=== PATIENT | female | born 1975 | race Caucasian/White ===

== ENCOUNTER 2020-05-07 12:43 | Emergency (ER) | payer SELFPAY ==
[2020-05-07] MEDS ORDERED: PROMETHAZINE INJ 25 MG/ML AMP ONE (14:37)
[2020-05-07] MEDS ORDERED: NA CHLORIDE 0.9% 100 ML IV ONE (14:38)
[2020-05-07] MEDS ORDERED: NA CHLORIDE 0.9% 1,000 ML ONE ×2 (14:38→17:22)
[2020-05-07] MEDS ORDERED: MORPHINE 4 MG/ML SYR ONE ×2 (14:41→17:17)
[2020-05-07 15:32] LABS: Absolute Lymphocytes (CBC) 0.6 K/uL (0.7-4.9); Basophils % 0.7 % (0-1.3); Hematocrit 44.7 % (36.0-45.0); Lymphocytes % 12.1 % (15.3-44.8); MPV 9.6 fL (7.6-11.3); RBC Red Blood Cell Count 4.63 M/uL (3.86-4.86)
[2020-05-07 16:00] LABS: Urine Amorphous Sediment 3+ /HPF (NONE SEEN); Urine Bacteria 20-50 /HPF (<20); Urine Culture Reflex Order REFLEXED; Urine Mucus 4+ /HPF (NONE SEEN)
[2020-05-07 16:00] LABS: Urine Blood TRACE (NEG); Urine Glucose NEGATIVE (NEG); Urine Protein 1+ (NEG)
[2020-05-07 16:04] LABS: Albumin 4.2 g/dL (3.4-5.0); Bilirubin Direct 0.5 mg/dL (0-0.2); Bilirubin Total 1.7 mg/dL (0.2-1.0); Protein, Total 8.1 g/dL (6.4-8.2); Troponin (Emerg Dept Use Only) 0.02 ng/mL (0.0-0.045)
--- NOTE | 2020-05-07 17:01 | RAD REPORT ---
EXAM DESCRIPTION: CTAbdomen Pelvis W Contrast - 05/07/2020 4:48 pm CLINICAL HISTORY: Abdominal pain. ABD PAIN COMPARISON: No comparisons TECHNIQUE: Biphasic CT imaging of the abdomen and pelvis was performed with 100 ml non-ionic IV cont rast. All CT scans are performed using dose optimization technique as appropriate and may include automated exposure control or mA/KV adjustment according to patient size. FINDINGS: The lung bases are clear. The liver demonstrates diffuse fatty infiltration. The spleen, pancreas, adrenal glands and kidneys a re within normal limits. No bowel obstruction, free air, free fluid or abscess. Appendectomy. No evidence of significant lym phadenopathy. No suspicious bony findings. IMPRESSION: No acute intra-abdominal or pelvic finding. Advanced fatty liver.
[2020-05-07] MEDS ORDERED: ONDANSETRON 4 MG/2 ML VIAL ONE (17:22)
--- NOTE | 2020-05-07 17:53 | ER ---
Nurse's Notes [facility] Name: Suzette Bush Age: 44 yrs Sex: Female : 1975 Arrival Date: 05/07/2020 Time: 12:44 Bed 15 Private MD: Diagnosis: Gastritis, unspecified;Vomiting, unspecified Presentation: 05/07 13:13 Chief complaint: Patient states: Severe chest pain since last night, has gotten worse ca1 today. Vomiting x 3 days. A little bit of diarrhea for the past couple of days. Coronavirus screen: Proceed with normal triage. Patient denies a cough. Patient denies shortness of breath or difficulty breathing. Patient denies measured and/or subjective temperature greater than 100.4F prior to today's visit. Patient denies travel on a cruise ship or to a country the [facility] currently lists as an affected area. Patient denies contact with known and/or suspected case of COVID-19. Ebola Screen: Patient negative for fever greater than or equal to 101.5 degrees Fahrenheit, and additional compatible Ebola Virus Disease symptoms Patient denies exposure to infectious person. Patient denies travel to an Ebola-affected area in the 21 days before illness onset. No symptoms or risks identified at this time. Initial Sepsis Screen: Does the patient have a suspected source of infection? No. Patient's initial sepsis screen is negative. Initial Sepsis Screen: Does the patient meet any 2 criteria? No. Patient's initial sepsis screen is negative. Risk Assessment: Do you want to hurt yourself or someone else? Patient reports no desire to harm self or others. Onset of symptoms was May 07, 2020. 13:13 Method Of Arrival: EMS: [facility] ca1 13:13 Acuity: MARIA ELENA 3 ca1 Triage Assessment: 17:41 General: Appears in no apparent distress. comfortable, Behavior is calm, cooperative. ls4 Pain: Denies pain. GI: Reports upper abdominal pain. 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 - Social history:: Smoking status: Patient reports the use of cigarette tobacco products, denies chronic smoking, but will smoke occasionally. - Family history:: not pertinent. - Hospitalizations: : No recent hospitalization is reported. Screenin:10 Abuse screen: Denies threats or abuse. Denies injuries from another. ls4 14:10 Tuberculosis screening: No symptoms or risk factors identified. Fall Risk None ls4 identified. 17:42 Nutritional screening: No deficits noted. ls4 Assessment: 14:15 GI: Abdomen is flat, non-distended, Bowel sounds present X 4 quads. Abd is soft X 4 ls4 quads Abdomen is tender to palpation in epigastric area, right upper quadrant and left upper quadrant Reports upper abdominal pain, cramping, intolerance of fluids, intolerance of food. 14:15 General: Appears uncomfortable, Behavior is anxious. Pain: Complains of pain in right ls4 upper quadrant and left upper quadrant Pain currently is 10 out of 10 on a pain scale. Neuro: No deficits noted. Cardiovascular: No deficits noted. Respiratory: Airway is patent Respiratory effort is even, unlabored, Respiratory pattern is regular, Breath sounds are clear bilaterally. : No deficits noted. No signs and/or symptoms were reported regarding the genitourinary system. Derm: No deficits noted. No signs and/or symptoms reported regarding the dermatologic system. Musculoskeletal: No deficits noted. No signs and/or symptoms reported regarding the musculoskeletal system. 16:00 Reassessment: Patient appears in no apparent distress at this time. Patient and/or ls4 family updated on plan of care and expected duration. Pain level reassessed. Patient is alert, oriented x 3, equal unlabored respirations, skin warm/dry/pink. Patient states symptoms have improved. 17:39 Reassessment: Patient appears in no apparent distress at this time. Patient and/or ls4 family updated on plan of care and expected duration. Pain level reassessed. Patient is alert, oriented x 3, equal unlabored respirations, skin warm/dry/pink. Vital Signs: 13:17 BP 157 / 91; Pulse 86; Resp 15 S; Temp 97.9(O); Pulse Ox 100% on R/A; Weight 49.9 kg ca1 (R); Height 5 ft. 3 in. (160.02 cm) (R); 16:00 BP 148 / 88; Pulse 84; Resp 16; Pulse Ox 99% on R/A; Pain 8/10; ls4 17:40 BP 138 / 79; Pulse 78; Resp 16; Pulse Ox 99% on R/A; Pain 6/10; ls4 13:17 Body Mass Index 19.49 (49.90 kg, 160.02 cm) ca1 ED Course: 12:44 Patient arrived in ED. ag5 13:15 Triage completed. ca1 13:16 Arm band placed on right wrist. ca1 14:09 Rosaline Benoit, MATA is Primary Nurse. ls4 14:10 Cesar Rosenthal MD is Attending Physician. rn 14:10 Patient has correct armband on for positive identification. Bed in low position. Call ls4 light in reach. Side rails up X 1. Pulse ox on. NIBP on. Warm blanket given. Pillow given. Verbal reassurance given. 14:10 No provider procedures requiring assistance completed. ls4 16:47 CT Abd/Pelvis - IV Contrast Only In Process Unspecified. EDMS 17:38 Urine Culture Sent. ls4 17:51 Endy Lott MD is Referral Physician. rn 18:15 Diet: Patient given ice chips. Patient given water. Tolerated well. ls4 05/08 16:20 No apparent distress. ls4 16:20 Initial lab(s) drawn, by me, sent to lab. Inserted saline lock: 22 gauge in left ls4 antecubital area, using aseptic technique. Blood collected. Patient maintains SpO2 saturation greater than 95% on room air. Administered Medications: 05/07 14:59 Drug: morphine 4 mg Route: IVP; Site: left forearm; ls4 15:21 Follow up: Response: No adverse reaction; Marked relief of symptoms; Pain is decreased ls4 14:59 Drug: Phenergan 12.5 mg Route: IVP; Site: left forearm; ls4 15:21 Follow up: Response: No adverse reaction; Marked relief of symptoms ls4 15:21 Drug: NS 0.9% 1000 ml Route: IV; Rate: 1000 ml; Site: left forearm; ls4 17:04 Drug: morphine 4 mg Route: IVP; Site: left forearm; ls4 17:37 Drug: NS 0.9% 1000 ml Route: IV; Rate: 1000 ml; Site: left forearm; ls4 17:37 Drug: Zofran (Ondansetron) 4 mg Route: IVP; Site: left forearm; ls4 18:14 Drug: GI Cocktail without - (Maalox Suspension 30 ml, Lidocaine Liquid 2 % 15 ls4 ml) Route: PO; Outcome: 17:53 Discharge ordered by . rn 18:28 Patient left the ED. ls4 18:28 Discharged to home ambulatory. ls4 18:28 Condition: good 18:28 Discharge instructions given to patient, Instructed on discharge instructions, follow up and referral plans. medication usage, Demonstrated understanding of instructions, follow-up care, wound care, Prescriptions given X 2. Addendum: 05/09/2020 00:36 Addendum: Other VERBAL ORDERS FROM DR ROSENTHAL 05/08/2020 NS 1000 ML BOLUS IV ADMINISTERED l s4 AT 1725, MORPHINE 4 MG IV NOW ADMINISTERED 1726 ZOFRAN 4 MG IV NOW ADMINISTERED 1728, REPEATED BACK TO DR ROSENTHAL AND CONFIRMED BOLUS COMPLETE AT 1819. times charted originally were in error. Signatures: Dispatcher [employer] EDMS Cesar Rosenthal MD MD rn Stewart, Lisa, RN RN ls4 Tequila Sevilla RN RN ca1 Jeffrey Fairchild ag5 Corrections: (The following items were deleted from the chart) 05/08 16:20 05/07 18:46 Patient left the ED. 4 [facility] 05/08 16:21 05/07 14:10 Patient did not have IV access during this emergency room visit. ls4 [facility] 05/08 16:22 05/07 17:42 GI: Abdomen is 4 [facility] 05/09 00:45 00:36 Addendum: Other VERBAL ORDERS FROM DR ROSENTHAL 05/08/2020 NS 1000 ML BOLUS IV ls4 ADMINISTERED AT 1725, MORPHINE 4 MG IV NOW ADMINISTERED 1726 ZOFRAN 4 MG IV NOW ADMINISTERED 1728, REPEATED BACK TO DR ROSENTHAL AND CONFIRMED BOLUS COMPLETE AT 1819. ls4
--- NOTE | 2020-05-07 17:53 | EDPHYS ---
Physician Documentation [facility] Name: Suzette Bush Age: 44 yrs Sex: Female : 1975 Arrival Date: 05/07/2020 Time: 12:44 Bed 15 Private MD: ED Physician Cesar Rosenthal HPI: 05/07 14:20 This 44 yrs old Female presents to ER via EMS with complaints of rn Nausea/Vomiting, Chest Pain. 14:20 The patient presents to the emergency department with nausea, vomiting, abdominal pain. rn 14:20 Onset: The symptoms/episode began/occurred 3 day(s) ago. Possible causes: pancreatitis, rn ETOH. The symptoms are aggravated by pressure. Severity of symptoms: At their worst the symptoms were moderate in the emergency department the symptoms are unchanged. The patient has experienced similar episodes in the past. Reports can't tell if chest pain or abd pain, feels similar to when had pancreatitis in past, no fever/cough/sob. + nausea/vomiting and feels dehydrated.. 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 - Social history:: Smoking status: Patient reports the use of cigarette tobacco products, denies chronic smoking, but will smoke occasionally. - Family history:: not pertinent. - Hospitalizations: : No recent hospitalization is reported. ROS: 14:20 Constitutional: Negative for fever, chills, and weight loss, Eyes: Negative for injury, rn pain, redness, and discharge, Neck: Negative for injury, pain, and swelling, Cardiovascular: Negative for palpitations, and edema, Respiratory: Negative for shortness of breath, cough, wheezing, and pleuritic chest pain, Abdomen/GI: Negative for diarrhea, and constipation, Back: Negative for injury and pain, : Negative for injury, bleeding, discharge, and swelling, MS/Extremity: Negative for injury and deformity, Skin: Negative for injury, rash, and discoloration, Neuro: Negative for headache, weakness, numbness, tingling, and seizure. Exam: 14:20 Constitutional: Thin female, appears uncomfortable Head/Face: Normocephalic, rn atraumatic. ENT: dry MM Cardiovascular: Regular rate and rhythm. No pulse deficits. Respiratory: No increased work of breathing, no retractions or nasal flaring. Abdomen/GI: soft, + epigastric tenderness, no rebound Skin: Warm, dry MS/ Extremity: Pulses equal, no cyanosis. Neurovascular intact. Full, normal range of motion. Equal circumference. Neuro: Awake and alert, GCS 15 Vital Signs: 13:17 BP 157 / 91; Pulse 86; Resp 15 S; Temp 97.9(O); Pulse Ox 100% on R/A; Weight 49.9 kg ca1 (R); Height 5 ft. 3 in. (160.02 cm) (R); 16:00 BP 148 / 88; Pulse 84; Resp 16; Pulse Ox 99% on R/A; Pain 8/10; ls4 17:40 BP 138 / 79; Pulse 78; Resp 16; Pulse Ox 99% on R/A; Pain 6/10; ls4 13:17 Body Mass Index 19.49 (49.90 kg, 160.02 cm) ca1 MDM: 14:10 Patient medically screened. rn 17:50 Differential diagnosis: Nonspecific abd pain, gastritis, pancreatitis, viral rn gastroenteritis, gastroenteritis. Data reviewed: vital signs, nurses notes, lab test result(s), radiologic studies, CT scan, and as a result, I will discharge patient. Counseling: I had a detailed discussion with the patient and/or guardian regarding: the historical points, exam findings, and any diagnostic results supporting the discharge/admit diagnosis, lab results, radiology results, the need for outpatient follow up, to return to the emergency department if symptoms worsen or persist or if there are any questions or concerns that arise at home. Response to treatment: the patient's symptoms have markedly improved after treatment, and as a result, I will discharge patient. Special discussion: Based on the patient's Hx, exam, and Dx evaluation, there is no indication for emergent surgery or inpatient Tx. It is understood by the patient/guardian that if the Sx's persist or worsen they need to return immediately for re-evaluation. I discussed with the patient/guardian in detail that at this point there is no indication for admission to the hospital. It is understood, however, that if the symptoms persist or worsen the patient needs to return immediately for re-evaluation. ED course: Pt improved, CT without acute findings, clinically could be enteritis vs pancreatitis vs gastritis, will dc home with pain meds/prn nausea meds, and return precautions. Advised to stop drinking, as likely what triggered this event. . 05/07 14:19 Order name: Basic Metabolic Panel; Complete Time: 16:31 05/07 14:19 Order name: CBC with Diff; Complete Time: 16: 05/07 14:19 Order name: Hepatic Function; Complete Time: 16: 05/07 14:19 Order name: Lipase; Complete Time: 16: 05/07 14:19 Order name: Troponin (emerg Dept Use Only); Complete Time: 16: 05/07 14:19 Order name: ETOH Level; Complete Time: 16: 05/07 14:19 Order name: Urine Microscopic Only; Complete Time: 16: 05/07 15:09 Order name: Urine Dipstick--Ancillary (enter results); Complete Time: 16: 05/07 15:09 Order name: Urine --Ancillary (enter results); Complete Time: 16: 05/07 16:01 Order name: Urine Culture [facility] 05/07 16:31 Order name: CT Abd/Pelvis - IV Contrast Only; Complete Time: 17:02 05/07 13:17 Order name: EKG; Complete Time: 13:18 [facility] 05/07 13:17 Order name: EKG - Nurse/Tech; Complete Time: 13:24 [facility] 05/07 14:19 Order name: IV Saline Lock; Complete Time: 14:59 05/07 14:19 Order name: Labs collected and sent; Complete Time: 14:59 05/07 14:19 Order name: Urine Test (obtain specimen); Complete Time: 14:59 05/07 14:19 Order name: Urine Dipstick-Ancillary (obtain specimen); Complete Time: 14:59 05/07 17:10 Order name: PO challenge; Complete Time: 17:37 rn Administered Medications: 14:59 Drug: morphine 4 mg Route: IVP; Site: left forearm; ls4 15:21 Follow up: Response: No adverse reaction; Marked relief of symptoms; Pain is decreased ls4 14:59 Drug: Phenergan 12.5 mg Route: IVP; Site: left forearm; ls4 15:21 Follow up: Response: No adverse reaction; Marked relief of symptoms ls4 15:21 Drug: NS 0.9% 1000 ml Route: IV; Rate: 1000 ml; Site: left forearm; ls4 17:04 Drug: morphine 4 mg Route: IVP; Site: left forearm; ls4 17:37 Drug: NS 0.9% 1000 ml Route: IV; Rate: 1000 ml; Site: left forearm; ls4 17:37 Drug: Zofran (Ondansetron) 4 mg Route: IVP; Site: left forearm; ls4 18:14 Drug: GI Cocktail without - (Maalox Suspension 30 ml, Lidocaine Liquid 2 % 15 ls4 ml) Route: PO; Disposition: 05/07/20 17:53 Discharged to Home. Impression: Gastritis, unspecified, Vomiting, unspecified. - Condition is Stable. - Discharge Instructions: Gastritis, Adult, Nausea and Vomiting, Adult. - Prescriptions for Zofran ODT 4 mg Oral tablet,disintegrating - place 1 tablet by TRANSLINGUAL route every 8 hours As needed; 20 tablet. Protonix 40 mg Oral Tablet - take 1 tablet by ORAL route once daily; 30 tablet. Tramadol 50 mg Oral Tablet - take 1 tablet by ORAL route every 8 hours as needed; 15 tablet. - Medication Reconciliation Form, Thank You Letter, Antibiotic Education, Prescription Opioid Use form. - Follow up: Endy Lott MD; When: As needed; Reason: Recheck today's complaints, Re-evaluation by your physician. - Problem is new. - Symptoms have improved. Signatures: Dispatcher [employer] EDVA Cesar Rosenthal MD MD rn Stewart, Lisa, RN RN ls4 Tequila Sevilla RN RN ca1 Corrections: (The following items were deleted from the chart) 18:46 17:53 05/07/2020 17:53 Discharged to Home. Impression: Gastritis, unspecified; ls4 Vomiting, unspecified. Condition is Stable. Forms are Medication Reconciliation Form, Thank You Letter, Antibiotic Education, Prescription Opioid Use. Follow up: Endy Lott; When: As needed; Reason: Recheck today's complaints, Re-evaluation by your physician. Problem is new. Symptoms have improved. rn
[2020-05-07] MEDS ORDERED: MAGNE/ALUM HYDROXD 30 ML UCUP ONE (18:25)
[2020-05-07] MEDS ORDERED: LIDOCAINE VISCOUS 2% SOLN 15 ML UDC ONE (18:25)
[2020-05-07 18:56] VITALS: TEMP 97.9
[2020-05-07 18:57] VITALS: O2SAT 99
[2020-05-07 18:58] VITALS: BP 138/79
--- NOTE | 2020-05-08 10:20 | EKG ---
Test Date: 2020-05-07 Test Time: 13:24:13 Bridge Rigger: GERARD MEASUREMENT RESULTS: Intervals: Rate: 73 CO: 108 QRSD: 58 QT: 382 QTc: 420 [place]: P: 72 CO: 108 QRS: 69 T: 76 INTERPRETIVE STATEMENTS: Sinus rhythm with short CO Otherwise normal ECG No previous ECG available for comparison Electronically Signed On 05-08-20 10:18:55 CDT by Feng Beach
== END 2020-05-07 18:46 | disposition home or self-care (01) ==
LOC: ER 12:43
DX: K29.70 Gastritis, unspecified, without bleeding (principal); F41.9 Anxiety disorder, unspecified; Z72.0 Tobacco use
CPT/HCPCS: 36415; 74177; 80048; 80076; 80320; 81003; 81015; 81025; 83690; 84484; 85025; 87086; 87088; 93005; 96374; 96375; 99284; J2405; J2550; J7030; Q9967

== ENCOUNTER 2020-05-24 05:21 | Inpatient (IN) | payer SELFPAY ==
--- OUTSIDE RECORDS SUMMARY | 2020-05-24 05:25 | XMS REPORT | Clinical Summary ---
:1975 Author Organization [facility] Address [address] [place] [address] Care Team Providers Name Role Phone Asked, No Pcp Primary Care Provider Unavailable Allergies No Known Allergies Medications Medication Sig Dispensed Refills Start Date End Date Status ALPRAZolam (XANAX) Take 0.5 mg by 0 Active 0.5 MG tablet mouth nightly as needed for anxiety. diazePAM (VALIUM) 5 Take 5 mg by 0 Active MG tablet mouth every 6 (six) hours as needed for anxiety. traMADoL (ULTRAM) 50 Take 50 mg by 0 Active mg tabletIndications: mouth every 6 acute pain (six) hours as needed for moderate pain .acute pain. HYDROcodone-acetamino Take 1 tablet by 0 Active phen (NORCO) 7.5-325 mouth every 6 mg per (six) hours as tabletIndications: needed for acute pain moderate pain .acute pain. hydrOXYzine (ATARAX) Take 1 tablet 30 tablet 0 01/31/2020 Active 25 MG tablet (25 mg total) by mouth every 6 (six) hours as needed for anxiety. ibuprofen (ADVIL) 600 Take 1 tablet 20 tablet 0 12/24/2019 MG tablet (600 mg total) by mouth every 6 (six) hours as needed for moderate pain for up to 5 days. Take with food acetaminophen-codeine Take 1 tablet by 20 tablet 0 12/24/2019 12/29/2019 (TYLENOL WITH CODEINE mouth every 6 #3) 300-30 mg per (six) hours as tabletIndications: needed for acute pain severe pain for up to 5 days .acute pain. Do not drive dicyclomine (BENTYL) Take 1 tablet 20 tablet 0 01/09/2020 03 20 mg tablet (20 mg total) by mouth 2 (two) times a day as needed (abdominal cramping) for up to 30 days. promethazine Take 1 tablet 15 tablet 0 01/09/2020 02/08/2020 E xpired (PHENERGAN) 25 MG (25 mg total) by tablet mouth every 6 (six) hours as needed for nausea or vomiting for up to 30 days. Active Problems Not on file Encounters Date Type Specialty Care Team Description 01/31/2020 Emergency Emergency Medicine Gregory Bryan ety reaction (Primary Dx); DO Isaac Epigastric pain 01/09/2020 Emergency Emergency Medicine Krishan Fernandez MD Nausea vomiting and diarrhea (Primary Dx); Volume depletio n 12/24/2019 Emergency Emergency Medicine Isaac Mario MD R ight foot pain (Primary Dx); Contusion of ri ght foot, initial encounter; Fall on stairs, initial encounter after 05/24/2019 Social History Tobacco Use Types Packs/Day Years Used Date Current Some Day Smoker Cigarettes Smokeless Tobacco: Never Used Alcohol Use Drinks/Week oz/Week Comments Yes social Sex Assigned at Date Recorded Not on file Job Start Date Occupation Industry Not on file Not on file Not on file Travel History Travel Start Travel End No recent travel history available. Last Filed Vital Signs Vital Sign Reading Time Taken Comments Blood Pressure 145/90 01/31/2020 3:22 AM CDT Pulse 77 01/31/2020 3:22 AM CDT Temperature 37 C (98.6 F) 01/31/2020 12:29 AM CDT Respiratory Rate 20 01/31/2020 3:22 AM CDT Oxygen Saturation 98% 01/31/2020 3:22 AM CDT Inhaled Oxygen Concentration - - Weight 40.8 kg (90 lb) 01/31/2020 12:27 AM CDT Height 157.5 cm (5' 2") 01/31/2020 12:27 AM CDT Body Mass Index 16.46 01/31/2020 12:27 AM CDT Plan of Treatment Health Maintenance Due Date Last Done Comments CERVICAL CANCER SCREENING 1998 INFLUENZA VACCINE 06/11/2020 Procedures Procedure Name Priority Date/Time Associated Comments Diagnosis ED REFERRAL TO [facility] Routine 01/31/2020 3:03 EPISCOPAL PHYSICIAN AM CDT ORGANIZATION CT ABDOMEN PELVIS W STAT 01/31/2020 2:37 Resu lts for this CONTRAST AM CDT procedure are i n the results section. CT ANGIOGRAM PE CHEST STAT 01/31/2020 2:36 Re sults for this AM CDT procedure are i n the results section. HCG QUALITATIVE, URINE STAT 01/31/2020 12:35 R esults for this SCREEN AM CDT procedure are i n the results section. URINALYSIS STAT 01/31/2020 12:35 Results for this AM CDT procedure are i n the results section. ESTIMATED GFR STAT 01/31/2020 12:30 Results fo r this AM CDT procedure are i n the results section. LIPASE LEVEL STAT 01/31/2020 12:30 Results for this AM CDT procedure are i n the results section. AMYLASE LEVEL STAT 01/31/2020 12:30 Results fo r this AM CDT procedure are i n the results section. HC COMPLETE BLD COUNT STAT 01/31/2020 12:30 Re sults for this W/AUTO DIFF AM CDT procedure are i n the results section. TROPONIN, I-STAT STAT 01/31/2020 12:30 Results for this AM CDT procedure are i n the results section. CREATINE KINASE, TOTAL STAT 01/31/2020 12:30 R esults for this (CPK) AM CDT procedure are i n the results section. LACTIC ACID, I-STAT STAT 01/31/2020 12:30 Resu lts for this AM CDT procedure are i n the results section. COMPREHENSIVE METABOLIC STAT 01/31/2020 12:30 Results for this PANEL AM CDT procedure are i n the results section. ECG ED PRELIMINARY Routine 01/31/2020 12:28 Resul ts for this INTERPRETATION AM CDT procedure are in the results section. ECG 12-LEAD STAT 01/31/2020 12:21 Results for this AM CDT procedure are i n the results section. HCG QUALITATIVE, URINE STAT 01/09/2020 4:59 R esults for this SCREEN PM [employer] procedure are i n the results section. URINALYSIS STAT 01/09/2020 4:59 Results for this PM [employer] procedure are i n the results section. STREP SCREEN CULTURE Routine 01/09/2020 3:59 Res ults for this PM [employer] procedure are i n the results section. GROUP A STREP, RAPID Routine 01/09/2020 3:49 Res ults for this ANTIGEN PM [employer] procedure are i n the results section. INFLUENZA ANTIGEN Routine 01/09/2020 3:49 Result s for this PM [employer] procedure are i n the results section. ESTIMATED GFR STAT 01/09/2020 3:47 Results fo r this PM [employer] procedure are i n the results section. AMYLASE LEVEL STAT 01/09/2020 3:47 Results fo r this PM [employer] procedure are i n the results section. COMPREHENSIVE METABOLIC STAT 01/09/2020 3:47 Results for this PANEL PM [employer] procedure are i n the results section. HC COMPLETE BLD COUNT STAT 01/09/2020 3:47 Re sults for this W/AUTO DIFF PM [employer] procedure are i n the results section. XR FOOT 3+ VW RIGHT STAT 12/24/2019 9:48 Resu lts for this PM [employer] procedure are i n the results section. after 05/24/[address] Abdomen Pelvis W Contrast (01/31/2020 2:37 AM CDT) Specimen Narrative Performed At EXAM: CT ABDOMEN PELVIS W CONTRAST [facility] CLINICAL HISTORY: epigastric and lower chest pain possible pancreatitis TECHNIQUE: Multidetector CT of the abdomen and pelvis was performed following intravenous administration of iodinated cont rast with multiplanar reformats. CT scans are performed using radiation dose reduction techniques (iterative reconstruction and/or automated exposure co ntrol). Technical factors are evaluated and adjusted to ensure appropria te moderation of exposure. Automated dose solid waste management engineer nology is applied to adjust radiation exposure while achievi ng a diagnostic quality image. COMPARISON: None FINDINGS: Lung bases: Unremarkable. Liver: Hepatomegaly and moderate hepatic steatosis. No evidence for suspicious focal hepatic lesion. Gallbladder and biliary: The gallbladder is absent. Clips within the gallbladder fossa. Dilatation of the common duct witho ut an obstructing choledocholithiasis is most consistent w ith a reservoir effect. Pancreas: No focal pancreatic lesion identified. No pancreatic duct dilatation. Spleen: Unremarkable. Gastrointestinal: Stomach is unremarkable in appeara nce. Large and small bowel are normal in caliber. Patie nt is status post appendectomy. Peritoneum: No ascites or free air. Adrenals: Unremarkable. Kidneys and ureters: There is no evidence for large irregular renal mass, obstructing calculi, hydronephrosi s, or hydroureter. Urinary bladder: Incompletely distended bladder with m ild mural thickening; correlate findings with urinalysis to excl ude concurrent cystitis. Reproductive organs: Uterus is unremar kable in appearance per CT. Lymph nodes: No enlarged lymph nodes i n the abdomen or pelvis. Vascular: Unremarkable. Abdominal wall: Unremarkable. Bones: Couple remote, healed right lateral rib fract ures noted. No acute osseous abnormality identified. IMPRESSION: 1.Incompletely distended bladder with mild mural thick ening; correlate findings with urinalysis to exclude concurrent cystiti s. Otherwise no CT evidence for acute abdominopelvic proces s. 2.Hepatomegaly and moderate hepatic stea tosis. 3.Status post cholecystectomy. Dilatation of the commo n duct without an obstructing choledocholithiasis is most consistent wit h a reservoir effect. 4.Additional chronic findings as detaile d above. [id number] Procedure Note Interface, Radiology Results Incoming - 01/31/2020 2:46 AM CDT EXAM: CT ABDOMEN PELVIS W CONTRAST CLINICAL HISTORY: epigastric and lower chest pain possible pancreatitis TECHNIQUE: Multidetector CT of the abdom en and pelvis was performed following intravenous administration of iodinated contrast with multiplanar reformats. CT scans are performed using radiation d ose reduction techniques (iterative reconstruction and/or automated exposure control). Technical factors are evaluated and adjusted to ensure appropriate moderation of exposure. Automated dose solid waste management engineer nology is applied to adjust radiation exposure while achieving a diagnostic quality image. COMPARISON: None FINDINGS: Lung bases: Unremarkable. Liver: Hepatomegaly and moderate hepatic steatosis. No evidence for suspicious focal hepatic lesion. Gallbladder and biliary: The gallbladde r is absent. Clips within the gallbladder fossa. Dilatation of the common duct without an obstructing choledocholithiasis is most consistent with a reservoir effect. Pancreas: No focal pancreatic lesion id entified. No pancreatic duct dilatation. Spleen: Unremarkable. Gastrointestinal: Stomach is unremarkab le in appearance. Large and small bowel are normal in caliber. Patient is status post appendectomy. Peritoneum: No ascites or free air. Adrenals: Unremarkable. Kidneys and ureters: There is no eviden ce for large irregular renal mass, obstructing calculi, hydronephrosis, or hydroureter. Urinary bladder: Incompletely distended bladder with mild mural thickening; correlate findings with urinalysis to exclude concurrent cystitis. Reproductive organs: Uterus is unremark able in appearance per CT. Lymph nodes: No enlarged lymph nodes in the abdomen or pelvis. Vascular: Unremarkable. Abdominal wall: Unremarkable. Bones: Couple remote, healed right late ral rib fractures noted. No acute osseous abnormality identified. IMPRESSION: 1.Incompletely distended bladder with mi ld mural thickening; correlate findings with urinalysis to exclude concurrent cystitis. Otherwise no CT evidence for acute abdominopelvic process. 2.Hepatomegaly and moderate hepatic stea tosis. 3.Status post cholecystectomy. Dilatatio n of the common duct without an obstructing choledocholithiasis is most consistent with a reservoir effect. 4.Additional chronic findings as detaile d above. [id number] Performing Organization Address City/State/Zipcode Phone Number [facility] [address] [place] [address] CT Angiogram Pe Chest (01/31/2020 2:36 AM CDT) Specimen Narrative Performed At [facility]: PE suspected high pretest prob COMPARISON: None. TECHNIQUE: CT angiographic images of the chest were obtained during intravenous administration of iodinated contrast. Co mputerized, reformatted images and 3-D MIP images were obtained an d archived (per CT pulmonary embolism protocol). CT scans are performed using radiation dose reduction techniques (iterative reconstruction and/or automated exposure co ntrol). Technical factors are evaluated and adjusted to ensure appropria te moderation of exposure. Automated dose solid waste management engineer nology is applied to adjust radiation exposure while achievi ng a diagnostic quality image. IMPRESSION: Lungs and large airways: No consolidations, effusion s, or pneumothorax. Trachea and mainstem bronc hi are patent. Heart and pericardium: Heart size is normal. Trace p ericardial effusion. Mediastinum and roxann: Minimal residual thymic tissue is seen of the anterior mediastinum. Lymph nodes: No pathological adenopathy in the roxann, axilla or mediastinum. Pulmonary arteries: No main branch, saddle region, or segmental pulmonary embolus is seen. Vasculature: No aortic aneurysm, disse ction, or pseudoaneurysm. Upper abdomen: No focal abnormality de tected with limited evaluation. Bones: Old right-sided rib fractures. No acute osseous abnormalities. Soft tissues: Unremarkable. Summary: 1. Negative CTA examination for pulmonar y embolism. 2. Lungs without acute airspace disease. [id number] Procedure Note Interface, Radiology Results Incoming - 01/31/2020 2:[address] ANGIOGRAM PE CHEST CLINICAL INDICATION: PE suspected high pretest prob COMPARISON: None. TECHNIQUE: CT angiographic images of th e chest were obtained during intravenous administration of iodinated contrast. Computerized, reformatted images and 3-D MIP images were obtained and archived (per CT pulmonary embolism protocol). CT scans are performed using radiation d ose reduction techniques (iterative reconstruction and/or automated exposure control). Technical factors are evaluated and adjusted to ensure appropriate moderation of exposure. Automated dose solid waste management engineer nology is applied to adjust radiation exposure while achieving a diagnostic quality image. IMPRESSION: Lungs and large airways: No consolidati ons, effusions, or pneumothorax. Trachea and mainstem bronchi are patent. Heart and pericardium: Heart size is no rmal. Trace pericardial effusion. Mediastinum and roxann: Minimal residual thymic tissue is seen of the anterior mediastinum. Lymph nodes: No pathological adenopathy in the roxann, axilla or mediastinum. Pulmonary arteries: No main branch, sadd le region, or segmental pulmonary embolus is seen. Vasculature: No aortic aneurysm, dissec tion, or pseudoaneurysm. Upper abdomen: No focal abnormality det ected with limited evaluation. Bones: Old right-sided rib fractures. N o acute osseous abnormalities. Soft tissues: Unremarkable. Summary: 1. Negative CTA examination for pulmonar y embolism. 2. Lungs without acute airspace disease. [id number] Performing Organization Address City/State/Zipcode Phone Number [facility] [address] [place] [address] Urinalysis (01/31/2020 12:35 AM CDT)Only the most recent of2 resultswithin the time period is included. Glucose, UA Negative Negative [facility] Bilirubin, UA Positive@UBIL (A) Negative [facility] Ketones, UA 2+ (A) Negative [facility] Specific gravity, 1.020 1.001 - 1.035 [facility] Blood, UA Negative Negative [facility] pH, UA 6.5 5.0 - 8.5 [facility] Protein, UA Trace (A) Negative [facility] Urobilinogen, UA <2.0 <2.0 [facility] Nitrite, UA Negative Negative [facility] Leukocyte Small (A) Negative [facility] esterase, UA [facility] Color, UA Dark Yellow [facility] Appearance, UA Cloudy [facility] Specimen Urine Performing Organization Address City/State/Zipcode Phone Number DEPARTMENT OF PATHOLOGY AND [address] [place] [address]. [place], [place] [phone] [facility] hCG qualitative, urine screen (01/31/2020 12:35 AM CDT)Only the most recent of2 resultswithin the time period is included. Pathologist [facility] hCG qualitative, Negative [facility] urine Comment: [facility] Sensitivity of HCG test: 25 mIU/mL [facility] Negative test results in patients suspected to be should be retested with a sample obtained 48-72 hours later, or by performing a quantitative assay. Specimen Urine Performing Organization Address City/[facility] Phone Number DEPARTMENT OF PATHOLOGY AND [address] [place] [phone] Estimated GFR (01/31/2020 12:30 AM CDT)Only the most recent of2 resultswithin the time period is included. Pathologist [facility] Estimated GFR 79 mL/min/1.73 [facility] Comment: [address] EMERGENCY Catergory Units Interpretation [facility] G1 >=90 Normal or high G2 60-89 Mildly decreased G3a 45-59 Mildly to moderately decreas ed G3b 30-44 Moderately to severely decre ased G4 15-29 Severely decreased G5 <15 Kidney failure The eGFR was calculated using the Chronic Kidney Disea se Epidemiology Collaboration (CKD-EPI) equation. Interpretation is based on recommendations of the National Kidney Foundation-Kidney Disease Outcomes Charles lity Initiative (NKF-KDOQI) published in 2014. Specimen Performing Organization Address City/State/Zipcode Phone Number DEPARTMENT OF PATHOLOGY AND [address] [place] [address]. [place], [place] [phone] [facility] [address] [place] [address] Troponin, I-Stat (01/31/2020 12:30 AM CDT) Pathologist [facility] Troponin, I-Stat 0.00 0.00 - 0.08 [facility] Comment: ng/mL [facility] 0.09 - 1.49 ng/ml May indicate increa sed risk of acute [facility] coronary syndrome. >=1.5 ng/ml Consistent with acute myocardial infarction. The diagnostic value of a single normal or non-diagnos tic result is questionable. Serial samples at 2-6 hour i ntervals are required to rule out acute myocardial injury. Specimen Blood Performing Organization Address City/[facility] Phone Number DEPARTMENT OF PATHOLOGY AND [address] [place] [phone] [facility] [address] [place] [address] Lactic acid, I-Stat (01/31/2020 12:30 AM CDT) Pathologist [facility] Lactic acid, I-Stat 1.7 0.5 - 2.2 mmol/L [facility] Specimen Blood Performing Organization Address City/[facility] Phone Number DEPARTMENT OF PATHOLOGY AND [address] [place] [phone] [facility] [address] CBC with platelet and differential (01/31/2020 12:30 AM CDT)Only the most recent of2 resultswithin the time period is included. [facility] WBC 6.35 4.50 - 11.00 k/uL [facility] RBC 4.45 4.20 - 5.50 m/uL [facility] HGB 14.0 12.0 - 16.0 g/dL [facility] HCT 42.4 37.0 - 47.0 % [facility] MCV 95.3 82.0 - 100.0 fL [facility] MCH 31.5 27.0 - 34.0 pg [facility] MCHC 33.0 31.0 - 37.0 g/dL [facility] RDW - SD 43.4 37.0 - 55.0 fL [facility] MPV 10.1 8.8 - 13.2 fL [facility] Platelet count 252 150 - 400 k/uL [facility] Neutrophils 79.1 (H) 39.0 - 69.0 % [facility] Lymphocytes 13.2 (L) 25.0 - 45.0 % [facility] Monocytes 6.3 0.0 - 10.0 % [facility] Eosinophils 0.8 0.0 - 5.0 % [facility] Basophils 0.6 0.0 - 1.0 % [facility] Specimen Blood Performing Organization Address City/State/[facility] Phone Number DEPARTMENT OF PATHOLOGY AND [address] [place] [phone] Lipase level (01/31/2020 12:30 AM CDT) Pathologist Sig nature Lipase 25 13 - 60 U/L [facility] Specimen Serum Performing Organization Address City/[facility] Phone Number [facility] DEPARTMENT OF PATHOLOGY AND [address] [place] [address] [phone] [address] Creatine kinase, total (CPK) (01/31/2020 12:30 AM CDT) Pathologist Sig nature Creatine kinase 36 30 - 190 U/L [facility] Specimen Blood Performing Organization Address City/[facility] Phone Number DEPARTMENT OF PATHOLOGY AND [address] [place] [phone] Amylase level (01/31/2020 12:30 AM CDT)Only the most recent of2 resultswithin the time period is included. Pathologist Sig nature Amylase 31 14 - 97 U/L [facility] Specimen Serum Performing Organization Address City/[facility]/Zipcode Phone Number DEPARTMENT OF PATHOLOGY AND [address] [place] [phone] [facility] [address] [place] [address] Comprehensive metabolic panel (01/31/2020 12:30 AM CDT)Only the most recent of2 resultswithin the time period is included. Sodium 135 128 - 145 [facility] mEq/L [facility] Potassium 5.1 3.6 - 5.1 [facility] mEq/L [facility] CO2 32 18 - 33 mEq/L [facility] Chloride 105 98 - 108 mEq/L [facility] Glucose 136 (H) 73 - 118 mg/dL [facility] Calcium 10.1 8.0 - 10.3 [facility] mg/dL [facility] BUN 11 7 - 22 mg/dL [facility] Creatinine 0.9 0.5 - 0.9 [facility] mg/dL [facility] Alkaline phosphatase 228 (H) 42 - 141 U/L [facility] ALT 60 (H) 10 - 47 U/L [facility] AST 134 (H) 11 - 38 U/L [facility] Total bilirubin 1.2 0.2 - 1.6 [facility] mg/dL [facility] Albumin 4.0 3.3 - 5.5 g/dL [facility] Protein 8.3 (H) 6.4 - 8.1 g/dL [facility] Anion gap -2@ANIO (L) 7 - 15 mEq/L [facility] A/G ratio 0.9 0.7 - 3.8 [facility] Specimen Blood Performing Organization Address City/State/Zipcode Phone Number DEPARTMENT OF PATHOLOGY AND [address] [place] [phone] [facility]IC[facility], [facility] [address] [place] [address] [facility] ECG ED Preliminary Interpretation - Not an Order (01/31/2020 12:28 AM CDT) Narrative Performed At Gregory Bryan DO 2019 3:05 AM ECG ED Preliminary Interpretation - Not an Order Performed by: Gregory Bryan DO Authorized by: Gregory Bryan DO ECG reviewed by ED Physician in the abse nce of a cannery tender engineer: yes Interpretation: Interpretation: abnormal Rate: ECG rate: 91 ECG rate assessment: normal Rhythm: Rhythm: sinus rhythm Ectopy: Ectopy: none QRS: QRS axis: Normal QRS intervals: Normal Conduction: Conduction: normal ST segments: ST segments: Normal T waves: T waves: normal Other findings: Other findings: COLTEN ECG 12 lead (01/31/2020 12:21 AM CDT) Pathologist Sig nature Ventricular rate 91 [facility] Atrial rate 91 [facility] AK interval 118 [facility] QRSD interval 50 [facility] QT interval 348 [facility] QTC interval 428 [facility] P axis 1 84 [facility] QRS axis 1 59 [facility] T wave axis 55 [facility] EKG impression Normal sinus rhythm [facility] MUSE with sinus arrhythmia-Right atrial enlargement-Septal infarct , age undetermined-Abnormal ECG-No previous ECGs available-Electronicall y Signed By Jeanine Condon MD ([id number]) on 02/01/2020 8:23:35 AM Specimen Narrative Performed At This result has an attachment that is no t available. Performing Organization Address City/State/Zipcode Phone Number [facility] MUSE [address] [place] [address] Strep screen culture (01/09/2020 3:59 PM [employer]) Strep screen No beta hemolytic Streptococci isolated [facility] culture isolate Comment: HOSPITAL Specimen Information Specimen Source: Throat Specimen Site: Not otherwise specified Specimen Throat - Not otherwise specified Performing Organization Address City/State/Zipcode Phone Number [facility] DEPARTMENT OF PATHOLOGY AND [address] [place] [phone] [facility] [address] [address] Group A strep, rapid antigen (01/09/2020 3:49 PM LINING CLEANER) Group A strep, Negative for Group A Streptococcus antigen. [facility] rapid antigen Comment: [facility] result Specimen Information [facility]ARE [facility]ENTER Specimen Source: Throat Specimen Site: Not otherwise specified Specimen Throat - Not otherwise specified Performing Organization Address City/State/Zipcode Phone Number DEPARTMENT OF PATHOLOGY AND [address] [place], [place] [address] [facility], [facility] [address] [facility], [place] [address] CARE CENTER Influenza antigen (01/09/2020 3:49 PM LINING CLEANER) Influenza antigen Negative for Influenza A/B antigen. [facility] Comment: [facility] Specimen [facility] Specimen Source: Nar Specimen Site: Other- Detailed Description Required Specimen [facility] - Other- Detailed Description Requ ired Performing Organization Address City/State/Zipcode Phone Number DEPARTMENT OF PATHOLOGY AND [address] [facility]. [place], [place] [address] [facility], [facility] EPISCOPAL [facility] [address] [place] [address] [facility] XR Foot 3+ Vw Right (12/24/2019 9:48 PM LINING CLEANER) Specimen Narrative Performed At EXAMINATION: XR FOOT 3 VW RIGHT [facility] CLINICAL HISTORY: fall COMPARISON: None. IMPRESSION: No acute osseous abnormality or malalign ment is noted. [id number] Procedure Note Interface, Radiology Results Incoming - 12/24/2019 9:53 PM LINING CLEANER EXAMINATION: XR FOOT 3 VW RIGHT CLINICAL HISTORY: fall COMPARISON: None. IMPRESSION: No acute osseous abnormality or malalign ment is noted. [id number] Performing Organization Address City/State/Zipcode Phone Number [facility] [address] [place] [address] after 05/24/2019 Advance Directives For more information, please contact: [phone] Type Date Recorded Patient Sales And Marketing Assistant Explanati on Advance Directives, Living Will and Medical Power of Machine Stapler
--- OUTSIDE RECORDS SUMMARY | 2020-05-24 05:26 | XMS REPORT | Continuity of Care Document ---
:1975 Author Organization [facility] t Address [facility] [place] [address] Care Team Providers Name Role Phone Asked, No Pcp Primary Care Physician Unavailable Jaqueline Bryan DO Attending Clinician Shad Fernandez MD Attending Clinician Stanton Mario MD Attending Clinician Problems This patient has no known problems. Allergies, Adverse Reactions, Alerts This patient has no known allergies or adverse reactions. Social History Social Habit Start Date Stop Date Quantity Comments Source History of Cigarette Smoker [facility] tobacco use Sex Assigned At [facility] ethodi Alcohol intake 2020-01-31 2020-01-31 Current drinker [place] [facility] 00:00:00 00:00:00 of alcohol (finding) Alcohol Comment 2019-12-24 2019-12-24 social [facility] ethodist 00:00:00 00:00:00 Smoking Status Start Date Stop Date Source Current some day smoker 2020-01-31 00:00:00 Hous [facility] Medications Ordered Filled Start Stop Current Ordering Indication Dosage Frequency Signature Comments Components Source Medication Medication Date Date Medication? Clinician (SIG) Name Name traMADoL 2020-0 Yes acute pain 50mg Q6H Take 50 mg [place] (ULTRAM) 50 3-22 by mouth Meth [place] mg tablet 00:45: every 6 st 37 (six) hours as needed for moderate pain .acute pain. HYDROcodone 2019-0 Yes acute pain 1{tbl} Q6H Take 1 [place] -acetaminop 3-22 tablet by Met douglas muller (NORCO) 00:45: mouth st 7.5-325 mg 37 every 6 per tablet (six) hours as needed for moderate pain .acute pain. ALPRAZolam 2020-0 Yes .5mg QD Take 0.5 Chiki ston (XANAX) 0.5 3-22 mg by Methodi MG tablet 00:31: mouth st 08 nightly as needed for anxiety. diazePAM 2020-0 Yes 5mg Q6H Take 5 mg [place] (VALIUM) 5 3-22 by mouth Metho di MG tablet 00:31: every 6 st 08 (six) hours as needed for anxiety. hydrOXYzine 2020-0 Yes 25mg Q6H Take 1 [place] (ATARAX) 25 3-22 tablet (25 Me thodi MG tablet 00:00: mg total) st 00 by mouth every 6 (six) hours as needed for anxiety. dicyclomine 2019-0 2020- No 20mg Q.5D Take 1 [place] ston (BENTYL) 20 -30 tablet (20 M ethodi mg tablet 00:00: 23:59 mg total) st 00 :00 by mouth 2 (two) times a day as needed (abdominal cramping) for up to 30 days. promethazin 2020-0 2020- No 25mg Q6H Take 1 Chiki ston e -30 tablet (25 Methodi (PHENERGAN) 00:00: 23:59 mg total) st 25 MG 00 :00 by mouth tablet every 6 (six) hours as needed for nausea or vomiting for up to 30 days. ibuprofen 2019-0 2020- No 600mg Q6H Take 1 [place] (ADVIL) 600 12-24-18 tablet Metho di MG tablet 00:00: 23:59 ([address] 00 :00 total) by mouth every 6 (six) hours as needed for moderate pain for up to 5 days. Take with food acetaminoph 2020-0 2020- No acute pain 1{tbl} Q6H Take 1 [place] en-codeine 12-24-18 tablet by Met douglas (TYLENOL 00:00: 23:[address] WITH 00 :00 every 6 CODEINE #3) (six) 300-30 mg hours as per tablet needed for severe pain for up to 5 days .acute pain. Do not drive Vital Signs Vital Name Observation Time Observation Value Comments Source Systolic blood 2020-01-31 03:22:00 145 mm[Hg] Farhad Albertist pressure Diastolic blood 2020-01-31 03:22:00 90 mm[Hg] Eddie on Religious pressure Heart rate 2020-01-31 03:22:00 77 /min [place] Religious Respiratory rate 2020-01-31 03:22:00 20 /min Shelby gerson Religious Oxygen saturation in 2020-01-31 03:22:00 98 /min [place] Religious Arterial blood by Pulse oximetry Body temperature 2020-01-31 00:29:46 37 Cammy [place] Religious Body height 2020-01-31 00:27:00 157.5 cm [place] Religious Body weight 2020-01-31 00:27:00 40.824 kg Ceasar Albrecht BMI 2020-01-31 00:27:00 16.46 kg/m2 Ceasar Albrecht Procedures Procedure Date / Time Performing Clinician Source Performed ED REFERRAL TO FENTRESS 2020-01-31 03:03:29 Gregory Bryan WORSHIP PHYSICIAN Jaqueline LANIER CT ABDOMEN PELVIS W 2020-01-31 02:37:07 Gregory Bryan CONTRAST Jaqueline CT ANGIOGRAM PE CHEST 2020-01-31 02:36:42 Gregory Bryan URINALYSIS 2020-01-31 00:35:00 Gregory Bryan Nv stefan Gray HCG QUALITATIVE, URINE 2020-01-31 00:35:00 Gregory Bryan SCREEN Jaqueline COMPREHENSIVE METABOLIC 2020-01-31 00:30:00 Gregory Bryan PANEL Jaqueline LACTIC ACID, I-STAT 2020-01-31 00:30:00 Gregory Bryan CREATINE KINASE, TOTAL 2020-01-31 00:30:00 Gregory Bryan (CPK) Jaqueline TROPONIN, I-STAT 2020-01-31 00:30:00 Gregory Bryan M ethodist Jaqueline HC COMPLETE BLD COUNT 2020-01-31 00:30:00 Gregory Bryan W/AUTO DIFF Jaqueline AMYLASE LEVEL 2020-01-31 00:30:00 Gregory Bryan Nv thodist Jaqueline LIPASE LEVEL 2020-01-31 00:30:00 Gregory Bryan Nv thodist Jaqueline ESTIMATED GFR 2020-01-31 00:30:00 Gregory Bryan Me thodist Jaqueline ECG ED PRELIMINARY 2020-01-31 00:28:05 TessGregory Ceasar Albrecht INTERPRETATION Jaqueline ECG 12-LEAD 2020-01-31 00:21:47 BryanGregory perez Me thodist Jaqueline URINALYSIS 2020-01-09 16:59:00 Omar Fernandezael Shad [place] Me thodist HCG QUALITATIVE, URINE 2020-01-09 16:59:00 Krishan Fernandez ston Religious SCREEN STREP SCREEN CULTURE 2020-01-09 15:59:00 Krishan Fernandez on Religious INFLUENZA ANTIGEN 2020-01-09 15:49:00 Krishan Fernandez GROUP A STREP, RAPID 2020-01-09 15:49:00 Krishan Fernandez on Religious ANTIGEN HC COMPLETE BLD COUNT 2020-01-09 15:47:00 Krishan Fernandez Religious W/AUTO DIFF COMPREHENSIVE METABOLIC 2020-01-09 15:47:00 Krishan Fernandez [place] Religious PANEL AMYLASE LEVEL 2020-01-09 15:47:00 Krishan Fernandez Me thodist ESTIMATED GFR 2020-01-09 15:47:00 Krishan Fernandez Me thodist XR FOOT 3+ VW RIGHT 2019-12-24 21:48:51 Jaqueline Mario Plan of Care Planned Activity Planned Date Details Comments Source Future Scheduled 2020-06-11 INFLUENZA VACCINE [place] [facility] Test 00:00:00 [code = INFLUENZA VACCINE] Future Scheduled 1998 Screening for [place] Me thodist Test 00:00:00 malignant neoplasm of cervix (procedure) [code = 428685222] Encounters Start End Encounter Admission Attending Care Care Encounter Source Date/Time Date/Time Type Type Clinicians Facility Department ID 2020-01-31 2020-01-31 Emergency TESS [facility] [id number] [place] 00:00:00 00:00:[address] 2020-01-09 2020-01-09 Emergency [facility] [id number] [place] 00:00:00 00:00:00 KRISHAN Rios [facility] 2019-12-24 2019-12-24 Emergency [place] [id number] [place] 00:00:00 00:00:00 JAQUELINE Lara [facility] 2019-11-09 2019-11-09 Emergency E [facility] [address] [facility] 20:17:00 20:17:00 melanie Riddle [facility] l [facility] Results Test Description Test Time Test Comments Results Result Comments Source ECG 12 lead 2020-02-01 08:23:38 Test Item Value Reference Range Interpretation Comme nts Ventricular rate (test code = 253) 91 Atrial rate (test code = 255) 91 WA interval (test code = 266) 118 QRSD interval (test code = 260) 50 QT interval (test code = 264) 348 QTC interval (test code = 265) 428 P axis 1 (test code = 267) 84 QRS axis 1 (test code = 268) 59 T wave axis (test code = 270) 55 EKG impression (test code = 273) Normal sinus rhythm with sinus arrhythmia-Right atrial enlargement-Septal infarct , age undetermined-Abnormal ECG-No previous ECGs available- [facility] MethodistLipase [id number] 03:31:28 Test Item Value Reference Range Interpretation Comments Lipase (test code = 3040-3) 25 U/L 13-60 [facility] MethodistCT Abdomen Pelvis W [id number] 02:42:54Hm Interface, Radiology Results - 01/31/2020 2:46 AM CDTEXAM: CT ABDOMEN PELVIS W CONTRASTCLINICAL HISTORY: epigastric and lower chest pain possible pancreatitisTECHNIQUE: Multidetector CT of the abdomen and pelvis was performed following intravenous administration of iodinated contrast with multiplanar reformats.CT scans are performed using radiation dose reduction techniques (iterative reconstruction and/or automated exposure control). Technical factors are evaluated and adjusted to ensure appropriate moderation of exposure. Automated dose management technology is applied to adjust radiation exposure while achieving a diagnostic quality image.COMPARISON: None FINDINGS:Lung bases: Unremarkable.Liver: Hepatomegaly and moderate hepatic steatosis. No evidence for suspicious focal hepatic lesion.Gallbladder and biliary: The gallbladder is absent. Clips within the gallbladder fossa. Dilatation of the common duct without an obstructing choledocholithiasis is most consistent with a reservoir effect. Pancreas: No focal pancreatic lesion identified. No pancreatic duct dilatation.Spleen: Unremarkable.Gastrointestinal: Stomach is unremarkable in appearance. Large and small bowel are normal in caliber. Patient is status post appendectomy.Peritoneum: No ascites or free air.Adrenals: Unr emarkable. Kidneys and ureters: There is no evidence for large irregular renal mass, obstructing calculi, hydronephrosis, or hydroureter.Urinary bladder: Incompletely distended bladder with mild muralthickening; correlate findings with urinalysis to exclude concurrent cystitis. Reproductive organs:Uterus is unremarkable in appearance per CT.Lymph nodes: No enlarged lymph nodes in the abdomen or pelvis.Vascular: Unremarkable.Abdominal wall: Unremarkable.Bones: Couple remote, healed right lateral rib fractures noted. No acute osseous abnormality identified.IMPRESSION:1.Incompletely distended bladder with mild mural thickening; correlate findings with urinalysis to exclude concurrent cystitis. Otherwise no CT evidence for acute abdominopelvic process.2.Hepatomegaly and moderate hepatic steatosis.3.Status post cholecystectomy. Dilatation of the common duct without an obstructing choledocholithiasis is most consistent with a reservoir effect.4.Additional chronic findings as detailed above.[facility]-[id number] [facility]CT Angiogram Pe [id number] 02:42:10Hm Interface, Radiology Results 01/31/2020 2:45 AM CDTCT ANGIOGRAM PE CHESTCLINICAL INDICATION: PE suspected high pretest probCOMPARISON: None.TECHNIQUE: CT angiographic images of the chest were obtained during intravenous administration of iodinated contrast. Computerized, reformattedimages and 3-D MIP images were obtained and archived (per CT pulmonary embolism protocol).CT scans are performed using radiation dose reduction techniques (iterative reconstruction and/or automated exposure control). Technical factors are evaluated and adjusted to ensure appropriate moderation of exposure. Automated dose management technology is applied to adjust radiation exposure while achieving a diagnostic quality image. IMPRESSION:Lungs and large airways: No consolidations, effusions, or pneumo thorax. Trachea and mainstem bronchi are patent.Heart and pericardium: Heart size is normal. Trace pericardial effusion. Mediastinum and roxann: Minimal residual thymic tissue is seen of the anterior mediastinum.Lymph nodes: No pathological adenopathy in the roxann, axilla or mediastinum.Pulmonary arteries: No main branch, saddle region, or segmental pulmonary embolus is seen. Vasculature: No aortic aneurysm, dissection, or pseudoaneurysm.Upper abdomen: No focal abnormality detected with limited evaluation. Bones: Old right-sided rib fractures. No acute osseous abnormalities.Soft tissues: Unremar kable.Summary:1. Negative CTA examination for pulmonary embolism.2. Lungs without acute airspace disease. [facility]-[id number] MethodistCreatine kinase, total (CPK)2020-01-31 01:10:25 Test Item Value Reference Range Interpretation Comments Creatine kinase (test code = 2157-6) 36 U/L 30-190 [place] MethodisthCG qualitative, urine [id number] 01:09:54 Test Item Value Reference Range Interpretation Comments hCG qualitative, Negative Sensitivity of HCG test: urine (test code = 25 mIU/mL Negative test 6-3) results in gary ents suspected to be should be retes mariela with a sample obtained 48-72 hours later, or by performing a qu antitative assay. [place] [id number] 01:09:54 Test Item Value Reference Range Interpretation Comments Glucose, UA (test code = Negative Negative 60518-9) Bilirubin, UA (test code = Positive@UBIL Negative A 5770-3) Ketones, UA (test code = 2+ Negative A 2514-8) Specific gravity, UA (test code 1.020 1.001-1.035 = 5811-5) Blood, UA (test code = 5794-3) Negative Negative pH, UA (test code = 5803-2) 6.5 5.0-8.5 Protein, UA (test code = Trace Negative A 39905-4) Urobilinogen, UA (test code = <2.0 <2.0 76979-7) Nitrite, UA (test code = Negative Negative 5802-4) Leukocyte esterase, UA (test Small Negative A code = 5799-2) Color, UA (test code = 5778-6) Dark Yellow Appearance, UA (test code = Cloudy 5767-9) Lab Interpretation (test code = Abnormal 94378-5) [facility] MethodistComprehensive metabolic [id number] 01:00:14 Test Item Value Reference Range Interpretation Comments Sodium (test code = 2951-2) 135 128- 145 mEq/L Potassium (test code = 2823-3) 5.1 3.6- 5.1 mEq/L CO2 (test code = 2027-9) 32 18- 33 mEq/L Chloride (test code = 2075-0) 105 98- 108 mEq/L Glucose (test code = 2345-7) 136 mg/dL 73-118 H Calcium (test code = 78546-0) 10.1 mg/dL 8-10.3 BUN (test code = 3094-0) 11 mg/dL 7-22 Creatinine (test code = 2160-0) 0.9 mg/dL 0.5-0.9 Alkaline phosphatase (test code = 228 U/L 42-141 H 6768-6) ALT (test code = 1742-6) 60 U/L 10-47 H AST (test code = 1920-8) 134 U/L 11-38 H Total bilirubin (test code = 1.2 mg/dL 0.2-1.6 1974-2) Albumin (test code = 1751-7) 4.0 g/dL 3.3-5.5 Protein (test code = 2885-2) 8.3 g/dL 6.4-8.1 H Anion gap (test code = 32249-7) -2@ANIO 7- 15 mEq/L L A/G ratio (test code = 1759-0) 0.9 0.7-3.8 Lab Interpretation (test code = Abnormal 43263-4) [facility] with platelet and [id number] 01:00:14 Test Item Value Reference Range Interpretation Comments WBC (test code = 15906-3) 6.35 4.50- 11.00 k/uL RBC (test code = 88191-6) 4.45 m/uL 4.2-5.5 HGB (test code = 718-7) 14.0 g/dL 12-16 HCT (test code = 4544-3) 42.4 % 37-47 MCV (test code = 787-2) 95.3 fL 82-100 MCH (test code = 785-6) 31.5 pg 27-34 MCHC (test code = 786-4) 33.0 g/dL 31-37 RDW - SD (test code = 94959-8) 43.4 fL 37-55 MPV (test code = 83694-7) 10.1 fL 8.8-13.2 Platelet count (test code = 252 150- 400 k/uL 36478-5) Neutrophils (test code = 32996-4) 79.1 % 39-69 H Lymphocytes (test code = 36568-4) 13.2 % 25-45 L Monocytes (test code = 97060-8) 6.3 % 0-10 Eosinophils (test code = 05688-4) 0.8 % 0-5 Basophils (test code = 45308-2) 0.6 % 0-1 Lab Interpretation (test code = Abnormal 25943-4) [place] MethodistLactic acid, [id number] 01:00:14 Test Item Value Reference Range Interpretation Comments Lactic acid, I-Stat (test code = 1.7 mmol/L 0.5-2.2 44510-4) [place] MethodistTroponin, [id number] 01:00:14 Test Item Value Reference Range Interpretation Comments Troponin, I-Stat 0.00 ng/mL 0-0.08 0.09 - 1.49 ng/ml (test code = 2359) May indic ate increased risk of acute coronary syndro me. >=1.5 ng/ml Consistent with acute myocardial infar ction. The diagnostic valu e of a single normal o r non-diagnostic result is questionable. Serial samples at 2-6 hour intervalsare re quired to rule out acute myocardial injury. [place] MethodistEstimated [id number] 01:00:14 Test Item Value Reference Range Interpretation Comments Estimated GFR (test 79 mL/min/1.73 m2 Caterg ory Units code = 5488) InterpretationG 1 >=90 Normal or highG2 60-89 Mildly dcvavpilyE4n 45-59 Mildly to mode rately pxdwirlxuM9u 30-44 Moderately to severely decreasedG4 15-29 Severely decre asedG5 <15 Kidn ey failureThe eGFR was calculated chago g the Chronic Kidney Disease Epidemiology Co llaboration (CKD-EPI) equat ion. Interpretation is based on recommendations of the National Kidney Foundation-Kidn ey Disease Outcomes Qualit y Initiative (NKF-KDOQI) pub lished in 2014. [place] MethodistAmylase [id number] 00:58:16 Test Item Value Reference Range Interpretation Comments Amylase (test code = 1798-8) 31 U/L 14-97 [place] MethodistECG ED Preliminary Interpretation - Not an [id number] 00:28:05 Test Item Value Reference Range Interpretation Comments CHECO (test code = CHECO) Gregory Bryan DO 01/31/2020 3:05 [facility] ED Preliminary Interpretation - Not an OrderPerformed by: Gregory Bryan DOAuthorized by: Gregory Bryan DO ECG reviewed by ED Physician in the absence of a knife sharpener: yes Interpretation: Interpretation: abnormal Rate: ECG rate: 91 ECG rate assessment: normal Rhythm: Rhythm: sinus rhythm Ectopy: Ectopy: none QRS: QRS axis: Normal QRS intervals: NormalConduction: Conduction: normal ST segments: ST segments: NormalT waves: T waves: normal Other findings: Other findings: COLTEN Lab Interpretation Abnormal (test code = 41277-1) Ceasar Peñatre screen [id number] 08:01:34 Test Item Value Reference Range Interpretation Comments Strep screen No beta hemolytic Specimen culture Streptococci InformationSpec imen isolate (test isolated Source: Throat Specimen code = 2246) Site: Not other giraldo specified [facility] MethodistGroup A strep, rapid [id number] 03:09:39 Test Item Value Reference Interpretation Comments Range Group A Negative for Group Specimen strep, rapid A Streptococcus InformationS pecimen antigen antigen. Source: ThroatS pecimen result (test Site: Not other giraldo code = specified 1262462) [place] MethodistInfluenza [id number] 16:15:02 Test Item Value Reference Range Interpretation Comments Influenza Negative for Specimen antigen (test Influenza A/B InformationSp ecimen code = 1604) antigen. Source: NaresSp ecimen Site: Other- De tailed Description Req uired Ceasar MethodistXR Foot 3+ Vw [id number] 21:50:16Hm Interface, Radiology Results Incoming - 12/24/2019 9:53 PM CSTEXAMINATION: XR FOOT 3 VW RIGHTCL INICAL HISTORY: fallCOMPARISON: None.IMPRESSION:No acute osseous abnormality or malalignment is noted.[id number] Albrecht
[2020-05-24] MEDS ORDERED: ONDANSETRON 4 MG/2 ML VIAL ONE (05:43)
[2020-05-24] MEDS ORDERED: MORPHINE 4 MG/ML SYR ONE ×4 (05:43→17:06)
[2020-05-24 05:58] LABS: Absolute Lymphocytes (CBC) 0.3 K/uL (0.7-4.9); Basophils % 0.3 % (0-1.3); Lymphocytes % 9.1 % (15.3-44.8); RBC Red Blood Cell Count 4.19 M/uL (3.86-4.86)
[2020-05-24 06:10] LABS: Albumin 4.1 g/dL (3.4-5.0); Bilirubin Direct 0.9 mg/dL (0-0.2); Bilirubin Total 1.8 mg/dL (0.2-1.0); Magnesium 1.9 mg/dL (1.8-2.4); Potassium 4.5 mmol/L (3.5-5.1); Protein, Total 8.4 g/dL (6.4-8.2); Troponin (Emerg Dept Use Only) 0.07 ng/mL (0.0-0.045)
[2020-05-24] MEDS ORDERED: LORazepam 2 MG/ML VIAL ONE (06:32)
[2020-05-24] MEDS ORDERED: NA CHLORIDE 0.9% 1,000 ML ONE ×3 (06:32→14:00)
[2020-05-24] MEDS ORDERED: PROMETHAZINE INJ 25 MG/ML AMP ONE ×3 (06:32→17:06)
--- NOTE | 2020-05-24 06:49 | ER ---
Nurse's Notes [facility] Name: Suzette Bush Age: 44 yrs Sex: Female : 1975 Arrival Date: 05/24/2020 Time: 05:22 Bed 2 Private MD: Diagnosis: Chest pain, unspecified-elevated troponin;Acute pancreatitis;Abnormal results of liver function studies;Dehydration Presentation: 05/24 05:20 Chief complaint: EMS states: "the pt is reporting chest pain that started yesterday and jd3 has gotten worse. the is now reporting nausea and vomiting along with the chest pain.". Coronavirus screen: Proceed with normal triage. Ebola Screen: Patient negative for fever greater than or equal to 101.5 degrees Fahrenheit, and additional compatible Ebola Virus Disease symptoms. Initial Sepsis Screen: Does the patient meet any 2 criteria? No. Patient's initial sepsis screen is negative. Does the patient have a suspected source of infection? No. Patient's initial sepsis screen is negative. Risk Assessment: Do you want to hurt yourself or someone else? Patient reports no desire to harm self or others. Onset of symptoms was May 23, 2020. 05:20 Method Of Arrival: EMS: [facility] jd3 05:20 Acuity: MARIA ELENA 3 jd3 Historical: - Allergies: 05:43 No Known Allergies; jd3 - Home Meds: 05:43 None [Active]; jd3 - PMHx: 05:43 Anxiety; Pancreatitis; jd3 - PSHx: 05:43 Cholecystectomy; jd3 - Immunization history:: Adult Immunizations up to date. - Social history:: Smoking status: Patient reports the use of cigarette tobacco products, denies chronic smoking, but will smoke occasionally. Screenin:45 Abuse screen: Denies threats or abuse. Nutritional screening: No deficits noted. jd3 Tuberculosis screening: No symptoms or risk factors identified. Fall Risk Ambulatory Aid- None/Bed Rest/Nurse Assist (0 pts). Gait- Normal/Bed Rest/Wheelchair (0 pts) Mental Status- Oriented to own ability (0 pts). Total Henao Fall Scale indicates No Risk (0-24 pts). Assessment: 05:44 General: Appears uncomfortable, Behavior is cooperative, appropriate for age, anxious, jd3 restless. Pain: Complains of pain in chest Pain does not radiate. Quality of pain is described as sharp, stabbing, Pain began 1 day ago. Neuro: Level of Consciousness is awake, alert, obeys commands, Oriented to person, place, time, situation. Cardiovascular: Reports chest pain, Capillary refill < 3 seconds Patient's skin is warm and dry. Rhythm is sinus tachycardia. Respiratory: Airway is patent Respiratory effort is even, unlabored, Respiratory pattern is regular, symmetrical, Denies cough, shortness of breath. GI: Abdomen is flat, non-distended, Abd is soft X 4 quads Abdomen is tender to palpation X 4 quads. Reports nausea, vomiting. : No signs and/or symptoms were reported regarding the genitourinary system. EENT: No signs and/or symptoms were reported regarding the EENT system. Derm: Skin is intact, Skin is dry, Skin is normal, Skin temperature is warm. Musculoskeletal: Circulation, motion, and sensation intact. Range of motion: intact in all extremities. 06:40 Reassessment: No changes from previously documented assessment. Patient and/or family jd3 updated on plan of care and expected duration. Pain level reassessed. Patient is alert, oriented x 3, equal unlabored respirations, skin warm/dry/pink. 08:00 Reassessment: Asked Toshia HEIN what the POC is for the pt. Stated that the pt would be sv an admission. Waiting on admission orders. 11:18 Reassessment: [facility] texted Dr Domingo to see if he was taking over care for the sv pt. He stated he was. I informed him that we need admission orders for the pt. Informed him that pt is requesting pain meds. He stated he would send down Mohan AMADOR to assess the pt. 11:38 Reassessment: Patient appears in no apparent distress at this time. No changes from sv previously documented assessment. Patient and/or family updated on plan of care and expected duration. Pain level reassessed. Patient is alert, oriented x 3, equal unlabored respirations, skin warm/dry/pink. 13:00 Reassessment: Patient appears in no apparent distress at this time. Patient and/or sv family updated on plan of care and expected duration. Pain level reassessed. Patient is alert, oriented x 3, equal unlabored respirations, skin warm/dry/pink. 14:20 Reassessment: Patient appears in no apparent distress at this time. No changes from sv previously documented assessment. Patient and/or family updated on plan of care and expected duration. Pain level reassessed. Patient is alert, oriented x 3, equal unlabored respirations, skin warm/dry/pink. Vital Signs: 05:43 BP 158 / 111; Pulse 107; Resp 19 S; Temp 96.7(A); Pulse Ox 99% on R/A; Weight 43.09 kg jd3 (R); Height 5 ft. 3 in. (160.02 cm) (R); Pain 10/10; 07:00 BP 151 / 105; Pulse 96; Resp 23; Pulse Ox 100% on R/A; sv 08:00 BP 163 / 100; Pulse 85; Resp 20; Pulse Ox 100% on R/A; sv 09:00 BP 168 / 104; Pulse 82; Resp 28; Pulse Ox 100% on R/A; sv 10:00 BP 148 / 116; Pulse 111; Resp 18; Pulse Ox 100% on R/A; sv 11:00 BP 158 / 105; Pulse 83; Resp 18; Pulse Ox 100% on R/A; sv 12:16 BP 152 / 104; Pulse 89; Resp 21; Pulse Ox 99% on R/A; sv 14:00 BP 152 / 104; Pulse 83; Resp 17; Pulse Ox 100% on R/A; sv 15:00 BP 154 / 96; Pulse 81; Resp 21; Pulse Ox 99% ; sv 05:43 Body Mass Index 16.83 (43.09 kg, 160.02 cm) jd3 ED Course: 05:22 Patient arrived in ED. cl3 05:30 Inserted saline lock: 20 gauge in right antecubital area, using aseptic technique. jd3 Blood collected. 05:31 Arturo Diez, RN is Primary Nurse. jd3 05:42 Triage completed. jd3 05:44 Arm band placed on. jd3 05:45 Patient has correct armband on for positive identification. Bed in low position. Call jd3 light in reach. Side rails up X 1. manager monitoring on. Pulse ox on. NIBP on. 05:46 Patient maintains SpO2 saturation greater than 95% on room air. jd3 05:58 XRAY Chest (1 view) In Process Unspecified. EDMS 05:59 Toshia Garcia FNP-C is PHCP. kb 05:59 Francis Crum MD is Attending Physician. kb 06:48 Declan Johnson MD is Hospitalizing Provider. kb 07:[address] via stretcher. sv 07:30 CT Abd/Pelvis - IV Contrast Only In Process Unspecified. EDMS 07:35 Suzette Wheat, RN is Primary Nurse. sv 14:20 No provider procedures requiring assistance completed. Patient admitted, IV remains in sv place. intact. Administered Medications: 05:39 Drug: morphine 4 mg Route: IVP; Site: right antecubital; jd3 06:30 Follow up: Response: No adverse reaction; RASS: Restless (+1) jd3 05:39 Drug: Zofran (Ondansetron) 4 mg Route: IVP; Site: right antecubital; jd3 06:30 Follow up: Response: No adverse reaction jd3 06:28 Drug: Ativan 0.5 mg Route: IVP; Site: right antecubital; rr5 07:00 Follow up: Response: No adverse reaction jd3 06:31 Drug: Phenergan 12.5 mg Route: IVP; Site: right antecubital; rr5 07:00 Follow up: Response: No adverse reaction jd3 06:32 Drug: NS 0.9% 1000 ml Route: IV; Rate: 1000 ml; Site: right antecubital; rr5 09:00 Follow up: Response: No adverse reaction; IV Status: Completed infusion; IV Intake: sv 1000ml 07:58 Drug: NS 0.9% 1000 ml Route: IV; Rate: 1000 ml; Site: right antecubital; sv 09:00 Follow up: Response: No adverse reaction; IV Status: Completed infusion; IV Intake: sv 1000ml 07:58 Drug: morphine 4 mg Route: IVP; Site: right antecubital; sv 08:30 Follow up: Response: No adverse reaction; RASS: Light sedation (-2) sv 11:38 Drug: Phenergan 12.5 mg Route: IVP; Site: right antecubital; sv 12:00 Follow up: Response: No adverse reaction; Marked relief of symptoms sv 11:40 Drug: morphine 4 mg {Note: rass0.} Route: IVP; Site: right antecubital; sv 12:00 Follow up: Response: No adverse reaction; Pain is decreased; RASS: Light sedation (-2) sv Intake: 09:00 IV: 1000ml; Total: 1000ml. sv 09:00 IV: 1000ml; Total: 2000ml. sv Outcome: 06:48 Decision to Hospitalize by Provider. kb 14:20 Admitted to ER Hold. [facility]. sv 14:20 Condition: stable 14:20 Instructed on the need for admit. 21:04 Patient left the ED. mg2 Signatures: Dispatcher [employer] EDMS Toshia Garcia, VICTORIA-C [employer] CONSULTANT-Suzette Arreguin, RN RN sv Arturo Diez RN RN jd3 Danilo Robles RN RN mg2 Rashel Adams RN RN rr5 Kayla Abarca cl3 Corrections: (The following items were deleted from the chart) 05:44 05:43 BP 158 / 11; Pulse 107bpm; Resp 19bpm; Spontaneous; Pulse Ox 99% RA; Temp 96.7F jd3 Axillary; 43.09 kg Reported; Height 5 ft. 3 in. Reported; BMI: 16.8; Pain 10/10; jd3
--- NOTE | 2020-05-24 06:49 | EDPHYS ---
Physician Documentation [facility] Name: Suzette Bush Age: 44 yrs Sex: Female : 1975 Arrival Date: 05/24/2020 Time: 05:22 Bed 2 Private MD: ED Physician Francis Crum HPI: 05/24 06:06 This 44 yrs old Female presents to ER via EMS with complaints of Chest Pain, kb Cough. 06:06 The patient or guardian reports chest pain that is located primarily in the epigastric kb area. Onset: 2 day(s) ago. The pain does not radiate. Associated signs and symptoms: Pertinent positives: abdominal pain, nausea, vomiting, Pertinent negatives: cough, diaphoresis, dizziness, headache, lower extremity pain, lower extremity swelling, lightheadedness, near syncope, palpitations, recent travel, shortness of breath, syncope. The chest pain is described as aching. Duration: The patient or guardian reports a single episode, that is still ongoing, and unchanged. Modifying factors: The symptoms are alleviated by nothing. the symptoms are aggravated by nothing. Severity of pain: At its worst the pain was mild moderate in the emergency department the pain is unchanged. The patient has experienced a previous episode. The patient has not recently seen a physician. Pt reports chest pain (epigastic area) that started 2 or 3 days ago. States vomiting started last night and she hasn't been able to tolerate anything since then. Reports similar symptoms in the past and was diagnosed with gastritis at the time. Historical: - Allergies: 05:43 No Known Allergies; jd3 - Home Meds: 05:43 None [Active]; jd3 - PMHx: 05:43 Anxiety; Pancreatitis; jd3 - PSHx: 05:43 Cholecystectomy; jd3 - Immunization history:: Adult Immunizations up to date. - Social history:: Smoking status: Patient reports the use of cigarette tobacco products, denies chronic smoking, but will smoke occasionally. ROS: 06:05 Constitutional: Negative for fever, chills, and weight loss, Respiratory: Negative for kb shortness of breath, cough, wheezing, and pleuritic chest pain, Back: Negative for injury and pain, MS/Extremity: Negative for injury and deformity, Skin: Negative for injury, rash, and discoloration, Neuro: Negative for headache, weakness, numbness, tingling, and seizure. 06:05 Cardiovascular: Positive for chest pain, Negative for edema, orthopnea, palpitations, paroxysmal nocturnal dyspnea. 06:05 Abdomen/GI: Positive for abdominal pain, nausea and vomiting, Negative for diarrhea, constipation. Exam: 06:05 Constitutional: This is a well developed, well nourished patient who is awake, alert, kb and in no acute distress. Head/Face: Normocephalic, atraumatic. Chest/axilla: Normal chest wall appearance and motion. Nontender with no deformity. No lesions are appreciated. Cardiovascular: Regular rate and rhythm with a normal S1 and S2. No gallops, murmurs, or rubs. Normal PMI, no JVD. No pulse deficits. Respiratory: Lungs have equal breath sounds bilaterally, clear to auscultation and percussion. No rales, rhonchi or wheezes noted. No increased work of breathing, no retractions or nasal flaring. Back: No spinal tenderness. No costovertebral tenderness. Full range of motion. Skin: Warm, dry with normal turgor. Normal color with no rashes, no lesions, and no evidence of cellulitis. MS/ Extremity: Pulses equal, no cyanosis. Neurovascular intact. Full, normal range of motion. Neuro: Awake and alert, GCS 15, oriented to person, place, time, and situation. Cranial nerves II-XII grossly intact. Motor strength 5/5 in all extremities. Sensory grossly intact. Cerebellar exam normal. Normal gait. 06:05 Abdomen/GI: Inspection: abdomen appears normal, Bowel sounds: normal, in all quadrants, Palpation: soft, in all quadrants, mild abdominal tenderness, in all quadrants. 06:08 ECG was reviewed by the Attending Physician. Vital Signs: 05:43 BP 158 / 111; Pulse 107; Resp 19 S; Temp 96.7(A); Pulse Ox 99% on R/A; Weight 43.09 kg jd3 (R); Height 5 ft. 3 in. (160.02 cm) (R); Pain 10/10; 07:00 BP 151 / 105; Pulse 96; Resp 23; Pulse Ox 100% on R/A; sv 08:00 BP 163 / 100; Pulse 85; Resp 20; Pulse Ox 100% on R/A; sv 09:00 BP 168 / 104; Pulse 82; Resp 28; Pulse Ox 100% on R/A; sv 10:00 BP 148 / 116; Pulse 111; Resp 18; Pulse Ox 100% on R/A; sv 11:00 BP 158 / 105; Pulse 83; Resp 18; Pulse Ox 100% on R/A; sv 12:16 BP 152 / 104; Pulse 89; Resp 21; Pulse Ox 99% on R/A; sv 14:00 BP 152 / 104; Pulse 83; Resp 17; Pulse Ox 100% on R/A; sv 15:00 BP 154 / 96; Pulse 81; Resp 21; Pulse Ox 99% ; sv 05:43 Body Mass Index 16.83 (43.09 kg, 160.02 cm) jd3 MDM: 05:59 Patient medically screened. kb 06:05 Data reviewed: vital signs, nurses notes. Data interpreted: Pulse oximetry: on room air kb is 99 %. Interpretation: normal. 06:47 Counseling: I had a detailed discussion with the patient and/or guardian regarding: the kb historical points, exam findings, and any diagnostic results supporting the discharge/admit diagnosis, lab results, radiology results, the need for further work-up and treatment in the hospital. Physician consultation: Declan Johnson MD was contacted at 06:47, regarding admission, to the telemetry unit. patient's condition, and will see patient in ED. 06:55 ED course: Pt reports she developed pancreatitis after cholecystectomy. States it hurts kb at times when she eats bad, but this time was worse than others. States she ate bad last week. . 05/24 05:32 Order name: Basic Metabolic Panel; Complete Time: 06:17 [facility] 05/24 05:32 Order name: CBC with Diff; Complete Time: 07:09 d3 05/24 05:32 Order name: LFT's; Complete Time: 06:17 jd3 05/24 05:32 Order name: Magnesium; Complete Time: 06:17 jd3 05/24 05:32 Order name: NT PRO-BNP; Complete Time: 06:17 jd3 05/24 05:32 Order name: PT-INR; Complete Time: 06:08 jd3 05/24 05:32 Order name: Troponin (emerg Dept Use Only); Complete Time: 06:17 jd3 05/24 05:32 Order name: XRAY Chest (1 view); Complete Time: 08:33 jd3 05/24 06:04 Order name: Lipase; Complete Time: 06:22 kb 05/24 06:42 Order name: CT Abd/Pelvis - IV Contrast Only; Complete Time: 08:30 kb 05/24 06:42 Order name: Lipid Profile; Complete Time: 07:32 kb 05/24 07:08 Order name: Manual Differential; Complete Time: 07:09 EDMS 05/24 12:40 Order name: COVID-19 kb 05/24 14:30 Order name: Lipase; Complete Time: 14:32 EDMS 05/24 05:32 Order name: EKG; Complete Time: 05:33 jd3 05/24 05:32 Order name: Cardiac monitoring; Complete Time: 05:33 jd3 05/24 05:32 Order name: EKG - Nurse/Tech; Complete Time: 05:39 jd3 05/24 05:32 Order name: IV Saline Lock; Complete Time: 05:33 jd3 05/24 05:32 Order name: Labs collected and sent; Complete Time: 05:33 jd3 05/24 05:32 Order name: O2 Per Protocol; Complete Time: 05:33 jd3 05/24 13:15 Order name: NPO; Complete Time: 15:23 EDMS 05/24 05:32 Order name: O2 Sat Monitoring; Complete Time: 05:33 jd3 EC:08 Rate is 104 beats/min. Rhythm is regular. QRS [place] is Normal. SD interval is normal at kb 126 msec. QRS interval is normal at 66 msec. QT interval is normal at 320 msec. Administered Medications: 05:39 Drug: morphine 4 mg Route: IVP; Site: right antecubital; jd3 06:30 Follow up: Response: No adverse reaction; RASS: Restless (+1) jd3 05:39 Drug: Zofran (Ondansetron) 4 mg Route: IVP; Site: right antecubital; jd3 06:30 Follow up: Response: No adverse reaction jd3 06:28 Drug: Ativan 0.5 mg Route: IVP; Site: right antecubital; rr5 07:00 Follow up: Response: No adverse reaction jd3 06:31 Drug: Phenergan 12.5 mg Route: IVP; Site: right antecubital; rr5 07:00 Follow up: Response: No adverse reaction jd3 06:32 Drug: NS 0.9% 1000 ml Route: IV; Rate: 1000 ml; Site: right antecubital; rr5 09:00 Follow up: Response: No adverse reaction; IV Status: Completed infusion; IV Intake: sv 1000ml 07:58 Drug: NS 0.9% 1000 ml Route: IV; Rate: 1000 ml; Site: right antecubital; sv 09:00 Follow up: Response: No adverse reaction; IV Status: Completed infusion; IV Intake: sv 1000ml 07:58 Drug: morphine 4 mg Route: IVP; Site: right antecubital; sv 08:30 Follow up: Response: No adverse reaction; RASS: Light sedation (-2) sv 11:38 Drug: Phenergan 12.5 mg Route: IVP; Site: right antecubital; sv 12:00 Follow up: Response: No adverse reaction; Marked relief of symptoms sv 11:40 Drug: morphine 4 mg {Note: rass0.} Route: IVP; Site: right antecubital; sv 12:00 Follow up: Response: No adverse reaction; Pain is decreased; RASS: Light sedation (-2) sv Disposition: 05/25 02:46 Co-signature as Attending Physician, Francis Crum MD. [facility] Disposition: 05/24/20 06:48 Hospitalization ordered by Declan Johnson for Inpatient Admission. Preliminary diagnosis are Chest pain, unspecified - elevated troponin, Acute pancreatitis, Abnormal results of liver function studies, Dehydration. - Bed requested for Telemetry/MedSurg (Inpatient). - Status is Inpatient Admission. mg2 - Condition is Stable. - Problem is new. - Symptoms are unchanged. Signatures: Dispatcher [employer] [facility] Toshia Gracia, VICTORIA-Willow KESSLER-Suzette Arreguin RN RN sv Garcia, Cindy, RN RN cg Arturo Diez RN RN jDanilo Land RN RN mg2 Rashel Adams RN RN rr5 Francis Crum MD MD 7 Corrections: (The following items were deleted from the chart) 05/24 14:20 06:48 Hospitalization Ordered by Declan Johnson MD for Inpatient Admission. Preliminary sv diagnosis is Chest pain, unspecified - elevated troponin; Acute pancreatitis; Abnormal results of liver function studies; Dehydration. Bed requested for Telemetry/MedSurg (Inpatient). Status is Inpatient Admission. Condition is Stable. Problem is new. Symptoms are unchanged. kb 20:41 14:20 05/24/2020 06:48 Hospitalization Ordered by Declan Johnson MD for Inpatient cg Admission. Preliminary diagnosis is Chest pain, unspecified - elevated troponin; Acute pancreatitis; Abnormal results of liver function studies; Dehydration. Bed requested for [facility] ER HOLD. Status is Inpatient Admission. Condition is Stable. Problem is new. Symptoms are unchanged. sv 21:04 20:41 05/24/2020 06:48 Hospitalization Ordered by Declan Johnson MD for Inpatient mg2 Admission. Preliminary diagnosis is Chest pain, unspecified - elevated troponin; Acute pancreatitis; Abnormal results of liver function studies; Dehydration. Bed requested for Telemetry/MedSurg (Inpatient). Status is Inpatient Admission. Condition is Stable. Problem is new. Symptoms are unchanged. cg
[2020-05-24 07:07] LABS: Blood Morphology Comment NOT SEEN (NOT SEEN); Platelet Estimate ADEQ
--- NOTE | 2020-05-24 08:25 | RAD REPORT ---
EXAM DESCRIPTION: CTAbdomen Pelvis W Contrast - 05/24/2020 7:29 am CLINICAL HISTORY: Abdominal pain. ABD PAIN COMPARISON: Abdomen Pelvis W Contrast dated 05/07/2020 TECHNIQUE: Biphasic CT imaging of the abdomen and pelvis was performed with 100 ml non-ionic IV cont rast. All CT scans are performed using dose optimization technique as appropriate and may include automated exposure control or mA/KV adjustment according to patient size. FINDINGS: The lung bases are clear. The liver demonstrates advanced fatty infiltration. Cholecystectomy. Spleen, pancreas, adrenal glands and kidneys are within normal limits. No bowel obstruction, free air, free fluid or abscess. The appendix is normal. No evidence of signi ficant lymphadenopathy. No suspicious bony findings. IMPRESSION: No acute intra-abdominal or pelvic finding. Advanced fatty liver.
--- NOTE | 2020-05-24 08:32 | RAD REPORT ---
EXAM DESCRIPTION: RAD - Chest Single View - 05/24/2020 5:59 am CLINICAL HISTORY: CHEST PAIN Chest pain. COMPARISON: No comparisons FINDINGS: Portable technique limits examination quality. The lungs are grossly clear. The heart is normal in size. No displaced fractures. IMPRESSION: No acute intrathoracic process suspected.
[2020-05-24] MEDS: NA CHLORIDE 0.9% 1,000 ML IV SCH ×2 (13:00→22:02)
[2020-05-24] MEDS ORDERED: ACETAMINOPHEN 500 MG TAB PO PRN (13:07)
--- NOTE | 2020-05-24 13:23 | P.HP ---
Certification for Inpatient With expected LOS: >2 Midnights Patient will require the following post-hospital care: None Practitioner: I am a practitioner with admitting privileges, knowledge of patient current condition, hospital course, and medical plan of care. Services: Services provided to patient in accordance with Admission requirements found in Title 42 Section 412.3 of the Code of Federal Regulations <Liam Wiley - Last Filed: 05/24/20 13:28> Patient History Date of Service: 05/24/20 Primary Care Provider: [facility] Reason for admission: Acute Pancreatitis/Chest pain History of Present Illness: 44-year-old female with past medical history of alcohol abuse and pancreatitis presents to the emergency room complaining of chest pain and cough. Patient states that she did drink alcohol for the past 2 days. Woke up around 11:00 p.m. last night with nausea and has been vomiting since arrival to the ED. Patient states she has vomited probably 20 times. States that the chest pain she feels is epigastric centered mostly in the epigastric region and some in the mid chest. Denies radiation, shortness of breath, dyspnea on exertion. States that she has been coughing due to the nausea and vomiting. States that she has had pancreatitis in the past. In the emergency room patient's lab work show elevated liver enzymes with a total bili of 1.8, AST of 276, ALT of 148, alk-phos 317, Troponin slightly elevated at 0.7. CT of the abdomen pelvis shows prior cholecystectomy and a fatty liver. EKG unremarkable. On examination patient is calm. She is alert oriented x3. She is in no distress. She is complaining of feeling nauseous and wanting to vomit again. States that she needs better pain control and is asking for more Ativan and more morphine specifically. Patient admits to drinking alcohol over the weekend. Patient will be placed as an inpatient on further evaluated. Home medications list reviewed: Yes (none) - Past Medical/Surgical History Diabetic: No -: Pancreatitis Past Surgical History: Reviewed- Non-Contributory -: Cholecystectomy Psychosocial/ Personal History: Lives at home - Family History Family History: Reviewed- Non-Contributory - Social History Smoking Status: Current some day smoker Counseled patient to stop smoking for: more than 10 minutes Smoking therapy provided: No (Refused) Patient receptive to therapy: No Alcohol use: Yes CD- Drugs: No Caffeine use: Yes Place of Residence: Home <Liam Wiley - Last Filed: 05/24/20 13:28> Date of Service: 05/24/20 <Henrique Domingo - Last Filed: 05/24/20 19:05> Allergies No Known Allergies Allergy (Verified 05/24/20 07:35) Review of Systems General: Malaise, As per HPI Eyes: Unremarkable ENT: Unremarkable Respiratory: Cough Cardiovascular: Chest Pain (Epigastric) Gastrointestinal: Nausea, Vomiting Genitourinary: Unremarkable Musculoskeletal: Unremarkable Integumentary: Unremarkable Neurological: Unremarkable <Liam Wiley - Last Filed: 05/24/20 13:28> Physical Examination - Vital Signs Temperature: 96.7 F Blood Pressure: 152/104 Pulse: 89 Respirations: 21 Pulse Ox (%): 99 (RA) - Physical Exam General: Alert, In no apparent distress, Oriented x3 HEENT: Atraumatic, Normocephalic, PERRLA Neck: Supple, Other (Trachea midline) Respiratory: Clear to auscultation bilaterally, Normal air movement Cardiovascular: No edema, Normal pulses, Regular rate/rhythm, Normal S1 S2 Capillary refill: <2 Seconds Gastrointestinal: Normal bowel sounds, Soft and benign, Non-distended Musculoskeletal: No clubbing, No swelling, No contractures, No erythema Integumentary: No rashes, No breakdown, No significant lesion, No tenderness/swelling Neurological: Normal gait, Normal speech, Normal strength at 5/5 x4 extr, Normal tone - Studies Laboratory Data (last 24 hrs) 05/24/20 05:32: Triglycerides 106, Cholesterol 228 H, HDL Cholesterol 131 H, Cholesterol/HDL Ratio 1.74 05/24/20 05:32: Lipase 941 H 05/24/20 05:32: PT 11.8, INR 1.00 05/24/20 05:32: WBC 3.5 L, Hgb 13.6, Hct 41.0, Plt Count 169 05/24/20 05:32: Sodium 133 L, Potassium 4.5, BUN 8, Creatinine 0.88, Glucose 193 H, Magnesium 1.9, Total Bilirubin 1.8 H, AST 276 H, ALT 148 H, Alkaline Phosphatase 317 H <Dylan Wileyel - Last Filed: 05/24/20 13:28> - Studies Laboratory Data (last 24 hrs) 05/24/20 05:32: Triglycerides 106, Cholesterol 228 H, HDL Cholesterol 131 H, Cholesterol/HDL Ratio 1.74 05/24/20 05:32: Lipase 941 H 05/24/20 05:32: PT 11.8, INR 1.00 05/24/20 05:32: WBC 3.5 L, Hgb 13.6, Hct 41.0, Plt Count 169 05/24/20 05:32: Sodium 133 L, Potassium 4.5, BUN 8, Creatinine 0.88, Glucose 193 H, Magnesium 1.9, Total Bilirubin 1.8 H, AST 276 H, ALT 148 H, Alkaline Phosphatase 317 H <Henrique Domingo - Last Filed: 05/24/20 19:05> Assessment and Plan - Plan Impression: Acute pancreatitis with history of fatty liver and alcohol abuse: Abnormal cardiac enzymes: Alcohol abuse: Nicotine abuse without withdrawal: Plan: Acute pancreatitis with history of fatty liver and alcohol abuse: Patient has a history of fatty liver and continues consuming alcohol. ED lab showed elevated liver enzymes with a total bili of 1.8. Will keep patient NPO except for ice chips for now. Continue gentle IV hydration and pain control. Abnormal cardiac enzymes: Etiology unclear. Patient was complaining of chest pain on admission but states it is likely from a with 20 times she has vomited since last night. Describes a pain as a dull ache in the epigastric area. In the ED patient states she does not have this pain anymore once her vomiting was controlled. EKG was unremarkable. Will place on continuous telemetry. Will continue trending troponins. Will consider cardiology consult. Alcohol abuse: Despite known history of fatty liver patient continues drinking. States she drank over the weekend. Was counseled greater than 20 min. Nicotine abuse without withdrawal: Smokes approximately a quarter pack of cigarettes per day average. Refuses nicotine patch. Counseled greater than 20 min. Discharge Plan: Home Plan to discharge in: Greater than 2 days - Advance Directives Does patient have a Living Will: No Does patient have a Durable POA for Healthcare: No - Code Status/Comfort Care Code Status Assessed: Yes Time Spent Managing Pts Care (In Minutes): 55 <Liam Wiley - Last Filed: 05/24/20 13:28> - Plan Case discussed at length with physician music library assistant. Agree with evaluation, assessment and plan of care. Continue NPO. Continue aggressive IV fluids. Will monitor closely. <Henrique Domingo - Last Filed: 05/24/20 19:05>
[2020-05-24 16:43] VITALS: BMI 16.8
[2020-05-24] MEDS: PROMETHAZINE INJ 25 MG/ML AMP IV PRN ×2 (17:03→22:16)
[2020-05-24] MEDS: MORPHINE 4 MG/ML SYR IV PRN ×2 (17:03→23:42)
[2020-05-24] MEDS: ALPRAZOLAM 0.5 MG TABLET PO PRN (22:15)
[2020-05-25] MEDS: MORPHINE 4 MG/ML SYR IV PRN ×4 (05:41→20:36)
[2020-05-25] MEDS: NA CHLORIDE 0.9% 1,000 ML IV SCH ×3 (05:42→22:13)
[2020-05-25 05:51] LABS: Absolute Lymphocytes (CBC) 0.7 K/uL (0.7-4.9); Basophils % 0.6 % (0-1.3); Lymphocytes % 20.8 % (15.3-44.8); MPV 9.6 fL (7.6-11.3); RBC Red Blood Cell Count 3.58 M/uL (3.86-4.86)
[2020-05-25 06:01] LABS: ALT/SGPT 101 U/L (12-78); AST/SGOT 149 U/L (15-37); Albumin 3.1 g/dL (3.4-5.0); Alkaline Phosphatase 232 U/L (45-117); BUN Blood Urea Nitrogen 2 mg/dL (7-18); Bicarbonate 24 mmol/L (21-32); Glucose Level 95 mg/dL (74-106); Lipase 232 U/L (73-393); Magnesium 1.6 mg/dL (1.8-2.4); Phosphorus 1.1 mg/dL (2.5-4.9); Potassium 3.4 mmol/L (3.5-5.1); Protein, Total 6.3 g/dL (6.4-8.2); Sodium Level 137 mmol/L (136-145); Troponin I 0.09 ng/mL (0.0-0.045)
[2020-05-25] MEDS ORDERED: MAGNESIUM SULFATE 1 gm IVPB 1 GM/100 ML BAG IV ONE (06:11)
[2020-05-25] MEDS ORDERED: TRAMADOL HCL 50 MG TAB PO PRN (07:30)
--- NOTE | 2020-05-25 07:48 | EKG ---
Test Date: 2020-05-24 Test Time: 05:37:09 Cloth Feeder: RR MEASUREMENT RESULTS: Intervals: Rate: 104 MS: 126 QRSD: 66 QT: 320 QTc: 420 [place]: P: 85 MS: 126 QRS: 51 T: 67 INTERPRETIVE STATEMENTS: Sinus tachycardia Right atrial enlargement Borderline ECG Compared to ECG 05/07/2020 13:24:13 Atrial abnormality now present Sinus rhythm no longer present Short MS interval no longer present Electronically Signed On 05-25-20 07:44:53 CDT by Feng Beach
[2020-05-25] MEDS: ENOXAPARIN 40 MG/0.4 ML SQ SCH ×2 (09:00→09:33)
--- NOTE | 2020-05-25 09:22 | P.PN ---
Subjective Date of Service: 05/25/20 Primary Care Provider: [facility] Chief Complaint: Acute Pancreatitis/Chest pain Subjective: Improving (Still complaining of left upper quadrant pain) <Liam Wiley - Last Filed: 05/25/20 09:22> Date of Service: 05/25/20 <Henrique Domingo - Last Filed: 05/25/20 14:53> Review of Systems General: As per HPI Eyes: Unremarkable ENT: Unremarkable Respiratory: Unremarkable Cardiovascular: Unremarkable Gastrointestinal: Unremarkable Musculoskeletal: Unremarkable Integumentary: As per HPI Neurological: Unremarkable <Liam Wiley - Last Filed: 05/25/20 09:22> Physical Examination - Vital Signs Temperature: 97.4 F Blood Pressure: 143/94 Pulse: 81 Respirations: 18 Pulse Ox (%): 99 - Physical Exam General: Alert, In no apparent distress, Oriented x3 HEENT: Atraumatic, Normocephalic, PERRLA Neck: Supple, Other (With trachea midline) Respiratory: Clear to auscultation bilaterally, Normal air movement, Diminished Cardiovascular: No edema, Normal pulses, Regular rate/rhythm, Normal S1 S2 Capillary refill: <2 Seconds Gastrointestinal: Normal bowel sounds, Soft and benign, Non-distended Musculoskeletal: No clubbing, No swelling, No contractures Integumentary: No rashes, No breakdown, No significant lesion Neurological: Normal gait, Normal speech, Normal strength at 5/5 x4 extr, Normal tone <Liam Wiley - Last Filed: 05/25/20 09:22> Assessment And Plan - Plan Impression: Acute pancreatitis with history of fatty liver and alcohol abuse: Abnormal cardiac enzymes: Alcohol abuse: Nicotine abuse without withdrawal: Plan: Acute pancreatitis with history of fatty liver and alcohol abuse: Patient has a history of fatty liver and continues consuming alcohol. Patient was counseled. Liver enzymes improving. Total bili down from 1.8 to 1.0. Other liver enzymes improving. CT of the abdomen pelvis shows fatty liver. Will order a liver ultrasound. Patient states she had a hepatic and HIV workup done outpatient. Will try to get results and review data. Will start patient on clear liquids and advanced diet as tolerated. Continue gentle IV hydration and pain control. Patient still continues with left upper quadrant pain despite improving labs. Likely discharge in the next 24-48 hr. Abnormal cardiac enzymes: Etiology unclear. Patient was complaining of chest pain on admission but states it is likely from a with 20 times she has vomited since last night. Patient's nausea vomiting have resolved. Today patient is not complaining of chest pain. Her cardiac enzymes were still slightly elevated at 0.07 yesterday to 0.09 today. Continue on continuous telemetry. Continue trending troponins. Echocardiogram ordered with results pending. Alcohol abuse: Despite known history of fatty liver patient continues drinking. States she drank over the weekend. Was counseled greater than 20 min. Nicotine abuse without withdrawal: Smokes approximately a quarter pack of cigarettes per day average. Refuses nicotine patch. Counseled greater than 20 min. Discharge Plan: Home Plan to discharge in: 48 Hours - Code Status/Comfort Care Code Status Assessed: Yes <Liam Wiley - Last Filed: 05/25/20 09:22> - Plan Case discussed at length with PA. Agree with evaluation, assessment and plan of care. Also examined patient. Will advance diet. Start with clear liquids. Anticipate improvement over the next 24 hr. Likely discharge tomorrow. Will check liver ultrasound, hepatitis panel and HIV panel due to elevated liver func tion. Suspect related to fatty liver. Echocardiogram unremarkable as reported by Cardiology. Time Spent Managing PTS Care (In Minutes): 55 <Henrique Domingo - Last Filed: 05/25/20 14:53>
[2020-05-25] MEDS: PROMETHAZINE INJ 25 MG/ML AMP IV PRN ×3 (09:34→20:37)
[2020-05-25] MEDS: LORazepam 2 MG/ML VIAL IV PRN ×2 (09:34→17:27)
[2020-05-25] MEDS: KCL 20 MEQ/100 mL IVPB 20 MEQ/100 ML BAG IV SCH (09:34)
--- NOTE | 2020-05-25 09:53 | RAD REPORT ---
EXAM DESCRIPTION: US - Liver Only - 05/25/2020 9:43 am CLINICAL HISTORY: Abdominal pain FINDINGS: The liver is enlarged. The liver has an increased echotexture. Hepatopetal flow. A lesion is not visualized. The spleen measures 9 centimeters. IMPRESSION: Increased hepatic echotexture consistent with fatty infiltration. Hepatomegaly Unremarkable ultrasound spleen
--- NOTE | 2020-05-25 12:39 | ECHO ---
HEIGHT: 5 ft 3 in WEIGHT: 94 lb 15.955 oz DATE OF STUDY: 05/25/[address]: Henrique Domingo DO 2-DIMENSIONAL: YES M.MODE: YES DOPPLER: YES COLOR FLOW: YES TDS: NO PORTABLE: NO DEFINITY: NO BUBBLE STUDY: NO DIAGNOSIS: ELEVATED TROPONIN/ ALCOHOL ABUSE CARDIAC HISTORY: CATHERIZATION: NO SURGERY: NO PROSTHETIC VALVE: NO PACEMAKER: NO MEASUREMENTS (cm) DIASTOLIC (NORMALS) SYSTOLIC (NORMALS) IVSd 0.8 (0.6-1.2) LA Diam 2.4 (1.9-4.0) LVEF 64% LVIDd 3.7 (3.5-5.7) LVIDs 2.5 (2.0-3.5) %FS 34% LVPWd 0.8 (0.6-1.2) Ao Diam 2.8 (2.0-3.7) 2 DIMENSIONAL ASSESSMENT: RIGHT ATRIUM: NORMAL LEFT ATRIUM: NORMAL RIGHT VENTRICLE: NORMAL LEFT VENTRICLE: NORMAL TRICUSPID VALVE: NORMAL MITRAL VALVE: NORMAL PULMONIC VALVE: NORMAL AORTIC VALVE: NORMAL PERICARDIAL EFFUSION: NONE AORTIC ROOT: NORMAL LEFT VENTRICULAR WALL MOTION: NORMAL. DOPPLER/COLOR FLOW: NORMAL. COMMENTS: NOMRAL 2D ECHO WITH DOPPLER. NO WALL MOTION ABNORMALITY. NO EFFUSION. TECHNOLOGIST: CHAPO CALLOWAY
[2020-05-25] MEDS: carvediloL 3.125 MG TAB PO SCH (17:28)
[2020-05-25] MEDS: ALPRAZOLAM 0.5 MG TABLET PO PRN (20:37)
[2020-05-25 21:30] LABS: Magnesium 1.8 mg/dL (1.8-2.4); Potassium 3.9 mmol/L (3.5-5.1)
[2020-05-25] MEDS: ENSURE HIGH PROTEIN 237 ML CAN PO SCH (21:37)
[2020-05-25] MEDS: HYDROCODONE/APAP 7.5/325 MG TAB PO PRN (22:46)
[2020-05-26] MEDS: MORPHINE 4 MG/ML SYR IV PRN ×2 (00:33→05:01)
[2020-05-26] MEDS: LORazepam 2 MG/ML VIAL IV PRN (00:33)
[2020-05-26 02:50] VITALS: O2SAT 95
[2020-05-26] MEDS: PROMETHAZINE INJ 25 MG/ML AMP IV PRN ×2 (05:05→08:35)
[2020-05-26] MEDS: NA CHLORIDE 0.9% 1,000 ML IV SCH (06:14)
[2020-05-26 06:24] LABS: Absolute Lymphocytes (CBC) 0.9 K/uL (0.7-4.9); Hematocrit 36.8 % (36.0-45.0); Lymphocytes % 35.7 % (15.3-44.8); MPV 8.9 fL (7.6-11.3)
[2020-05-26] MEDS: carvediloL 3.125 MG TAB PO SCH (06:27)
[2020-05-26 06:57] LABS: BUN Blood Urea Nitrogen 2 mg/dL (7-18); Bicarbonate 31 mmol/L (21-32); Glucose Level 101 mg/dL (74-106); Magnesium 1.8 mg/dL (1.8-2.4); Potassium 3.7 mmol/L (3.5-5.1); Sodium Level 138 mmol/L (136-145)
[2020-05-26 08:26] VITALS: TEMP 97
[2020-05-26] MEDS: HYDROCODONE/APAP 7.5/325 MG TAB PO PRN (08:34)
[2020-05-26] MEDS: ENSURE HIGH PROTEIN 237 ML CAN PO SCH (08:35)
[2020-05-26] MEDS: ENOXAPARIN 40 MG/0.4 ML SQ SCH (08:35)
--- NOTE | 2020-05-26 10:44 | P.DS ---
Admission Date: 05/24/20 Discharge Date: 05/26/20 Primary Care Provider: [facility] Disposition: ROUTINE DISCHARGE Discharge Condition: GOOD Reason for Admission: Acute Pancreatitis/Chest pain Consultations: none Procedures: ECHO: EF 64% LEFT VENTRICULAR WALL MOTION: NORMAL. DOPPLER/COLOR FLOW: NORMAL. COMMENTS: NOMRAL 2D ECHO WITH DOPPLER. NO WALL MOTION ABNORMALITY. NO EFFUSION. Liver US: FINDINGS: The liver is enlarged. The liver has an increased echotexture. Hepatopetal flow. A lesion is not visualized. The spleen measures 9 centimeters. IMPRESSION: Increased hepatic echotexture consistent with fatty infiltration. Hepatomegaly Unremarkable ultrasound spleen CT scan: FINDINGS: The lung bases are clear. The liver demonstrates advanced fatty infiltration. Cholecystectomy. Spleen, pancreas, adrenal glands and kidneys are within normal limits. No bowel obstruction, free air, free fluid or abscess. The appendix is normal. No evidence of significant lymphadenopathy. No suspicious bony findings. IMPRESSION: No acute intra-abdominal or pelvic finding. Advanced fatty liver. Medical Problem List: Acute alcoholic pancreatitis Abnormal cardiac enzymes likely related to above Hypertension Alcohol abuse Elevated liver function secondary to Advanced fatty liver/alcohol abuse with hepatomegaly Nicotine abuse without withdrawal Anxiety Moderate protein malnutrition Subclinical hypothyroidism Brief History of Present Illness: 44-year-old female presented to the emergency room with abdominal pain, nausea and vomiting. Patient found to have acute alcoholic pancreatitis. Patient was admitted for further evaluation and treatment. Hospital Course: Patient presented with nausea, vomiting and epigastric pain. This was secondary to acute alcoholic pancreatitis. The patient was admitted for further evaluation and treatment. Patient received IV fluids, antiemetic therapy and pain control. The patient has done well. Her diet was advanced. At discharge she is able to tolerate soft diet. She is without significant abdominal pain. At discharge recommendation is for alcohol cessation. Education addressed in detail. Patient understands the risk of continued alcohol use and recurrent pancreatitis. She plans to quit. Recommend follow up with GI to further monitor and address. Patient will be given a limited supply of tramadol 50 mg 1 pill twice daily as needed for pain. Patient had elevated liver function. This was secondary to acute pancreatitis, alcohol abuse and advanced fatty liver. CT scan revealed advanced fatty liver with hepatomegaly. As recommended above, alcohol cessation addressed in detail. She understands the risks of continued use. Recommend follow up with GI to further monitor and address. Patient had elevated blood pressures. Suspect underlying hypertension. Patient was started on low-dose carvedilol. At discharge patient will continue with carvedilol 3.125 mg 1 pill twice daily. Recommend to monitor blood pressure daily. Recommend to maintain blood pressure less than 140/90. If blood pressure systolic less than 110 she may hold carvedilol. Recommend follow up with her PCP to further monitor and address. Patient had mild elevation cardiac enzymes. This was likely related to above. Echocardiogram unremarkable with normal ejection fraction. Patient would benefit with cardiac evaluation in the future. Information will be provided. Patient with tobacco abuse. Tobacco cessation addressed in detail. Patient with anxiety. Patient takes medication. At discharge she will be provided Xanax 0.25 mg twice daily as needed. A limited supply will be provided. Recommend follow up with her PCP to further monitor and address. Patient may have underlying GERD. At discharge she will be provided Pepcid 20 mg twice daily. Recommend follow up with GI to further monitor and address. Patient would benefit with EGD in the future. Patient with moderate malnutrition. This is likely from alcohol abuse. Recommend multi vitamin daily, thiamine 100 mg daily, and folic acid 1 mg daily. Encourage heart healthy diet. Prescription for Ensure high protein provided. Patient had abnormal tsh with normal free T4. Patient may have underlying subclinical hypothyroidism. Recommend to recheck lab-tsh and free T4 in 4-6 weeks to further address. If abnormal patient may require thyroid medication in the future. This can be further addressed by her PCP. Vital Signs/Physical Exam: Temp Pulse Resp BP Pulse Ox 97 F 70 19 135/92 H 95 05/26/20 08:00 05/26/20 08:00 05/26/20 08:34 05/26/20 08:00 05/26/20 08:34 General: Alert, In no apparent distress, Oriented x3, Cooperative HEENT: Atraumatic Neck: Supple Respiratory: Clear to auscultation bilaterally, Normal air movement Cardiovascular: Normal pulses, Regular rate/rhythm Gastrointestinal: Normal bowel sounds, Soft and benign, Non-distended, No tenderness, No masses, No rebound, No guarding Musculoskeletal: No erythema, No tenderness, No warmth Integumentary: No tenderness/swelling, No erythema, No warmth, No cyanosis, Other (Muscle wasting to the upper and lower extremities) Neurological: Normal speech, Normal strength at 5/5 x4 extr, Normal tone, Normal affect Laboratory Data at Discharge: WBC 2.5 K/uL (4.3-10.9) L D 05/26/20 05:53 Hgb 12.4 g/dL (12.0-15.0) 05/26/20 05:53 Hct 36.8 % (36.0-45.0) 05/26/20 05:53 Plt Count 135 K/uL (152-406) L 05/26/20 05:53 PT 11.8 SECONDS (9.5-12.5) 05/24/20 05:32 INR 1.00 05/24/20 05:32 Sodium 138 mmol/L (136-145) 05/26/20 05:53 Potassium 3.7 mmol/L (3.5-5.1) 05/26/20 05:53 BUN 2 mg/dL (7-18) L 05/26/20 05:53 Creatinine 0.40 mg/dL (0.55-1.3) L 05/26/20 05:53 Glucose 101 mg/dL (74-106) 05/26/20 05:53 Phosphorus 1.1 mg/dL (2.5-4.9) L 05/25/20 05:20 Magnesium 1.8 mg/dL (1.8-2.4) 05/26/20 05:53 Total Bilirubin 1.0 mg/dL (0.2-1.0) 05/25/20 05:20 AST 149 U/L (15-37) H D 05/25/20 05:20 ALT 101 U/L (12-78) H 05/25/20 05:20 Alkaline Phosphatase 232 U/L (45-117) H 05/25/20 05:20 Troponin I 0.08 ng/mL (0.0-0.045) H 05/25/20 13:47 Triglycerides 106 mg/dL (<150) 05/24/20 05:32 Cholesterol 228 mg/dL (<200) H 05/24/20 05:32 HDL Cholesterol 131 mg/dL (40-60) H 05/24/20 05:32 Cholesterol/HDL Ratio 1.74 05/24/20 05:32 Lipase Cancelled 05/25/20 13:43 Home Medications: ALPRAZolam [Xanax] 0.25 mg PO BID PRN #15 tab 05/26/20 Ensure High Protein 237 ml PO BID #60 can 05/26/20 Famotidine [Pepcid AC] 20 mg PO BID #60 tablet 05/26/20 Folic Acid 1 mg PO DAILY #90 tablet 05/26/20 Multivit with Calcium,Iron,Min [Multiple Vitamins For Women] 1 each PO DAILY #90 tablet 05/26/20 Thiamine HCl 100 mg PO DAILY #90 tablet 05/26/20 Tramadol HCl [Ultram] 50 mg PO BID PRN #15 tablet 05/26/20 carvediloL [Coreg*] 3.125 mg PO BID 6AM 6PM #60 tab 05/26/20 New Medications: carvediloL [Coreg*] 3.125 mg PO BID 6AM 6PM #60 tab Ensure High Protein 237 ml PO BID #60 can Folic Acid 1 mg PO DAILY #90 tablet Multivit with Calcium,Iron,Min [Multiple Vitamins For Women] 1 each PO DAILY #90 tablet Famotidine [Pepcid AC] 20 mg PO BID #60 tablet Thiamine HCl 100 mg PO DAILY #90 tablet Tramadol HCl [Ultram] 50 mg PO BID PRN #15 tablet PRN Reason: Pain Scale 2-4 (Mild) ALPRAZolam [Xanax] 0.25 mg PO BID PRN #15 tab PRN Reason: Anxiety Patient Discharge Instructions: 1. Recommend follow up with PCP in 1 week to follow up this hospitalization. 2. Patient presented with nausea, vomiting and epigastric pain. This was secondary to acute alcoholic pancreatitis. The patient was admitted for further evaluation and treatment. Patient received IV fluids, antiemetic therapy and pain control. The patient has done well. Her diet was advanced. At discharge she is able to tolerate soft diet. She is without significant abdominal pain. At discharge recommendation is for alcohol cessation. Education addressed in detail. Patient understands the risk of continued alcohol use and recurrent pancreatitis. She plans to quit. Recommend follow up with GI to further monitor and address. Patient will be given a limited supply of tramadol 50 mg 1 pill twice daily as needed for pain. 3. Patient had elevated liver function. This was secondary to acute pancreatitis, alcohol abuse and advanced fatty liver. CT scan revealed advanced fatty liver with hepatomegaly. As recommended above, alcohol cessation addressed in detail. She understands the risks of continued use. Recommend follow up with GI to further monitor and address. 4. Patient had elevated blood pressures. Suspect underlying hypertension. Patient was started on low-dose carvedilol. At discharge patient will continue with carvedilol 3.125 mg 1 pill twice daily. Recommend to monitor blood pressure daily. Recommend to maintain blood pressure less than 140/90. If blood pressure systolic less than 110 she may hold carvedilol. Recommend follow up with her PCP to further monitor and address. 5. Patient had mild elevation cardiac enzymes. This was likely related to above. Echocardiogram unremarkable with normal ejection fraction. Patient would benefit with cardiac evaluation in the future. Information will be provided. 6. Patient with tobacco abuse. Tobacco cessation addressed in detail. 7. Patient with anxiety. Patient takes medication. At discharge she will be provided Xanax 0.25 mg twice daily as needed. A limited supply will be provided. Recommend follow up with her PCP to further monitor and address. 8. Patient may have underlying GERD. At discharge she will be provided Pepcid 20 mg twice daily. Recommend follow up with GI to further monitor and address. Patient would benefit with EGD in the future. 9. Patient with moderate malnutrition. This is likely from alcohol abuse. Recommend multi vitamin daily, thiamine 100 mg daily, and folic acid 1 mg daily. Encourage heart healthy diet. Prescription for Ensure high protein provided. 10. Patient had abnormal tsh with normal free T4. Patient may have underlying subclinical hypothyroidism. Recommend to recheck lab-tsh and free T4 in 4-6 weeks to further address. If abnormal patient may require thyroid medication in the future. This can be further addressed by her PCP. Diet: GI soft diet then advance to heart healthy Activity: Ad jian Time spent managing pt's care (in minutes): 55
[2020-05-26] MEDS ORDERED: ONDANSETRON 4 MG (ODT) TAB PO ONE (12:23)
[2020-05-26 14:41] VITALS: BP 128/88
[2020-05-31 18:44] LABS: HIV AG/AB 4TH GEN Non-reactive (Non-reactive)
[2020-05-31 19:24] LABS: HBsAG Nonreactive (Nonreactive)
== END 2020-05-26 12:59 | disposition home or self-care (01) | DRG 439 ==
LOC: ER 05:21 → ERHOLD 12:46 → 2ND 20:59
PROVIDERS: ADMIT Family Medicine; ATTEND Family Medicine
DX: K85.20 Alcohol induced acute pancreatitis without necrosis or infection (principal); E44.0 Moderate protein-calorie malnutrition; Z68.1 Body mass index [BMI] 19.9 or less, adult; F17.200 Nicotine dependence, unspecified, uncomplicated; R05 Cough; Z90.49 Acquired absence of other specified parts of digestive tract; Z20.828 Contact with and (suspected) exposure to other viral communicable diseases; F10.10 Alcohol abuse, uncomplicated; I10 Essential (primary) hypertension; R79.89 Other specified abnormal findings of blood chemistry; K70.0 Alcoholic fatty liver; F41.9 Anxiety disorder, unspecified; E02 Subclinical iodine-deficiency hypothyroidism; K21.9 Gastro-esophageal reflux disease without esophagitis; Z79.01 Long term (current) use of anticoagulants; Z79.899 Other long term (current) drug therapy
CPT/HCPCS: 36415; 71045; 74177; 76705; 80048; 80053; 80061; 80074; 80076; 83690; 83735; 83880; 84100; 84132; 84439; 84443; 84484; 85025; 85610; 87389; 93005; 93306; 96361; 96374; 96375; 99285; J1650; J2405; J2550; J3475; J3480; J7030; Q9967; U0002

== ENCOUNTER 2020-07-29 23:52 | Emergency (ER) | payer SELFPAY ==
--- OUTSIDE RECORDS SUMMARY | 2020-07-29 23:54 | XMS REPORT | Clinical Summary ---
:1975 Author Organization [employer] [facility] Address [address] [place] [address] Care Team Providers Name Role Phone Asked, [...] encounter; Fall on stairs, initial encounter after 07/29/2019 Social History Tobacco Use Types Packs/Day Years [...] Comments CERVICAL CANCER SCREENING 1998 INFLUENZA VACCINE 07/12/2020 Procedures Procedure Name Priority Date/Time Associated Comments Diagnosis ED REFERRAL TO [place] Routine 01/31/2020 3:03 ORTHODOX PHYSICIAN AM CDT ORGANIZATION CT ABDOMEN PELVIS [...] 4:59 R esults for this SCREEN PM LOAN SPECIALIST procedure are i n the results section. URINALYSIS STAT 01/09/2020 4:59 Results for this PM LOAN SPECIALIST procedure are i n the results section. STREP SCREEN CULTURE Routine 01/09/2020 3:59 Res ults for this PM LOAN SPECIALIST procedure are i n the results section. GROUP A STREP, RAPID Routine 01/09/2020 3:49 Res ults for this ANTIGEN PM LOAN SPECIALIST procedure are i n the results section. INFLUENZA ANTIGEN Routine 01/09/2020 3:49 Result s for this PM LOAN SPECIALIST procedure are i n the results section. ESTIMATED GFR STAT 01/09/2020 3:47 Results fo r this PM LOAN SPECIALIST procedure are i n the results section. AMYLASE LEVEL STAT 01/09/2020 3:47 Results fo r this PM LOAN SPECIALIST procedure are i n the results section. COMPREHENSIVE METABOLIC STAT 01/09/2020 3:47 Results for this PANEL PM LOAN SPECIALIST procedure are i n the results section. HC COMPLETE BLD COUNT STAT 01/09/2020 3:47 Re sults for this W/AUTO DIFF PM LOAN SPECIALIST procedure are i n the results section. XR FOOT 3+ VW RIGHT STAT 12/24/2019 9:48 Resu lts for this PM LOAN SPECIALIST procedure are i n the results section. after 07/29/[address] Abdomen Pelvis W Contrast (01/31/2020 [...] appropria te moderation of exposure. Automated dose change management consultant nology is applied to adjust radiation exposure [...] 4.Additional chronic findings as detaile d above. [id number] Procedure Note Interface, Radiology Results Incoming - [...] ensure appropriate moderation of exposure. Automated dose change management consultant nology is applied to adjust radiation exposure [...] 4.Additional chronic findings as detaile d above. [id number] Performing Organization Address City/State/Zipcode Phone Number [facility] [address] [place] [address] CT Angiogram Pe Chest (01/31/2020 2:36 AM CDT) Specimen Narrative Performed At [facility]: PE suspected high pretest prob [...] appropria te moderation of exposure. Automated dose change management consultant nology is applied to adjust radiation exposure [...] embolism. 2. Lungs without acute airspace disease. [id number] Procedure Note Interface, Radiology Results Incoming - [...] ensure appropriate moderation of exposure. Automated dose change management consultant nology is applied to adjust radiation exposure [...] embolism. 2. Lungs without acute airspace disease. [id number] Performing Organization Address City/State/Zipcode Phone Number [facility] [address] [place] [address] Urinalysis (01/31/2020 12:35 AM CDT)Only the most recent of2 resultswithin the time period is included. Glucose, UA Negative Negative [facility] Bilirubin, UA Positive@UBIL (A) Negative [facility] Ketones, UA 2+ (A) Negative [facility] Specific gravity, 1.020 1.001 - 1.035 [facility]GENCY [facility] Blood, UA Negative Negative [facility] pH, UA 6.5 5.0 - 8.5 [facility] Protein, UA Trace (A) Negative [facility] Urobilinogen, UA <2.0 <2.0 [facility] Nitrite, UA Negative Negative [facility] Leukocyte Small (A) Negative [facility] esterase, UA [facility] Color, UA Dark Yellow [facility] Appearance, UA Cloudy [facility] Specimen Urine Performing Organization Address City/State/Zipcode Phone Number DEPARTMENT OF PATHOLOGY AND [address] [place] [address]. [place], [place] [phone] [facility] EMERGENCY [facility] hCG qualitative, urine screen (01/31/2020 12:35 AM CDT)Only the most recent of2 resultswithin the time period is included. Pathologist [facility] hCG qualitative, Negative [facility] urine Comment: [facility] Sensitivity of HCG test: 25 mIU/mL [facility] Negative test results in patients suspected to be should be retested with a sample obtained 48-72 hours later, or by performing a quantitative assay. Specimen Urine Performing Organization Address City/[facility] Phone Number DEPARTMENT OF PATHOLOGY AND [address] [place] [address] [phone] Estimated GFR (01/31/2020 12:30 AM CDT)Only the most recent of2 resultswithin the time period is included. Pathologist [facility] Estimated GFR 79 mL/min/1.73 [facility] Comment: [address] EMERGENCY Catergory Units Interpretation CAR E [...] City/State/Zipcode Phone Number DEPARTMENT OF PATHOLOGY AND [address] [place] [address]. [place], [place] [phone] [facility] EM[facility]Y [address] [place] [address] Troponin, I-Stat (01/31/2020 12:30 AM CDT) Pathologist [facility] Troponin, I-Stat 0.00 0.00 - 0.08 [facility] Comment: ng/mL [facility] 0.09 - 1.49 ng/ml May indicate increa sed risk of acute [facility] coronary syndrome. >=1.5 ng/ml Consistent with acute myocardial infarction. The diagnostic value of a single normal or non-diagnos tic result is questionable. Serial samples at 2-6 hour i ntervals are required to rule out acute myocardial injury. Specimen Blood Performing Organization Address City/[facility] Phone Number DEPARTMENT OF PATHOLOGY AND [address] [place] [phone] [facility] EMERGENCY [address] [place] [address] Lactic acid, I-Stat (01/31/2020 12:30 AM CDT) Pathologist [facility] Lactic acid, I-Stat 1.7 0.5 - 2.2 mmol/L [facility] Specimen Blood Performing Organization Address City/[facility] Phone Number DEPARTMENT OF PATHOLOGY AND [address] [place] [phone] [facility] EM[facility]GENCY [address] CBC with platelet and differential (01/31/2020 12:30 AM CDT)Only the most recent of2 resultswithin the time period is included. [facility] WBC 6.35 4.50 - 11.00 k/uL [facility] RBC 4.45 4.20 - 5.50 m/uL [facility] HGB 14.0 12.0 - 16.0 g/dL [facility] HCT 42.4 37.0 - 47.0 % [facility] MCV 95.3 82.0 - 100.0 fL [facility] MCH 31.5 27.0 - 34.0 pg [facility] MCHC 33.0 31.0 - 37.0 g/dL [facility] RDW - SD 43.4 37.0 - 55.0 fL [facility] MPV 10.1 8.8 - 13.2 fL [facility] Platelet count 252 150 - 400 k/uL [facility] Neutrophils 79.1 (H) 39.0 - 69.0 % [facility] Lymphocytes 13.2 (L) 25.0 - 45.0 % [facility] Monocytes 6.3 0.0 - 10.0 % [facility] Eosinophils 0.8 0.0 - 5.0 % [facility] Basophils 0.6 0.0 - 1.0 % [facility] Specimen Blood Performing Organization Address City/State/[facility] Phone Number DEPARTMENT OF PATHOLOGY AND [address] [place] [address] [phone] Lipase level (01/31/2020 12:30 AM CDT) Pathologist Sig nature Lipase 25 13 - 60 U/L [facility] Specimen Serum Performing Organization Address City/[facility] Phone Number [facility] DEPARTMENT OF PATHOLOGY AND [address] [place] [address] [phone] [address] Creatine kinase, total (CPK) (01/31/2020 12:30 AM CDT) Pathologist Sig nature Creatine kinase 36 30 - 190 U/L [facility] Specimen Blood Performing Organization Address City/[facility] Phone Number DEPARTMENT OF PATHOLOGY AND [address] [place] [address] [phone] Amylase level (01/31/2020 12:30 AM CDT)Only the most recent of2 resultswithin the time period is included. Pathologist Sig nature Amylase 31 14 - 97 U/L [facility] Specimen Serum Performing Organization Address City/[facility]/Zipcode Phone Number DEPARTMENT OF PATHOLOGY AND [address] [place] [phone] [facility] EMERGENCY [address] [place] [address] Comprehensive metabolic panel (01/31/2020 12:30 AM CDT)Only the most recent of2 resultswithin the time period is included. Sodium 135 128 - 145 [facility] mEq/L [facility] Potassium 5.1 3.6 - 5.1 [facility] mEq/L [facility] CO2 32 18 - 33 mEq/L [facility] Chloride 105 98 - 108 mEq/L [facility] Glucose 136 (H) 73 - 118 mg/dL [facility] Calcium 10.1 8.0 - 10.3 [facility] mg/dL [facility] BUN 11 7 - 22 mg/dL [facility] Creatinine 0.9 0.5 - 0.9 [facility] mg/dL [facility] Alkaline phosphatase 228 (H) 42 - 141 U/L [facility] ALT 60 (H) 10 - 47 U/L [facility] AST 134 (H) 11 - 38 U/L [facility] Total bilirubin 1.2 0.2 - 1.6 [facility] mg/dL [facility] Albumin 4.0 3.3 - 5.5 g/dL [facility] Protein 8.3 (H) 6.4 - 8.1 g/dL [facility] Anion gap -2@ANIO (L) 7 - 15 mEq/L [facility] A/G ratio 0.9 0.7 - 3.8 [facility] Specimen Blood Performing Organization Address City/State/Zipcode Phone Number DEPARTMENT OF PATHOLOGY AND [address] [place] [phone] [facility]IC[facility], [facility] EMERGENC[facility] [address] [place] [address] [facility] ECG ED Preliminary Interpretation - Not an Order (01/31/2020 12:28 AM CDT) Narrative Performed At Gregory Bryan DO 2019 3:05 AM ECG ED Preliminary Interpretation - Not an Order Performed by: Gregory Bryan DO Authorized by: Gregory Bryan DO ECG reviewed by ED Physician in the abse nce of a able bodied seaman: yes Interpretation: Interpretation: abnormal Rate: ECG rate: [...] [facility] Atrial rate 91 [facility] OH interval 118 [facility] QRSD interval 50 [facility] QT interval 348 [facility] QTC interval 428 [facility] P axis 1 84 [facility] QRS axis 1 59 [facility] T wave axis 55 [facility] EKG impression Normal sinus rhythm [facility] MUSE with sinus arrhythmia-Right atrial enlargement-Septal infarct , age undetermined-Abnormal ECG-No previous ECGs available-Electronicall y Signed By Jeanine Condon MD ([id number]) on 02/01/2020 8:23:35 AM Specimen Narrative Performed At This result has an attachment that is no t available. Performing Organization Address City/State/Zipcode Phone Number [facility] MUSE [address] [place] [address] Strep screen culture (01/09/2020 3:59 PM LOAN SPECIALIST) Strep screen No beta hemolytic Streptococci isolated [facility] culture isolate Comment: HOSPITAL Specimen Information Specimen Source: Throat Specimen Site: Not otherwise specified Specimen Throat - Not otherwise specified Performing Organization Address City/State/Zipcode Phone Number [facility] DEPARTMENT OF PATHOLOGY AND [address] [place] [phone] [facility] [address] [address] Group A strep, rapid antigen (01/09/2020 3:49 PM LOAN SPECIALIST) Group A strep, Negative for Group A Streptococcus antigen. [facility] rapid antigen Comment: [facility] result Specimen Information [facility] Specimen Source: Throat Specimen Site: Not otherwise specified Specimen Throat - Not otherwise specified Performing Organization Address City/State/Zipcode Phone Number DEPARTMENT OF PATHOLOGY AND [address] [place], [place] [address] [facility] [address] [facility] [place] [address] [facility] Influenza antigen (01/09/2020 3:49 PM LOAN SPECIALIST) Influenza antigen Negative for Influenza A/B antigen. [facility] Comment: [facility] Specimen [facility] Specimen Source: Nar Specimen Site: Other- Detailed Description Required Specimen [facility] - Other- Detailed Description Requ ired Performing Organization Address City/State/Zipcode Phone Number DEPARTMENT OF PATHOLOGY AND [address] [facility]. [place], [place] [address] [facility], [facility] [address] [place] [address] [facility] XR Foot 3+ Vw Right (12/24/2019 9:48 PM LOAN SPECIALIST) Specimen Narrative Performed At EXAMINATION: XR FOOT 3 VW RIGHT [facility] CLINICAL HISTORY: fall COMPARISON: None. IMPRESSION: No acute osseous abnormality or malalign ment is noted. [id number] Procedure Note Interface, Radiology Results Incoming - 12/24/2019 9:53 PM LOAN SPECIALIST EXAMINATION: XR FOOT 3 VW RIGHT CLINICAL HISTORY: fall COMPARISON: None. IMPRESSION: No acute osseous abnormality or malalign ment is noted. [id number] Performing Organization Address City/State/Zipcode Phone Number [facility] [address] [place] [address] after 07/29/2019 Advance Directives For more information, please contact: [phone] Type Date Recorded Patient Webbing Tacker Explanati on Advance Directives, Living Will and Medical Power of Side Panel Hanger
--- OUTSIDE RECORDS SUMMARY | 2020-07-29 23:54 | XMS REPORT | Continuity of Care Document ---
:1975 Author Organization [facility] t Address [facility] access [facility] [place] [address] Care Team Providers Name Role Phone Asked, No Pcp Primary Care Physician Unavailable Jaqueline Bryan DO Attending Clinician Shad Fernandez MD Attending Clinician Stanton Mario MD Attending Clinician Problems This patient has no known problems. Allergies, Adverse Reactions, Alerts This patient has no known allergies or adverse reactions. Social History Social Habit Start Date Stop Date Quantity Comments Source History of Cigarette Smoker [facility] tobacco use Sex Assigned At [facility] ethodi Alcohol intake 2020-01-31 2020-01-31 Current drinker [place] [facility] 00:00:00 00:00:00 of alcohol (finding) Alcohol Comment 2019-12-24 2019-12-24 social [facility] ethodist 00:00:00 00:00:00 Smoking Status Start Date Stop Date Source Current some day smoker 2020-01-31 00:00:00 Hous [facility] Medications Ordered Filled Start Stop Current Ordering [...] blood 2020-01-31 03:22:00 90 mm[Hg] [place] on [facility] pressure Heart rate 2020-01-31 03:22:00 77 /min [facility] Respiratory rate 2020-01-31 03:22:00 20 /min Shelby gerson [facility] Oxygen saturation in 2020-01-31 03:22:00 98 /min [facility] Arterial blood by Pulse oximetry Body temperature 2020-01-31 00:29:46 37 Cammy Shelby gerson [facility] Body height 2020-01-31 00:27:00 157.5 cm [facility] Body weight 2020-01-31 00:27:00 40.824 kg Ceasar Albrecht BMI 2020-01-31 00:27:00 16.46 kg/m2 Ceasar Albrecht Procedures Procedure Date / Time Performing Clinician Source Performed ED REFERRAL TO [place] 2020-01-31 03:03:29 Gregory Bryan TAOISM PHYSICIAN Jaqueline LANIER CT ABDOMEN PELVIS W 2020-01-31 02:37:07 Gregory Bryan CONTRAST Jaqueline CT ANGIOGRAM PE CHEST 2020-01-31 02:36:42 Gregory Bryan URINALYSIS 2020-01-31 00:35:00 Gregory Bryan Ut stefan Gray HCG QUALITATIVE, URINE 2020-01-31 00:35:00 Gregory Bryan SCREEN Jaqueline COMPREHENSIVE METABOLIC 2020-01-31 00:30:00 Gregory Bryan PANEL Jaqueline LACTIC ACID, I-STAT 2020-01-31 00:30:00 Gregory Bryan CREATINE KINASE, TOTAL 2020-01-31 00:30:00 Gregory Bryan (CPK) Jaqueline TROPONIN, I-STAT 2020-01-31 00:30:00 Gregory Bryan M ethodist Jaqueline HC COMPLETE BLD COUNT 2020-01-31 00:30:00 Gregory Bryan W/AUTO DIFF Jaqueline AMYLASE LEVEL 2020-01-31 00:30:00 Gregory Bryan Ut [facility] Jaqueline LIPASE LEVEL 2020-01-31 00:30:00 Gregory Bryan Ut [facility] Jaqueline ESTIMATED GFR 2020-01-31 00:30:00 Gregory Bryan [facility] Jaqueline ECG ED PRELIMINARY 2020-01-31 00:28:05 TessGregory Ceasar Albrecht INTERPRETATION Jaqueline ECG 12-LEAD 2020-01-31 00:21:47 BryanGregory perez [facility] Jaqueline URINALYSIS 2020-01-09 16:59:00 Omar Fernandezael Shad [facility] HCG QUALITATIVE, URINE 2020-01-09 16:59:00 Krishan Fernandez [place] [facility] SCREEN STREP SCREEN CULTURE 2020-01-09 15:59:00 Krishan Fernandez on [facility] INFLUENZA ANTIGEN 2020-01-09 15:49:00 Krishan Fernandez GROUP A STREP, RAPID 2020-01-09 15:49:00 Krishan Fernandez on [facility] ANTIGEN HC COMPLETE BLD COUNT 2020-01-09 15:47:00 Krishan Fernandez [facility] W/AUTO DIFF COMPREHENSIVE METABOLIC 2020-01-09 15:47:00 Krishan Fernandez [place] [facility] PANEL AMYLASE LEVEL 2020-01-09 15:47:00 Krishan Fernandez [facility] ESTIMATED GFR 2020-01-09 15:47:00 Krishan Fernandez [facility] XR FOOT 3+ VW RIGHT 2019-12-24 21:48:51 Jaqueline Mario Plan of Care Planned Activity Planned Date Details Comments Source Future Scheduled 2020-07-12 INFLUENZA VACCINE [place] [facility] 00:00:00 [code = INFLUENZA VACCINE] Future Scheduled 1998 Screening for [place] [facility] Test 00:00:00 malignant neoplasm of cervix (procedure) [code = 830480855] Encounters Start End Encounter Admission Attending Care Care Encounter Source Date/Time Date/Time Type Type Clinicians Facility Department ID 2020-01-31 2020-01-31 Emergency [facility] [id number] [place] 00:00:00 00:00:[address] 2020-01-09 2020-01-09 Emergency [facility]4 [id number] [place] 00:00:00 00:00:00 KRISHAN Rios [facility] 2019-12-24 2019-12-24 Emergency [place] [id number] [place] 00:00:00 00:00:00 JAQUELINE Lara [facility] 2019-11-09 2019-11-09 Emergency E [facility] [id number] [facility] 20:17:00 20:17:00 melanie Riddle [facility] l [facility] Results Test Description Test Time Test Comments Results Result Comments Source ECG 12 lead 2020-02-01 08:23:38 Test Item Value Reference Range Interpretation Comme nts Ventricular rate (test code = 253) 91 Atrial rate (test code = 255) 91 [place] interval (test code = 266) 118 QRSD [...] , age undetermined-Abnormal ECG-No previous ECGs available- [place] MethodistLipase [id number] 03:31:28 Test Item Value Reference Range Interpretation Comments Lipase (test code = 3040-3) 25 U/L 13-60 [place] MethodistCT Abdomen Pelvis W [id number] 02:42:54Hm Interface, Radiology Results - 01/31/2020 2:46 [...] a reservoir effect.4.Additional chronic findings as detailed above.[facility]-[id number] [facility] hospitalCT Angiogram Pe [id number] 02:42:10Hm Interface, Radiology Results 01/31/2020 2:45 AM [...] pulmonary embolism.2. Lungs without acute airspace disease. [facility]-[id number] MethodistCreatine kinase, total (CPK)2020-01-31 01:10:25 Test Item Value Reference Range Interpretation Comments Creatine kinase (test code = 2157-6) 36 U/L 30-190 [place] MethodisthCG qualitative, urine [id number] 01:09:54 Test Item Value Reference Range Interpretation Comments hCG qualitative, Negative Sensitivity of HCG test: urine (test code = 25 mIU/mL Negative test 6-3) results in gary ents suspected to be should be retes mariela with a sample obtained 48-72 hours later, or by performing a qu antitative assay. [place] [id number] 01:09:54 Test Item Value Reference Range Interpretation Comments Glucose, UA (test code = Negative Negative 72499-0) Bilirubin, UA (test code = Positive@UBIL Negative A 5770-3) Ketones, UA (test code = 2+ Negative A 2514-8) Specific gravity, UA (test code 1.020 1.001-1.035 = 5811-5) Blood, UA (test code = 5794-3) Negative Negative pH, UA (test code = 5803-2) 6.5 5.0-8.5 Protein, UA (test code = Trace Negative A 68018-4) Urobilinogen, UA (test code = <2.0 <2.0 30600-9) Nitrite, UA (test code = Negative Negative 5802-4) Leukocyte esterase, UA (test Small Negative A code = 5799-2) Color, UA (test code = 5778-6) Dark Yellow Appearance, UA (test code = Cloudy 5767-9) Lab Interpretation (test code = Abnormal 12907-9) [place] MethodistComprehensive metabolic [id number] 01:00:14 Test Item Value Reference Range Interpretation Comments Sodium (test code = 2951-2) 135 128- 145 mEq/L Potassium (test code = 2823-3) 5.1 3.6- 5.1 mEq/L CO2 (test code = 2027-9) 32 18- 33 mEq/L Chloride (test code = 2075-0) 105 98- 108 mEq/L Glucose (test code = 2345-7) 136 mg/dL 73-118 H Calcium (test code = 70561-9) 10.1 mg/dL 8-10.3 BUN (test code = [...] 6.4-8.1 H Anion gap (test code = 25429-8) -2@ANIO 7- 15 mEq/L L A/G ratio (test code = 1759-0) 0.9 0.7-3.8 Lab Interpretation (test code = Abnormal 07853-5) [facility] with platelet and [id number] 01:00:14 Test Item Value Reference Range Interpretation Comments WBC (test code = 52339-5) 6.35 4.50- 11.00 k/uL RBC (test code = 76614-3) 4.45 m/uL 4.2-5.5 HGB (test code = 718-7) 14.0 g/dL 12-16 HCT (test code = 4544-3) 42.4 % 37-47 MCV (test code = 787-2) 95.3 fL 82-100 MCH (test code = 785-6) 31.5 pg 27-34 MCHC (test code = 786-4) 33.0 g/dL 31-37 RDW - SD (test code = 81245-1) 43.4 fL 37-55 MPV (test code = 81328-2) 10.1 fL 8.8-13.2 Platelet count (test code = 252 150- 400 k/uL 81289-5) Neutrophils (test code = 67151-7) 79.1 % 39-69 H Lymphocytes (test code = 66321-3) 13.2 % 25-45 L Monocytes (test code = 17359-9) 6.3 % 0-10 Eosinophils (test code = 33313-1) 0.8 % 0-5 Basophils (test code = 31785-9) 0.6 % 0-1 Lab Interpretation (test code = Abnormal 78314-8) [facility] MethodistLactic acid, [id number] 01:00:14 Test Item Value Reference Range Interpretation Comments Lactic acid, I-Stat (test code = 1.7 mmol/L 0.5-2.2 47766-4) [facility] MethodistTroponin, [id number] 01:00:14 Test Item Value Reference Range Interpretation [...] rule out acute myocardial injury. [facility] MethodistEstimated [id number] 01:00:14 Test Item Value Reference Range Interpretation Comments Estimated GFR (test 79 mL/min/1.73 m2 Caterg ory Units code = 5488) InterpretationG 1 >=90 Normal or highG2 60-89 Mildly flcumurkwR6s 45-59 Mildly to mode rately adjtayxzfU1s 30-44 Moderately to severely decreasedG4 15-29 Severely decre asedG5 <15 Kidn ey failureThe eGFR was calculated chago g the Chronic Kidney Disease Epidemiology Co llaboration (CKD-EPI) equat ion. Interpretation is based on recommendations of the National Kidney Foundation-Kidn ey Disease Outcomes Qualit y Initiative (NKF-KDOQI) pub lished in 2014. [facility] MethodistAmylase [id number] 00:58:16 Test Item Value Reference Range Interpretation Comments Amylase (test code = 1798-8) 31 U/L 14-97 [facility] MethodistECG ED Preliminary Interpretation - Not an [id number] 00:28:05 Test Item Value Reference Range Interpretation Comments CHECO (test code = CHECO) Gregory Bryan DO 01/31/2020 3:05 AMEC ED Preliminary Interpretation - Not an OrderPerformed by: Gregory Bryan DOAuthorized by: Gregory Bryan DO ECG reviewed by ED Physician in the absence of a cable ferry operator: yes Interpretation: Interpretation: abnormal Rate: ECG rate: 91 ECG rate assessment: normal Rhythm: Rhythm: sinus rhythm Ectopy: Ectopy: none QRS: QRS axis: Normal QRS intervals: NormalConduction: Conduction: normal ST segments: ST segments: NormalT waves: T waves: normal Other findings: Other findings: COLTEN Lab Interpretation Abnormal (test code = 22171-3) Ceasar Peñatre screen [id number] 08:01:34 Test Item Value Reference Range Interpretation Comments Strep screen No beta hemolytic Specimen culture Streptococci InformationSpec imen isolate (test isolated Source: Throat Specimen code = 2246) Site: Not other giraldo specified [place] MethodistGroup A strep, rapid [id number] 03:09:39 Test Item Value Reference Interpretation Comments Range Group A Negative for Group Specimen strep, rapid A Streptococcus InformationS pecimen antigen antigen. Source: ThroatS pecimen result (test Site: Not other giraldo code = specified 3324256) Mcdonough MethodistInfluenza [id number] 16:15:02 Test Item Value Reference Range Interpretation Comments Influenza Negative for Specimen antigen (test Influenza A/B InformationSp ecimen code = 1604) antigen. Source: NaresSp ecimen Site: Other- De tailed Description Req uired Ceasar MethodistXR Foot 3+ Vw [id number] 21:50:16Hm Interface, Radiology Results Incoming - 12/24/2019 9:53 PM CSTEXAMINATION: XR FOOT 3 VW RIGHTCL INICAL HISTORY: fallCOMPARISON: None.IMPRESSION:No acute osseous abnormality or malalignment is noted.[id number] Albrecht
[2020-07-30 00:21] LABS: Absolute Lymphocytes (CBC) 1.2 K/uL (0.7-4.9); Basophils % 1.3 % (0-1.3); Lymphocytes % 23.5 % (15.3-44.8); MPV 8.7 fL (7.6-11.3); RBC Red Blood Cell Count 3.67 M/uL (3.86-4.86)
[2020-07-30 00:25] LABS: Protime INR 1.11
[2020-07-30] MEDS ORDERED: ONDANSETRON 4 MG/2 ML VIAL ONE (00:29)
[2020-07-30] MEDS ORDERED: MORPHINE 4 MG/ML SYR ONE ×2 (00:29→02:57)
[2020-07-30] MEDS ORDERED: FAMOTIDINE 20 MG/2 ML VIAL IV ONE (00:29)
[2020-07-30] MEDS ORDERED: NA CHLORIDE 0.9% 1,000 ML ONE (00:30)
[2020-07-30 00:41] LABS: Urine Blood TRACE (NEG); Urine Glucose NEGATIVE (NEG); Urine Protein 2+ (NEG); Urine Specific Gravity 1.025 (1.005-1.030)
[2020-07-30 00:46] LABS: ALT/SGPT 59 U/L (12-78); AST/SGOT 213 U/L (15-37); Albumin 3.4 g/dL (3.4-5.0); Alkaline Phosphatase 296 U/L (45-117); BUN Blood Urea Nitrogen 4 mg/dL (7-18); Bicarbonate 27 mmol/L (21-32); Bilirubin Direct 0.7 mg/dL (0-0.2); Bilirubin Total 1.7 mg/dL (0.2-1.0); Glucose Level 114 mg/dL (74-106); Lipase 28 U/L (73-393); NT PRO-BNP 74 pg/mL (<125); Potassium 4.2 mmol/L (3.5-5.1); Protein, Total 7.3 g/dL (6.4-8.2); Sodium Level 139 mmol/L (136-145); Troponin (Emerg Dept Use Only) < 0.02 ng/mL (0.0-0.045)
[2020-07-30 00:47] LABS: Magnesium 1.2 mg/dL (1.8-2.4)
[2020-07-30 01:00] LABS: Barbiturates NEGATIVE (NEGATIVE); Benzodiazepines NEGATIVE (NEGATIVE); Cocaine POSITIVE (NEGATIVE); METHAMPHETAM NEGATIVE (NEGATIVE); Methadone NEGATIVE (NEGATIVE); Opiates NEGATIVE (NEGATIVE); Phencyclidine NEGATIVE (NEGATIVE); THC Cannibis NEGATIVE (NEGATIVE)
[2020-07-30] MEDS ORDERED: Magnesium Sulfate 2gm IVPB 2 G/50 ML BAG IV ONE (01:03)
[2020-07-30] MEDS ORDERED: PROMETHAZINE INJ 25 MG/ML AMP ONE ×2 (01:46→04:04)
[2020-07-30] MEDS ORDERED: CIPROFLOXACIN 400mg IV 400 MG/200 ML BAG IV ONE (02:47)
[2020-07-30] MEDS ORDERED: METRONIDAZOLE 500mg IVPB 500 MG/100 ML BAG IV ONE (02:47)
--- NOTE | 2020-07-30 03:23 | EDPHYS ---
Physician Documentation [facility] Name: Suzette Bush Age: 45 yrs Sex: Female : 1975 Arrival Date: 07/29/2020 Time: 23:57 Bed 8 Private MD: ED Physician Francis Crum HPI: 07/30 00:15 This 45 yrs old Female presents to ER via EMS with complaints of Abdominal mh7 Pain. Vomiting. 00:15 The patient presents with abdominal pain in the upper abdomen. Onset: The mh7 symptoms/episode began/occurred yesterday, at 09:00. The symptoms do not radiate. Associated signs and symptoms: Pertinent positives: nausea and vomiting, fever, Pertinent negatives: anorexia, blood in stools, chest pain, constipation, diarrhea, dysuria, headache, hematuria, palpitations, shortness of breath, vaginal discharge, vomiting blood. The symptoms are described as intermittent, sharp, waxing/waning. Modifying factors: The symptoms are alleviated by nothing, the symptoms are aggravated by emotional upset, food. Severity of pain: At its worst the pain was moderate today, in the emergency department the pain is unchanged. The patient has experienced similar episodes in the past, multiple times. 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 - Social history:: Smoking status: Patient reports the use of cigarette tobacco products, denies chronic smoking, but will smoke occasionally. ROS: 00:15 Eyes: Negative for injury, pain, redness, and discharge, ENT: Negative for injury, mh7 pain, and discharge, Neck: Negative for injury, pain, and swelling, Cardiovascular: Negative for chest pain, palpitations, and edema, Respiratory: Negative for shortness of breath, cough, wheezing, and pleuritic chest pain, Back: Negative for injury and pain, : Negative for injury, bleeding, discharge, and swelling, MS/Extremity: Negative for injury and deformity, Skin: Negative for injury, rash, and discoloration, Neuro: Negative for headache, weakness, numbness, tingling, and seizure, Psych: Negative for depression, anxiety, suicide ideation, homicidal ideation, and hallucinations, Allergy/Immunology: Negative for hives, rash, and allergies, Endocrine: Negative for neck swelling, polydipsia, polyuria, polyphagia, and marked weight changes, Hematologic/Lymphatic: Negative for swollen nodes, abnormal bleeding, and unusual bruising. Exam: 00:15 Head/Face: Normocephalic, atraumatic. Eyes: Pupils equal round and reactive to light, mh7 extra-ocular motions intact. Lids and lashes normal. Conjunctiva and sclera are non-icteric and not injected. Cornea within normal limits. Periorbital areas with no swelling, redness, or edema. Neck: Trachea midline, no thyromegaly or masses palpated, and no cervical lymphadenopathy. Supple, full range of motion without nuchal rigidity, or vertebral point tenderness. No Meningismus. Chest/axilla: Normal chest wall appearance and motion. Nontender with no deformity. No lesions are appreciated. Cardiovascular: Regular rate and rhythm with a normal S1 and S2. No gallops, murmurs, or rubs. Normal PMI, no JVD. No pulse deficits. Respiratory: Lungs have equal breath sounds bilaterally, clear to auscultation and percussion. No rales, rhonchi or wheezes noted. No increased work of breathing, no retractions or nasal flaring. 00:15 Back: No spinal tenderness. No costovertebral tenderness. Full range of motion. Skin: Warm, dry with normal turgor. Normal color with no rashes, no lesions, and no evidence of cellulitis. MS/ Extremity: Pulses equal, no cyanosis. Neurovascular intact. Full, normal range of motion. Neuro: Awake and alert, GCS 15, oriented to person, place, time, and situation. Cranial nerves II-XII grossly intact. Motor strength 5/5 in all extremities. Sensory grossly intact. Cerebellar exam normal. Normal gait. 00:15 Constitutional: The patient appears in no acute distress, alert, awake, anxious, uncomfortable. 00:15 Abdomen/GI: Inspection: abdomen appears normal, Bowel sounds: normal, in all quadrants, Palpation: moderate abdominal tenderness, in the epigastric area, right upper quadrant and left upper quadrant, Rectal exam: the exam is deferred, because of patient request, Indicators: McBurney's point is not tender, Vo's sign is negative, Rovsing's sign is negative, Obturator sign is negative, Psoas sign is negative, Liver: no appreciated palpable abnormalities, Hernia: not appreciated. 00:15 Psych: Behavior/mood is pleasant, cooperative, anxious, Affect is animated, Oriented to person, place, time, Patient has no thoughts/intents to harm self or others. Judgement / Insight is normal. Memory is normal. Delusions/hallucinations are not present. 03:17 ECG was reviewed by the Attending Physician. [email or web address] Vital Signs: 07/29 23:57 Pulse 82; Resp 17; Temp 99.1; Pulse Ox 100% ; Weight 46.72 kg; Height 5 ft. 3 in. rv (160.02 cm); Pain 9/10; 07/30 00:04 BP 145 / 97; rv 02:00 BP 139 / 96; Pulse 68; Resp 18; Pulse Ox 100% on R/A; rv 03:00 BP 131 / 86; Pulse 69; Resp 18; Pulse Ox 100% on R/A; rv 04:00 BP 129 / 88; Pulse 71; Resp 17; Temp 98.5; Pulse Ox 100% on R/A; rv 07/29 23:57 Body Mass Index 18.25 (46.72 kg, 160.02 cm) rv MDM: 00:13 Patient medically screened. [email or web address] 03:17 Differential diagnosis: bowel obstruction, diverticulitis, gastritis, gastroesophageal mh7 reflux disease, myocardia ischemia or infarction, non-specific abd pain, pancreatitis, Peptic Ulcer Disease, Pyelonephritis, urinary tract infection. Data reviewed: vital signs, nurses notes, old medical records, lab test result(s), cardiac enzymes, CBC, electrolytes, urinalysis, urine drug screen, EKG, radiologic studies, CT scan, plain films. Data interpreted: Pulse oximetry: on room air is 100 %. Interpretation: normal. Counseling: I had a detailed discussion with the patient and/or guardian regarding: the historical points, exam findings, and any diagnostic results supporting the discharge/admit diagnosis, the presence of at least one elevated blood pressure reading (>120/80) during this emergency department visit, lab results, radiology results, the need for outpatient follow up, to return to the emergency department if symptoms worsen or persist or if there are any questions or concerns that arise at home. Response to treatment: the patient's symptoms have resolved after treatment, the patient's blood pressure is in an acceptable range, mental status has returned to baseline, the patient no longer shows bradycardia, the patient is not short of breath, the patient is not tachycardic, the patient's pain is gone, the patient's temperature has normalized. 07/30 00:07 Order name: Basic Metabolic Panel; Complete Time: 00:47 [facility] 07/30 00:07 Order name: CBC with Diff; Complete Time: 00:47 [facility] 07/30 00:07 Order name: LFT's; Complete Time: 00:47 [facility] 07/30 00:07 Order name: Magnesium; Complete Time: 00:47 [facility] 07/30 00:07 Order name: NT PRO-BNP; Complete Time: 00:47 [facility] 07/30 00:07 Order name: PT-INR; Complete Time: 00:47 [facility] 07/30 00:07 Order name: Troponin (emerg Dept Use Only); Complete Time: 00:47 [facility] 07/30 00:07 Order name: XRAY Chest (1 view) [facility] 07/30 00:08 Order name: Lipase; Complete Time: 00:47 [facility] 07/30 00:15 Order name: UDS; Complete Time: 01:02 [email or web address] 07/30 00:15 Order name: ETOH Level; Complete Time: 00:47 [facility] 07/30 00:34 Order name: Urine Dipstick--Ancillary (enter results); Complete Time: 00:47 [facility] 07/30 00:34 Order name: Urine --Ancillary (enter results); Complete Time: 00:47 [facility] 07/30 00:49 Order name: CT Abd/Pelvis - IV Contrast Only [email or web address] 07/30 00:07 Order name: EKG; Complete Time: 00:08 [facility] 07/30 00:07 Order name: Cardiac monitoring; Complete Time: 00:08 [facility] 07/30 00:07 Order name: EKG - Nurse/Tech; Complete Time: 00:08 [facility] 07/30 00:07 Order name: IV Saline Lock; Complete Time: 00: [facility] 07/30 00:07 Order name: Labs collected and sent; Complete Time: 00:08 [facility] 07/30 00:07 Order name: O2 Per Protocol; Complete Time: 00: [facility] 07/30 00:07 Order name: O2 Sat Monitoring; Complete Time: 00:08 mg2 07/30 00:15 Order name: Urine Dipstick-Ancillary (obtain specimen); Complete Time: 00:30 mh7 07/30 00:15 Order name: Urine Test (obtain specimen); Complete Time: 00:30 mh7 EC:17 Rate is 71 beats/min. Rhythm is regular, Normal Sinus Rhythm. QRS [place] is Normal. [place] mh7 interval is normal. QRS interval is normal. QT interval is normal. Q waves are Present in leads V1, V2. T waves are Normal. No ST changes noted. Clinical impression: NSR w/ Non-specific ST/T Changes. Administered Medications: 00:30 Drug: Pepcid 20 mg Route: IVP; Site: right antecubital; mg2 01:52 Follow up: Response: No adverse reaction mg2 00:31 Drug: morphine 4 mg Route: IVP; Site: right antecubital; mg2 01:52 Follow up: Response: No adverse reaction; Pain is decreased; RASS: Alert and Calm (0) mg2 00:31 Drug: Zofran (Ondansetron) 4 mg Route: IVP; Site: right antecubital; mg2 01:52 Follow up: Response: No adverse reaction mg2 00:31 Drug: NS 0.9% 1000 ml Route: IV; Rate: 1000 ml; Site: right antecubital; mg2 01:52 Follow up: Response: No adverse reaction; IV Status: Completed infusion; IV Intake: mg2 1000ml 00:55 Drug: Magnesium Sulfate 2 grams Route: IVPB; Infused Over: 2 hrs; Site: right mg2 antecubital; 04:04 Follow up: IV Status: Completed infusion; IV Intake: 50ml rv 01:37 Drug: Phenergan 12.5 mg Route: IVP; Site: right antecubital; mg2 02:49 Follow up: Response: No adverse reaction; Marked relief of symptoms mg2 02:43 Drug: Flagyl 500 mg Volume: 100 ml; Route: IVPB; Rate: 200 ml/hr; Infused Over: 30 mg2 mins; Site: right antecubital; 04:04 Follow up: IV Status: Completed infusion; IV Intake: 100ml rv 02:48 Drug: Cipro 400 mg Volume: 200 ml; Route: IVPB; Infused Over: 60 mins; Site: right mg2 antecubital; 04:04 Follow up: IV Status: Completed infusion; IV Intake: 200ml rv 02:49 Drug: morphine 4 mg Route: IVP; Site: right antecubital; mg2 03:56 Follow up: Response: No adverse reaction; Pain is unchanged, physician notified; RASS: sg Drowsy (-1) 03:55 Drug: Phenergan 12.5 mg Route: IVP; Site: right antecubital; sg 04:04 Follow up: Response: Medication administered at discharge. rv Disposition: 07/30/20 03:22 Discharged to Home. Impression: Abdominal Pain, Colitis, Vomiting, Cocaine Abuse. - Condition is Stable. - Discharge Instructions: Stimulant Use Disorder-Cocaine, Nausea and Vomiting, Adult, [id number], Abdominal Pain, Adult, Npic-ns-Yrmt, Clear Liquid Diet, Fies-vz-Gqoo, Colitis, [place] Diet. - Prescriptions for Zofran ODT 4 mg Oral tablet,disintegrating - place 1 tablet by TRANSLINGUAL route every 8 hours As needed; 10 tablet. Bentyl 20 mg Oral Tablet - take 1 tablet by ORAL route every 6 hours As needed; 20 tablet. Flagyl 250 mg Oral Tablet - take 1 tablet by ORAL route every 8 hours for 7 days; 21 tablet. Pepcid 20 mg Oral Tablet - take 1 tablet by ORAL route every 12 hours for 5 days; 10 tablet. Cipro 500 mg Oral Tablet - take 1 tablet by ORAL route every 12 hours for 7 days; 14 tablet. promethazine 25 mg Oral Tablet - take 1 tablet by ORAL route every 6 hours As needed; 8 tablet. - Medication Reconciliation Form, Thank You Letter, Antibiotic Education, Prescription Opioid Use form. - Follow up: Private Physician; When: 1 - 2 days; Reason: Worsening of condition, Recheck today's complaints, Continuance of care, Re-evaluation by your physician. Follow up: Kody Crystal MD; When: 2 - 3 days; Reason: Worsening of condition, Recheck today's complaints. - Problem is new. - Symptoms have improved. Signatures: Dispatcher [employer] EDDav Pascual RN RN sg Danilo Robles RN RN mg2 Johnson Glasgow RN RN rv Francis Crum MD MD mh7 Corrections: (The following items were deleted from the chart) 04:05 03:22 07/30/2020 03:22 Discharged to Home. Impression: Abdominal Pain; Colitis; rv Vomiting; Cocaine Abuse. Condition is Stable. Forms are Medication Reconciliation Form, Thank You Letter, Antibiotic Education, Prescription Opioid Use. Follow up: Private Physician; When: 1 - 2 days; Reason: Worsening of condition, Recheck today's complaints, Continuance of care, Re-evaluation by your physician. Follow up: Kody Crystal; When: 2 - 3 days; Reason: Worsening of condition, Recheck today's complaints. Problem is new. Symptoms have improved. mh7
--- NOTE | 2020-07-30 03:23 | ER ---
Nurse's Notes [facility] Name: Suzette Bush Age: 45 yrs Sex: Female : 1975 Arrival Date: 07/29/2020 Time: 23:57 Bed 8 Private MD: Diagnosis: Abdominal Pain;Colitis;Vomiting;Cocaine Abuse Presentation: 07/29 23:57 Chief complaint: EMS states: CHEST PAIN STARTED 1.5 HOURS AGO, 9/10, SHARP CONTINUOUS, rv LEFT ANTERIOR CHEST WALL, NON RADIATING. WITH HISTORY OF CHRONIC ANXIETY AND DEPRESSION. RUN OUT OF XANAX, TAKEN LAST DOSE THIS MORNING, THEN STARTED HAVING NUMBNESS AND TINGLING SENSATION, WITH NAUSEA AND VOMITING. Coronavirus screen: Client denies travel out of the [place] in the last 14 days. At this time, the client does not indicate any symptoms associated with coronavirus-19. Ebola Screen: No symptoms or risks identified at this time. Initial Sepsis Screen: Does the patient meet any 2 criteria? No. Patient's initial sepsis screen is negative. Does the patient have a suspected source of infection? No. Patient's initial sepsis screen is negative. Risk Assessment: Do you want to hurt yourself or someone else? Patient reports no desire to harm self or others. Onset of symptoms was July 29, 2020 at 22:00. 23:57 Method Of Arrival: EMS: [facility] rv 23:57 Acuity: MARIA ELENA 3 rv Triage Assessment: 07/30 00:01 General: Appears uncomfortable, Behavior is cooperative, anxious. Pain: Complains of rv pain in chest Pain does not radiate. Pain currently is 9 out of 10 on a pain scale. Quality of pain is described as sharp, Pain began 2 hours ago. Is continuous. EENT: No signs and/or symptoms were reported regarding the EENT system. Neuro: Level of Consciousness is awake, alert, obeys commands, Oriented to person, place, time, situation. Cardiovascular: Patient's skin is warm and dry. Rhythm is regular. Respiratory: Airway is patent Breath sounds are clear bilaterally. GI: Abdomen is flat, non-distended, Reports nausea, vomiting. Derm: Skin is intact. 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 - Social history:: Smoking status: Patient reports the use of cigarette tobacco products, denies chronic smoking, but will smoke occasionally. Screenin:03 Abuse screen: Denies threats or abuse. Denies injuries from another. Nutritional rv screening: No deficits noted. Tuberculosis screening: No symptoms or risk factors identified. Fall Risk None identified. Assessment: 00:10 General: Appears in no apparent distress. uncomfortable, Behavior is anxious. Pain: mg2 Complains of pain in chest and epigastric area Pain currently is 6 out of 10 on a pain scale. Quality of pain is described as aching, Pain began gradually, 1 day ago. Is intermittent. Neuro: Level of Consciousness is awake, alert, obeys commands, Oriented to person, place, time, situation. Cardiovascular: Capillary refill < 3 seconds Patient's skin is warm and dry. Respiratory: Airway is patent Respiratory effort is even, unlabored, Respiratory pattern is regular, symmetrical. GI: Reports upper abdominal pain, epigastric pain, nausea, vomiting, since yesterday. : No signs and/or symptoms were reported regarding the genitourinary system. EENT: Derm: Skin is pink, warm \T\ dry. normal. Musculoskeletal: Circulation, motion, and sensation intact. Capillary refill. 02:27 Reassessment: Patient appears in no apparent distress at this time. Patient and/or mg2 family updated on plan of care and expected duration. Pain level reassessed. Patient is alert, oriented x 3, equal unlabored respirations, skin warm/dry/pink. Patient states feeling better. Patient states symptoms have improved. Vital Signs: 07/29 23:57 Pulse 82; Resp 17; Temp 99.1; Pulse Ox 100% ; Weight 46.72 kg; Height 5 ft. 3 in. rv (160.02 cm); Pain 07/21; 07/30 00:04 BP 145 / 97; rv 02:00 BP 139 / 96; Pulse 68; Resp 18; Pulse Ox 100% on R/A; rv 03:00 BP 131 / 86; Pulse 69; Resp 18; Pulse Ox 100% on R/A; rv 04:00 BP 129 / 88; Pulse 71; Resp 17; Temp 98.5; Pulse Ox 100% on R/A; rv 07/29 23:57 Body Mass Index 18.25 (46.72 kg, 160.02 cm) rv ED Course: 07/29 23:57 Patient arrived in ED. rv 23:57 Francis Crum MD is Attending Physician. 7 07/30 00:01 Triage completed. rv 00:01 Arm band placed on right wrist. Patient placed in the treatment room, on a stretcher, rv Patient notified of wait time. 00:03 Patient has correct armband on for positive identification. quality assurance monitor body on. Pulse rv ox on. NIBP on. 00:07 No provider procedures requiring assistance completed. Inserted saline lock: 20 gauge mg2 in right antecubital area, using aseptic technique. Blood collected. 00:08 Johnson Glasgow, MATA is Primary Nurse. rv 01:03 XRAY Chest (1 view) In Process Unspecified. EDMS 01:23 Awaiting radiology results. rv 01:29 CT Abd/Pelvis - IV Contrast Only In Process Unspecified. EDMS 03:21 Kody Crystal MD is Referral Physician. [facility] 04:03 IV discontinued, intact, bleeding controlled, No redness/swelling at site. Pressure rv dressing applied. Administered Medications: 00:30 Drug: Pepcid 20 mg Route: IVP; Site: right antecubital; mg2 01:52 Follow up: Response: No adverse reaction mg2 00:31 Drug: morphine 4 mg Route: IVP; Site: right antecubital; mg2 01:52 Follow up: Response: No adverse reaction; Pain is decreased; RASS: Alert and Calm (0) mg2 00:31 Drug: Zofran (Ondansetron) 4 mg Route: IVP; Site: right antecubital; mg2 01:52 Follow up: Response: No adverse reaction mg2 00:31 Drug: NS 0.9% 1000 ml Route: IV; Rate: 1000 ml; Site: right antecubital; mg2 01:52 Follow up: Response: No adverse reaction; IV Status: Completed infusion; IV Intake: mg2 1000ml 00:55 Drug: Magnesium Sulfate 2 grams Route: IVPB; Infused Over: 2 hrs; Site: right mg2 antecubital; 04:04 Follow up: IV Status: Completed infusion; IV Intake: 50ml rv 01:37 Drug: Phenergan 12.5 mg Route: IVP; Site: right antecubital; mg2 02:49 Follow up: Response: No adverse reaction; Marked relief of symptoms mg2 02:43 Drug: Flagyl 500 mg Volume: 100 ml; Route: IVPB; Rate: 200 ml/hr; Infused Over: 30 mg2 mins; Site: right antecubital; 04:04 Follow up: IV Status: Completed infusion; IV Intake: 100ml rv 02:48 Drug: Cipro 400 mg Volume: 200 ml; Route: IVPB; Infused Over: 60 mins; Site: right mg2 antecubital; 04:04 Follow up: IV Status: Completed infusion; IV Intake: 200ml rv 02:49 Drug: morphine 4 mg Route: IVP; Site: right antecubital; mg2 03:56 Follow up: Response: No adverse reaction; Pain is unchanged, physician notified; RASS: sg Drowsy (-1) 03:55 Drug: Phenergan 12.5 mg Route: IVP; Site: right antecubital; sg 04:04 Follow up: Response: Medication administered at discharge. rv Intake: 01:52 IV: 1000ml; Total: 1000ml. mg2 04:04 IV: 100ml; Total: 1100ml. rv 04:04 IV: 200ml; Total: 1300ml. rv 04:04 IV: 50ml; Total: 1350ml. rv Outcome: 03:22 Discharge ordered by MD. darling 04:03 Discharged to home ambulatory. rv 04:03 Condition: improved 04:03 Discharge instructions given to patient, Instructed on discharge instructions, follow up and referral plans. medication usage, Demonstrated understanding of instructions, follow-up care, medications, Prescriptions given X 6 04:05 Patient left the ED. rv Signatures: Dispatcher [employer] EDMS Dav Mayorga RN RN sg Danilo Robles RN RN mg2 oJhnson Glasgow RN RN rv Francis Crum MD MD mh7
[2020-07-30 04:30] VITALS: O2SAT 100
[2020-07-30 04:35] VITALS: BP 129/88; TEMP 98.5
--- NOTE | 2020-07-30 08:51 | RAD REPORT ---
EXAM DESCRIPTION: Rosanne Single View07/30/2020 1:03 am CLINICAL HISTORY: Chest pain COMPARISON: May 2020 FINDINGS: The lungs appear clear of acute infiltrate. The heart is normal size IMPRESSION: No acute abnormalities displayed
--- NOTE | 2020-07-30 11:56 | RAD REPORT ---
EXAM DESCRIPTION: CT - Abdomen Pelvis W Contrast - 07/30/2020 6:21 am CLINICAL HISTORY: ABD PAIN COMPARISON: 05/24/2020 TECHNIQUE: CT of the abdomen and pelvis performed following IV administration of iodinated contras t. FINDINGS: Lung Bases: The visualized lung bases are clear. Bones: Mild degenerative change of the spine. Abdomen: Liver: Severe hepatomegaly and hepatic steatosis. Gallbladder: Prior cholecystectomy. Spleen, Pancreas, and Adrenal Glands: The spleen, pancreas, and adrenal glands are unremarkable. Kidneys: No hydronephrosis or obstructing calculus. Vasculature: The aorta and IVC have normal caliber and position. The portal vein is patent. The pro ximal visceral and renal arteries are patent. Stomach: The stomach and duodenum have normal course. Other: No free intraperitoneal air. Small amount of free fluid. Pelvis: Bladder: Urinary bladder is unremarkable. Bowel: No dilated loops of large or small bowel. Mild wall thickening of the transverse colon. Appendix: Prior appendectomy. Pelvis: Uterus is not enlarged. IMPRESSION: 1. Mild wall thickening of the transverse colon. This could be seen with nonspecific col itis or hypoalbuminemia. 2. Small amount of free fluid in the abdomen. 3. Severe hepatomegaly and hepatic steatosis. 4. Diverticulosis without evidence of acute diverticulitis. This exam was performed according to our departmental dose-optimization program, which includes autom ated exposure control, adjustment of the mA and/or kV according to patient size and/or use of iterati ve reconstruction technique. Electronically signed by: uSrendra Hays 07/30/2020 1:51 AM CDT Due to temporary technical issues with the PACS/Fluency reporting system, reports are being signed by the in house radiologist without review as a courtesy to ensure prompt reporting. The interpreting r adiologist is fully responsible for the content of the report.
== END 2020-07-30 04:05 | disposition home or self-care (01) ==
LOC: ER 23:52
DX: K52.9 Noninfective gastroenteritis and colitis, unspecified (principal); F14.10 Cocaine abuse, uncomplicated; R11.10 Vomiting, unspecified; F17.210 Nicotine dependence, cigarettes, uncomplicated
CPT/HCPCS: 36415; 71045; 74177; 80048; 80076; 80307; 80320; 81003; 81025; 83690; 83735; 83880; 84484; 85025; 85610; 93005; 96365; 96367; 96375; 99285; J0744; J2405; J2550; J3475; J7030; Q9967

== ENCOUNTER 2021-04-11 16:56 | Emergency (ER) | payer SELFPAY ==
--- OUTSIDE RECORDS SUMMARY | 2021-04-11 17:00 | XMS REPORT | Continuity of Care Document ---
:1975 Author Organization [facility] t Address [address] [place] [address] Care Team Providers Name Role Phone Asked, No Pcp Primary Care Physician Unavailable TESS Attending Clinician Unavailable RED Attending Clinician Unavailable CHALO Attending Clinician Unavailable Problems This patient has no known problems. Allergies, Adverse Reactions, Alerts This patient has no known allergies or adverse reactions. Social History Social Habit Start Date Stop Date Quantity Comments Source History of Cigarette Smoker Ceasar Albrecht tobacco use Tobacco use and 2020-01-31 2020-01-31 Never used [facility] ethodist exposure 00:00:00 00:00:00 Alcohol intake 2020-01-31 2020-01-31 Current drinker [place] [facility] 00:00:00 00:00:00 of alcohol (finding) Alcohol Comment 2019-12-24 2019-12-24 social [place] [facility]ist 00:00:00 00:00:00 Sex [birth year] At [birth year] [place] [facility] 00:00:00 00:00:00 Smoking Status Start Date Stop Date Source Current some day smoker 2020-01-31 00:00:00 [place] [facility] Medications Ordered Filled Start Stop Current Ordering Indication Dosage Frequency Signature Comments Components Source Medication Medication Date Date Medication? Clinician (SIG) Name Name traMADoL 2019-0 Yes acute pain 50mg Q6H Take 50 mg Mcdonough (ULTRAM) 50 3-22 by mouth Meth [place] mg tablet 00:45: every 6 st 37 (six) hours as needed for moderate pain .acute pain. HYDROcodone 2020-0 Yes acute pain 1{tbl} Q6H Take 1 [...] 6 (six) hours as needed for anxiety. Procedures This patient has no known procedures. Plan of Care Planned Activity Planned Date Details Comments Source Future Scheduled 2021-06-11 INFLUENZA VACCINE [place] [facility] Test 00:00:00 [code = INFLUENZA VACCINE] Future Scheduled 1998 Screening for [place] [facility] Test 00:00:00 malignant neoplasm of cervix (procedure) [code = 328415074] Future Scheduled 1995 Hepatitis C [place] [facility] Test 00:00:00 screening (procedure) [code = 886781679] Future Scheduled 1989 COVID-19 VACCINE (1) [place] [facility] Test 00:00:00 [code = COVID-19 VACCINE (1)] Encounters Start End Encounter Admission Attending Care Care Encounter Source Date/Time Date/Time Type Type Clinicians Facility Department ID 2020-01-31 2020-01-31 Emergency PULIDO, [place] [address] [id number] 672 [place] 00:00:00 00:00:00 JOVAN [address] 2020-01-09 2020-01-09 Emergency RED, [place] [address] [id number] 36 [place] 00:00:00 00:00:00 YEYO [address] 2019-12-24 2019-12-24 Emergency CHALO, [facility] [id number] 70 [place] 00:00:00 00:00:00 JAQUELINE [address] 2019-11-09 2019-11-09 Emergency E [facility] [address] [facility] 20:17:00 20:17:00 [facility] Results This patient has no known results.
[2021-04-11 20:34] LABS: Absolute Lymphocytes (CBC) 0.6 K/uL (0.7-4.9); Basophils % 0.7 % (0-1.3); Hematocrit 21.1 % (36.0-45.0); Lymphocytes % 11.3 % (15.3-44.8); RBC Red Blood Cell Count 2.24 M/uL (3.86-4.86)
[2021-04-11] MEDS ORDERED: PANTOPRAZOLE 40 MG INJ ONE (20:35)
[2021-04-11] MEDS ORDERED: NA CHLORIDE 0.9% 1,000 ML ONE (20:36)
[2021-04-11] MEDS ORDERED: NA CHLORIDE 0.9% 250 ML ONE (20:36)
[2021-04-11] MEDS ORDERED: ONDANSETRON 4 MG/2 ML VIAL ONE (20:36)
[2021-04-11 20:39] LABS: ALT/SGPT 29 U/L (12-78); AST/SGOT 128 U/L (15-37); Albumin 3.1 g/dL (3.4-5.0); Alkaline Phosphatase 378 U/L (45-117); BUN Blood Urea Nitrogen 9 mg/dL (7-18); Bicarbonate 30 mmol/L (21-32); Bilirubin Direct 0.9 mg/dL (0-0.2); Bilirubin Total 1.3 mg/dL (0.2-1.0); Glucose Level 170 mg/dL (74-106); Lipase 51 U/L (73-393); Sodium Level 135 mmol/L (136-145)
[2021-04-11 20:40] LABS: Potassium 2.9 mmol/L (3.5-5.1)
[2021-04-11] MEDS ORDERED: MEPERIDINE HCL 25 MG/ML SYR ONE (20:50)
[2021-04-11] MEDS ORDERED: CEFTRIAXONE/SWI 1gm 1 GM/10 ML SYR ONE (21:29)
--- NOTE | 2021-04-11 21:38 | RAD REPORT ---
EXAM DESCRIPTION: CT - Abdomen Pelvis W Contrast - 04/11/2021 9:08 pm CLINICAL HISTORY: vomiting blood;Abd pain COMPARISON: Abdomen Pelvis W Contrast dated 07/30/2020 TECHNIQUE: Biphasic, helical CT imaging of the abdomen and pelvis was performed following 100 ml non -ionic IV contrast. No oral contrast given. All CT scans are performed using dose optimization technique as appropriate and may include automated exposure control or mA/KV adjustment according to patient size. FINDINGS: No suspicious findings in the lung bases. Liver shows diffuse fatty infiltration and a mottled enhancement pattern. No portal vein thrombus. No focal liver lesion. There is capsular nodularity present. A mass of the pancreas is not seen. Relati vely low-density head is present. There may be a small 8 mm cystic mass in the midline body of the pa ncreas. No pancreatic duct dilatation. No splenic abnormality seen. Cholecystectomy clips are present . No biliary tree dilatation. No hydronephrosis or obstructing calculus. No solid mass lesion. Patchy areas of diminished enhanceme nt are seen in both kidneys. These were not seen on the comparison study can have a typical appearanc e for pyelonephritis. This can be correlated with clinical presentation and UA findings. Partially fi lled urinary bladder shows no suspicious finding. No adrenal abnormalities. No uterine or ovarian aminata picious finding. Small follicles are seen on the ovaries. Multiple dilated esophageal varices are present at the GE junction. No acute extravasation of contras t seen. No gastric dilatation or wall thickening. Eldridge of the duodenum are prominent. There are ki ral small bowel loops that show prominent wall pattern. Moderate stool volume is present in the colon . An acute colon process is not seen. Normal appendix is not clearly identifiable. Overall findings a re not considered suspicious for appendicitis. No free air or pneumatosis. Large volume of ascites present. No omental thickening or nodularity co nfirmed. No mass or bulky lymphadenopathy. No suspicious bony findings. IMPRESSION: Abnormal enhancement in the kidneys suspicious for bilateral pyelonephritis. Multiple dilated esophageal varices at the GE junction with no extravasation of contrast to indicate active bleeding. No gastric wall acute finding identified. Mildly dilated eldridge of the duodenum and multiple small bowel loops may represent a duodenitis and no nspecific enteritis. Bowel wall edema can develop with electrolyte abnormalities. Large volume of ascites is present. Fatty infiltration of the liver is present. Findings are suspicio us for cirrhosis or other diffuse hepatic parenchymal disease process.
[2021-04-11 21:39] LABS: Blood Morphology Comment NOT SEEN (NOT SEEN); Platelet Estimate DECR; White Blood Cell Scan OK (OK)
--- NOTE | 2021-04-11 22:31 | ER ---
Nurse's Notes [facility] Name: Suzette Bush Age: 45 yrs Sex: Female : 1975 Arrival Date: 04/11/2021 Time: 17:00 Bed 14 Private MD: Diagnosis: Hematemesis;Unspecified cirrhosis of liver;Esophageal varices with bleeding;Anemia, unspecified Presentation: 04/11 17:41 Chief complaint: Patient states: Constant midsternal CP, non-radiating, feels like [facility] burning. Reports coffee ground emesis mixed with bright red blood and black tarry stools all since Saturday. Pt appears pale in triage. Coronavirus screen: Client denies travel out of the [place] in the last 14 days. At this time, the client does not indicate any symptoms associated with coronavirus-19. Ebola Screen: No symptoms or risks identified at this time. Initial Sepsis Screen: Does the patient meet any 2 criteria? No. Patient's initial sepsis screen is negative. Does the patient have a suspected source of infection? No. Patient's initial sepsis screen is negative. Risk Assessment: Do you want to hurt yourself or someone else? Patient reports no desire to harm self or others. Onset of symptoms was April 08, 2021. Care prior to arrival: None. 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 - Social history:: Smoking status: Patient reports the use of cigarette tobacco products, denies chronic smoking, but will smoke occasionally. - Family history:: not pertinent. - Hospitalizations: : No recent hospitalization is reported. Screenin:50 Abuse screen: Denies threats or abuse. Denies injuries from another. Nutritional 8 screening: No deficits noted. Tuberculosis screening: No symptoms or risk factors identified. Fall Risk None identified. Assessment: 20:38 General: Appears distressed, uncomfortable, Behavior is cooperative, appropriate for 10 age, anxious. Pain: Complains of pain in abdomen Pain radiates to chest Pain currently is 10 out of 10 on a pain scale. Pain began 2-3 days ago. Neuro: No deficits noted. Level of Consciousness is awake, alert, obeys commands, Oriented to person, place, time. Cardiovascular: Reports chest pain, nausea, vomiting, Rhythm is sinus tachycardia. Respiratory: No deficits noted. Airway is patent Trachea midline Respiratory effort is even, unlabored, Respiratory pattern is regular, symmetrical. GI: Reports lower abdominal pain, upper abdominal pain, diarrhea, rectal bleeding, bloody stool, nausea, vomiting. : No deficits noted. No signs and/or symptoms were reported regarding the genitourinary system. EENT: No deficits noted. No signs and/or symptoms were reported regarding the EENT system. Derm: No deficits noted. No signs and/or symptoms reported regarding the dermatologic system. Skin Skin is Skin is pale, Skin temperature is cool. Musculoskeletal: No deficits noted. No signs and/or symptoms reported regarding the musculoskeletal system. 23:00 Reassessment: Patient appears in no apparent distress at this time. No changes from [facility] previously documented assessment. Patient and/or family updated on plan of care and expected duration. Pain level reassessed. 04/12 01:00 Reassessment: Patient appears in no apparent distress at this time. No changes from jm8 previously documented assessment. Patient and/or family updated on plan of care and expected duration. Pain level reassessed. 03:00 Reassessment: Patient appears in no apparent distress at this time. No changes from 8 previously documented assessment. Patient and/or family updated on plan of care and expected duration. Pain level reassessed. 05:18 Reassessment: Patient appears in no apparent distress at this time. No changes from 8 previously documented assessment. Patient and/or family updated on plan of care and expected duration. Pain level reassessed. Vital Signs: 04/11 17:41 BP 115 / 81; Pulse 118; Resp 17; Temp 98.6; Pulse Ox 98% ; Weight 43.09 kg; Height 5 jl7 ft. 3 in. (160.02 cm); Pain 10/10; 20:37 BP 122 / 70; Pulse 104; Resp 16; Pulse Ox 100% on R/A; jm8 21:20 BP 119 / 74; Pulse 104; Resp 16; Pulse Ox 100% on R/A; jm8 23:39 BP 129 / 83; Pulse 85; Resp 16; Pulse Ox 98% on R/A; jm8 04/12 00:40 BP 118 / 73; Pulse 85; Resp 16; Pulse Ox 96% on R/A; jm8 02:45 BP 115 / 77; Pulse 86; Resp 16; Pulse Ox 100% on R/A; jm8 04:17 BP 128 / 79; Pulse 80; Resp 16; Pulse Ox 95% on R/A; jm8 04/11 17:41 Body Mass Index 16.83 (43.09 kg, 160.02 cm) jl7 ED Course: 04/11 17:00 Patient arrived in ED. mr 17:50 Triage completed. jl7 17:51 Arm band placed on right wrist. Patient placed in waiting room, Patient notified of jl7 wait time. 18:00 EKG completed in triage. Results shown to MD. jl7 19:33 Cesar Rosenthal MD is Attending Physician. rn 19:50 Patient has correct armband on for positive identification. Call light in reach. Side jm8 rails up X2. human resources administrator on. Pulse ox on. NIBP on. 20:00 Inserted saline lock: 20 gauge in left antecubital area, using aseptic technique. Blood jm8 collected. Patient maintains SpO2 saturation greater than 95% on room air. 21:08 CT Abd/Pelvis - IV Contrast Only In Process Unspecified. EDMS 22:10 initiated a transfer with Krys Suarez from [facility] [place]. mw2 22:56 [facility] decline due to capacity. mw2 23:03 initiated a transfer with Wendy Oquendo from [facility] Transfer Center. mw2 23:13 Inserted saline lock: 20 gauge 22 gauge in right antecubital area, using aseptic jm8 technique. 23:26 [facility] denied due to capacity. mw2 23:27 initiated a transfer with Genoveva Bermudez from [facility]. mw2 04/12 00:01 [facility] denied due to capacity. mw2 01:03 called [facility] spoke with Genoveva to check on the status of the transfer. mw2 She stated " I paged the GI doctor from [facility] 3 times.". 01:22 Genoveva Bermudez from [facility] called back to inform us that " GI mw2 will be a consult so we just need to page the hospitalist.". 01:47 doc to doc with the Hospitalist from [facility]. [facility] 02:01 administrative approval given by Genoveva Bermudez/ patient has been accepted to [address] ICU unit/ Dr. Quijano accepted the patient in transfer/ report to be called to [phone] or [phone]. 05:20 No provider procedures requiring assistance completed. Patient transferred, IV remains [facility] in place. Administered Medications: 04/11 20:43 Drug: Zofran (Ondansetron) 4 mg Route: IVP; Site: left antecubital; 8 21:06 Follow up: Response: No adverse reaction; Nausea is decreased [facility] 20:44 Drug: ProTONIX (pantoprazole) 40 mg Route: IVP; Site: left antecubital; 8 21:06 Follow up: Response: No adverse reaction [facility] 20:44 Drug: ProTONIX (pantoprazole) 8 mg/hr Route: IV; Rate: 25 ml/hr; Site: left antecubital;8 20:44 Drug: NS 0.9% 1000 ml Route: IV; Rate: 1000 ml; Site: left antecubital; 8 23:14 Follow up: IV Status: Completed infusion 8 20:44 Drug: Demerol (meperidine) 25 mg Route: IVP; Site: left antecubital; 8 21:25 Follow up: Response: No adverse reaction; Pain is decreased [facility] 21:25 Drug: Rocephin (cefTRIAXone) 1 grams Route: IV; Rate: calculated rate; Site: left 8 antecubital; 23:14 Follow up: Response: No adverse reaction; IV Status: Completed infusion [facility] 23:13 Drug: Octreotide Infusion (50 mcg/hr) - (Octreotide 500 mcg, NS 0.9% 500 ml) Route: IV; [facility] Rate: 50 ml/hr; Site: right antecubital; 23:14 Drug: Octreotide 50 mcg Route: IV; Rate: calculated rate; Site: right antecubital; [facility] 23:14 Follow up: Response: No adverse reaction [facility] 23:14 Follow up: IV Status: Completed infusion [facility] 04/12 01:33 Drug: Demerol (meperidine) 12.5 mg Route: IVP; Site: right antecubital; jm8 02:26 Follow up: Response: No adverse reaction jm8 05:03 Drug: Valium (diazepam) 5 mg Route: PO; jm8 05:14 Follow up: Response: No adverse reaction; Anxiety decreased jm8 Outcome: 04/11 22:31 ER care complete, transfer ordered by . medardo 04/12 05:21 Transferred by ground EMS to other acute care facility: [facility]. Transfer jm8 form completed. X-rays sent w/ patient. Condition: good Instructed on the need for transfer. 05:22 Patient left the ED. jm8 Signatures: Dispatcher [employer] Ilene Weller Roman, MD MD rn Leal, Jahala, RN RN [email or web address] Jacinda [facility] Ang Vega RN RN jm8
--- NOTE | 2021-04-11 22:31 | EDPHYS ---
Physician Documentation [facility] Name: Suzette Bush Age: 45 yrs Sex: Female : 1975 Arrival Date: 04/11/2021 Time: 17:00 Bed 14 Private MD: ED Physician Cesar Rosenthal HPI: 04/11 20:15 This 45 yrs old Female presents to ER via Ambulatory with complaints of rn abdominal pain, vomiting blood. 20:15 The patient or guardian reports chest pain that is located primarily in the epigastric rn area. Onset: 3 day(s) ago. The pain does not radiate. Associated signs and symptoms: Pertinent positives: abdominal pain, nausea, vomiting, Pertinent negatives: cough, diaphoresis, shortness of breath, syncope. 20:17 The patient presents with abdominal pain in the epigastric area, in the upper abdomen. rn Onset: The symptoms/episode began/occurred 3 day(s) ago. The symptoms do not radiate. Associated signs and symptoms: Pertinent positives: blood in stools, nausea, vomiting, vomiting blood, Pertinent negatives: fever. Modifying factors: The symptoms are alleviated by nothing, the symptoms are aggravated by food. Severity of pain: At its worst the pain was mild in the emergency department the pain is unchanged. The patient has not experienced similar symptoms in the past. The patient has not recently seen a physician. Reports upper abd pain and vomiting blood and coffee grounds for 3 days, took phenergan from neighbor today so vomiting stopped early in morning, but passing dark stool. No syncope/sob. + generalized weakness. Does not take blood thinner. No hx of cirrhosis or known liver problems. + drinker 2x/week.. 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 - Social history:: Smoking status: Patient reports the use of cigarette tobacco products, denies chronic smoking, but will smoke occasionally. - Family history:: not pertinent. - Hospitalizations: : No recent hospitalization is reported. ROS: 20:17 Constitutional: Negative for fever, chills, and weight loss, Eyes: Negative for injury, rn pain, redness, and discharge, Neck: Negative for injury, pain, and swelling, Cardiovascular: Negative for chest pain, palpitations, and edema, Respiratory: Negative for shortness of breath, cough, wheezing, and pleuritic chest pain, Abdomen/GI: + abd pain and nausea/vomiting, + blood in emesis Back: Negative for injury and pain, : Negative for injury, bleeding, discharge, and swelling, MS/Extremity: Negative for injury and deformity, Skin: Negative for injury, rash, and discoloration, Neuro: Negative for headache,numbness, tingling, and seizure. Exam: 20:17 Constitutional: Very thin female, no acute distress, seems anxious and tearful. rn Head/Face: Normocephalic, atraumatic. Eyes: Periorbital areas with no swelling, redness, or edema. Cardiovascular: Tachycardic, regular Respiratory: No increased work of breathing, no retractions or nasal flaring. Abdomen/GI: soft, + epigastric tenderness, + prominence of lower abd wall veins. Skin: Warm, dry MS/ Extremity: Pulses equal, no cyanosis. Neuro: Awake and alert, GCS 15 Vital Signs: 17:41 BP 115 / 81; Pulse 118; Resp 17; Temp 98.6; Pulse Ox 98% ; Weight 43.09 kg; Height 5 jl7 ft. 3 in. (160.02 cm); Pain 10/10; 20:37 BP 122 / 70; Pulse 104; Resp 16; Pulse Ox 100% on R/A; jm8 21:20 BP 119 / 74; Pulse 104; Resp 16; Pulse Ox 100% on R/A; jm8 23:39 BP 129 / 83; Pulse 85; Resp 16; Pulse Ox 98% on R/A; jm8 04/12 00:40 BP 118 / 73; Pulse 85; Resp 16; Pulse Ox 96% on R/A; 8 02:45 BP 115 / 77; Pulse 86; Resp 16; Pulse Ox 100% on R/A; 8 04:17 BP 128 / 79; Pulse 80; Resp 16; Pulse Ox 95% on R/A; 8 04/11 17:41 Body Mass Index 16.83 (43.09 kg, 160.02 cm) [facility] MDM: 04/11 19:33 Patient medically screened. rn 21:43 ED course: no answer by Dr. Lott when called. BLood products ordered. Octreotide rn ordered. Will try Dr. Lott again for active esophageal bleed.. 22:04 ED course: Dr. Lott did not answer second phone call. Decision made to transfer rn patient given active bleeding and unable to get a hold of air conditioning manager physician. . 22:29 Differential diagnosis: gastroesophageal reflux disease, GI Bleed, non-specific abd rn pain, pancreatitis, Peptic Ulcer Disease, esophageal varices, gastric varices. Data reviewed: vital signs, nurses notes, lab test result(s), radiologic studies, CT scan, and as a result, I will admit patient. Counseling: I had a detailed discussion with the patient and/or guardian regarding: the historical points, exam findings, and any diagnostic results supporting the discharge/admit diagnosis, lab results, radiology results, the need to transfer to another facility, for higher level of care, Unable to get a hold of Dr. Lott in timely fashion.. Response to treatment: the patient's symptoms have mildly improved after treatment. 22:57 ED course: [facility] declined 2/2 at capacity.. rn 23:27 ED course: [facility] declined transfer. Trying [facility].. rn 04/12 01:42 ED course: Still awaiting callback from [facility], abhijit rn [facility] declined. . 01:49 ED course: Accepted for transfer to [facility]. . rn 04/11 19:56 Order name: Basic Metabolic Panel; Complete Time: 20:52 04/11 19:56 Order name: CBC with Diff; Complete Time: 21:41 04/11 19:56 Order name: Hepatic Function; Complete Time: 20:52 04/11 19:56 Order name: Lipase; Complete Time: 20:52 04/11 19:56 Order name: Type And Screen rn 04/11 20:38 Order name: CBC Smear Scan; Complete Time: 21:41 [facility] 04/11 22:17 Order name: COVID-19 : Document "Date of Symptom Onset" if Symptomatic. mw2 04/11 22:49 Order name: Packed RBCs (Additional Unit) [facility] 04/11 23:36 Order name: Fresh Frozen Plasma [facility] 04/11 19:56 Order name: IV Saline Lock; Complete Time: 20:07 04/11 19:56 Order name: Labs collected and sent; Complete Time: 20:07 rn 04/11 19:56 Order name: CT Abd/Pelvis - IV Contrast Only; Complete Time: 21:41 rn 04/11 19:56 Order name: Urine Test (obtain specimen) rn 04/11 23:44 Order name: SARS-COV-2 RT PCR; Complete Time: 01:47 EDMS 04/12 03:30 Order name: ABO/RH no charge EDND 04/11 19:56 Order name: Urine Dipstick-Ancillary (obtain specimen) rn Administered Medications: 04/11 20:43 Drug: Zofran (Ondansetron) 4 mg Route: IVP; Site: left antecubital; [facility] 21:06 Follow up: Response: No adverse reaction; Nausea is decreased [facility] 20:44 Drug: ProTONIX (pantoprazole) 40 mg Route: IVP; Site: left antecubital; 8 21:06 Follow up: Response: No adverse reaction [facility] 20:44 Drug: ProTONIX (pantoprazole) 8 mg/hr Route: IV; Rate: 25 ml/hr; Site: left antecubital;8 20:44 Drug: NS 0.9% 1000 ml Route: IV; Rate: 1000 ml; Site: left antecubital; 8 23:14 Follow up: IV Status: Completed infusion 8 20:44 Drug: Demerol (meperidine) 25 mg Route: IVP; Site: left antecubital; jm8 21:25 Follow up: Response: No adverse reaction; Pain is decreased 8 21:25 Drug: Rocephin (cefTRIAXone) 1 grams Route: IV; Rate: calculated rate; Site: left 8 antecubital; 23:14 Follow up: Response: No adverse reaction; IV Status: Completed infusion [facility] 23:13 Drug: Octreotide Infusion (50 mcg/hr) - (Octreotide 500 mcg, NS 0.9% 500 ml) Route: IV; [facility] Rate: 50 ml/hr; Site: right antecubital; 23:14 Drug: Octreotide 50 mcg Route: IV; Rate: calculated rate; Site: right antecubital; 8 23:14 Follow up: Response: No adverse reaction [facility] 23:14 Follow up: IV Status: Completed infusion [facility] 04/12 01:33 Drug: Demerol (meperidine) 12.5 mg Route: IVP; Site: right antecubital; jm8 02:26 Follow up: Response: No adverse reaction jm8 05:03 Drug: Valium (diazepam) 5 mg Route: PO; jm8 05:14 Follow up: Response: No adverse reaction; Anxiety decreased jm8 Disposition: 04/11/21 22:31 Transfer ordered to [facility]. Diagnosis are Hematemesis, Unspecified cirrhosis of liver, Esophageal varices with bleeding, Anemia, unspecified. - Reason for transfer: Higher level of care. - Accepting physician is . - Condition is Stable. - Problem is new. - Symptoms have improved. Critical care time excluding procedures: :49 Critical care time: Bedside Care: 25 minutes, Consultation: 5 minutes. Total time: 30 rn minutes Signatures: Dispatcher [employer] EDMS Cesar Rosenthal MD MD rn Leal, Jahala, RN RN jl7 Ang Vega RN RN jm8 Corrections: (The following items were deleted from the chart) 04/11 22:21 22:18 CORONAVIRUS ordered. EDND EDMS 22:41 22:18 CORONAVIRUS ordered. EDND EDMS 04/12 01:49 04/11 22:31 04/11/2021 22:31 Transfer ordered to [facility]. rn Diagnosis is Hematemesis; Unspecified cirrhosis of liver; Esophageal varices with bleeding; Anemia, unspecified. Reason for transfer: Higher level of care. Accepting physician is . Condition is Stable. Problem is new. Symptoms have improved. rn 04/12 05:22 01:49 04/11/2021 22:31 Transfer ordered to [facility]. Diagnosis is jm8 Hematemesis; Unspecified cirrhosis of liver; Esophageal varices with bleeding; Anemia, unspecified. Reason for transfer: Higher level of care. Accepting physician is . Condition is Stable. Problem is new. Symptoms have improved. rn
[2021-04-11] MEDS ORDERED: OCTREOTIDE ACETATE 100 MCG/ML ONE (23:17)
[2021-04-11] MEDS ORDERED: NA CHLORIDE 0.9% 500 ML ONE (23:17)
[2021-04-12] MEDS ORDERED: MEPERIDINE HCL 25 MG/ML SYR ONE (01:44)
[2021-04-12] MEDS ORDERED: DIAZEPAM 5 MG TABLET ONE (05:19)
[2021-04-12 05:47] VITALS: TEMP 98.6
[2021-04-12 05:56] VITALS: BP 128/79; O2SAT 95
--- NOTE | 2021-04-12 11:56 | EKG ---
Test Date: 2021-04-11 Test Time: 18:04:16 Conference Director: SANDRA MEASUREMENT RESULTS: Intervals: Rate: 100 WI: 128 QRSD: 58 QT: 342 QTc: 441 [place]: P: 73 WI: 128 QRS: 36 T: 28 INTERPRETIVE STATEMENTS: Normal sinus rhythm Normal ECG Compared to ECG 07/30/2020 01:29:32 Myocardial infarct finding no longer present Electronically Signed On 04-12-21 11:53:48 CDT by Feng Beach
== END 2021-04-12 05:22 | disposition short-term general hospital (02) ==
LOC: ER 16:56
PROC: 30233N1 Transfusion of Nonautologous Red Blood Cells into Peripheral Vein, Percutaneous Approach (ICD-10-PCS; principal; 2021-04-12)
DX: K74.60 Unspecified cirrhosis of liver (principal); I85.11 Secondary esophageal varices with bleeding; D50.0 Iron deficiency anemia secondary to blood loss (chronic); F17.210 Nicotine dependence, cigarettes, uncomplicated; Z20.822 Contact with and (suspected) exposure to COVID-19
CPT/HCPCS: 36415; 74177; 80048; 80076; 83690; 85025; 86850; 86900; 86901; 93005; 99285; C9113; J0696; J2175; J2354; J2405; J7030; J7040; J7050; P9016; Q9967; U0003

== ENCOUNTER 2022-07-23 11:15 | Emergency (ER) | payer OTHER, SELFPAY ==
--- OUTSIDE RECORDS SUMMARY | 2022-07-23 11:19 | XMS REPORT | Continuity of Care Document ---
:1975 Author Organization [facility] t Address [address] [place] [address] Care Team Providers Name Role Phone Asked, No Pcp Primary Care Physician Unavailable ZOEY GARCIA Attending Clinician Unavailable Zeoy Garcia MD Attending Clinician [phone] JOVAN PULIDO Attending Clinician Unavailable YEYO MOON Attending Clinician Unavailable JAQUELINE ISABEL Attending Clinician Unavailable Problems This patient has no known problems. Allergies, Adverse Reactions, Alerts Allergy Allergy Status Severity Reaction(s) Onset Inactive Treating Comm ents Source Name Type Date Date Clinician NO KNOWN Allergy Active [facility] Social History Social Habit Start Date Stop Date Quantity Comments Source History of Occasional tobacco Method ist tobacco use smoker Hospital Alcohol intake 2020-01-31 2020-01-31 Current drinker of [facility] 00:00:00 00:00:00 alcohol (finding) Hospita l Tobacco use and 2019-12-24 2019-12-24 Smokeless tobacco [facility] exposure 00:00:00 00:00:00 non-user Hospital Alcohol Comment 2019-12-24 2019-12-24 social [facility] 00:00:00 00:00:00 Hospital Sex Assigned At [birth year] Roman Catholic 00:00:00 00:00:00 Hospital Smoking Status Start Date Stop Date Source Occasional tobacco smoker 2019-12-24 00:00:00 [facility] Medications Ordered Filled Start Stop Current Ordering Indication Dosage Frequency Signature Comments Components Source Medication Medication Date Date Medication? Clinician (SIG) Name Name cyclobenzap Yes 10mg Take [address] [facility] [address] [facility] 7-10 tablet (10 [facility] (FLEXERIL) 00:00: mg total) Me dical 10 MG 00 by mouth 3 Center tablet (three) times daily as needed for Muscle spasms. promethazin [address] [facility] 7-10 suppositor [facility] (PHENERGAN) 00:00: y (25 mg Me dical 25 MG 00 total) Center suppository rectally every 6 (six) hours as needed for Nausea. ibuprofen 0 202- No 800mg Q.[id number] Take [address] (ADVIL,MOTR 7-10 07-20 [id number] tablet [facility] [place]) 800 MG 00:00: 23:59 3D (800 mg Med ical tablet 00 :00 total) by Center mouth 3 (three) times daily for 10 days. traMADoL 2020-0 Yes [id number] 50mg Q6H Take 50 mg Me [facility] (ULTRAM) 50 3-[address] mg tablet 00:45: every 6 Hospi ta 37 (six) l hours as needed for moderate pain .acute pain. HYDROcodone 2020-0 Yes [id number] 1{tbl} Q6H Take 1 M ethodi -acetaminop 3-[address] hen (NORCO) 00:45: mouth Hospi ta 7.5-325 mg 37 every 6 l per tablet (six) hours as needed for moderate pain .acute pain. diazePAM 2020-0 Yes 5mg Q6H Take 5 mg Meth [place] (VALIUM) 5 3-[address] MG tablet 00:31: every 6 Hospi ta 08 (six) l hours as needed for anxiety. ALPRAZolam 2020-0 Yes .5mg QD Take 0.5 Met [facility] (XANAX) 0.5 3-[address] MG tablet 00:31: mouth Hospita 08 nightly as l needed for anxiety. hydrOXYzine 2020-0 Yes 25mg Q6H Take 1 [facility] [place] (ATARAX) 25 3-22 tablet (25 st MG tablet 00:00: mg total) Hos avis 00 by mouth l every 6 (six) hours as needed for anxiety. Vital Signs Vital Name Observation Time Observation Value Comments Source HEIGHT 2022-05-19 21:31:00 160 cm WEIGHT 2022-05-19 21:31:00 50.803 kg HEIGHT 2022-05-19 21:31:00 160 cm WEIGHT 2022-05-19 21:31:00 50.803 kg HEIGHT 2022-05-19 21:31:00 160 cm WEIGHT 2022-05-19 21:31:00 50.803 kg Diastolic blood 2022-05-20 02:38:00 82 mm[Hg] [facility] Heart rate 2022-05-20 02:38:00 97 /min [facility] Body temperature 2022-05-20 02:38:00 37.33 Cammy [facility] Respiratory rate 2022-05-20 02:38:00 18 /min [facility] Oxygen saturation in 2022-05-20 02:38:00 100 /min [facility] Arterial blood by Medical Ce nter Pulse oximetry Systolic blood 2022-05-20 02:38:00 120 mm[Hg] [facility] Body height 2022-05-19 21:31:00 160 cm [facility] Body weight 2022-05-19 21:31:00 50.803 kg [facility] BMI 2022-05-19 21:31:00 19.84 kg/m2 [facility] Procedures Procedure Date / Time Performed Performing Clinician Sour e URINALYSIS W/ MICROSCOPIC 2022-05-19 23:53:00 Zoey Garcia [facility] BLOOD CULTURE 2022-05-19 23:00:[address] [facility] BLOOD CULTURE 2022-05-19 22:54:[address] [facility] SARS-COV2/INFLUENZA/RSV 2022-05-19 22:47:00 Jose [facility] RT-PCR [facility] BLOOD GAS, VENOUS 2022-05-19 22:45:[address] [facility] HCG, QUANTITATIVE, 2022-05-19 22:44:[address] [facility] CBC W/PLT COUNT & AUTO 2022-05-19 22:44:00 Jose [facility] LACTIC ACID, VENOUS 2022-05-19 22:44:00 [facility] COMPREHENSIVE METABOLIC 2022-05-19 22:44:00 [facility] PANEL [facility] PROTHROMBIN TIME/INR 2022-05-19 22:44:00 [facility] 2022-05-19 22:44:00 [place], [facility] LIPASE 2022-05-19 22:44:00 [facility] CBC W/PLT COUNT & AUTO 2022-05-19 22:44:00 [facility] XR CHEST 1 VIEW PORTABLE 2022-05-19 22:01:00 Zoey Garcia I [facility] / BEDSIDE [facility] Plan of Care Planned Activity Planned Date Details Comments Source Future Scheduled 2022-07-23 HEPATITIS B VACCINES Met [facility] Test 11:18:34 (1 of 3 - 3-dose series) [code = HEPATITIS B VACCINES (1 of 3 - 3-dose series)] Future Scheduled 2022-07-23 COVID-19 VACCINE (#1) [facility] Test 11:18:34 [code = COVID-19 VACCINE (#1)] Future Scheduled 2022-07-23 Pneumococcal Vaccine: [facility] Test 11:18:34 Pediatrics (0 to 5 Years) and At-Risk Patients (6 to 64 Years) (1 - PCV) [code = Pneumococcal Vaccine: Pediatrics (0 to 5 Years) and At-Risk Patients (6 to 64 Years) (1 - PCV)] Future Scheduled 2022-07-23 Hepatitis C screening [facility] Test 11:18:34 (procedure) [code = 942580570] Future Scheduled 2022-07-23 Screening for [facility] Test 11:18:34 malignant neoplasm of cervix (procedure) [code = 364120011] Future Scheduled 2022-07-23 BREAST CANCER [facility] Test 11:18:34 SCREENING [code = BREAST CANCER SCREENING] Future Scheduled 2022-07-23 INFLUENZA VACCINE [facility] Test 11:18:34 [code = INFLUENZA VACCINE] Future Scheduled 2022-07-12 INFLUENZA VACCINE (#1) [facility] Test 00:00:00 [code = INFLUENZA Medical Ce nter VACCINE (#1)] Future Scheduled 2021-11-[address] [facility] Test 00:00:00 (12+) [code = Medical Center DEPRESSION SCREENING (12+)] Future Scheduled [address] [facility] Test 00:00:00 malignant neoplasm of Medica l Center cervix (procedure) [code = 137159531] Future Scheduled 1996 DTAP/TDAP/TD VACCINES [facility] Test 00:00:00 (1 - Tdap) [code = Medical C enter DTAP/TDAP/TD VACCINES (1 - Tdap)] Future Scheduled 1995 HEPATITIS C SCREENING [facility] Test 00:00:00 [code = HEPATITIS C Medical Center SCREENING] Future Scheduled 1978-01-24 COVID-19 VACCINE (#1) [facility] Test 00:00:00 [code = COVID-[address] VACCINE (#1)] Encounters Start End Encounter Admission Attending Care Care Encounter Source Date/Time Date/Time Type Type Clinicians Facility Department ID 2022-05-19 2022-05-20 Emergency ER [facility] Emergency [id number] [facility] 21:48:00 02:41:00 [facility] 2022-05-19 2022-05-20 Emergency Jose, [facility] [id number] 21:48:00 02:41:00 [facility] 2022-05-19 2022-05-19 Travel [facility] [id number] [facility] 00[facility]00 [facility] 2020-01-31 2020-01-31 Emergency PULIDO, [facility] [id number] [place] 00:00:00 00:00:[address] 2020-01-09 2020-01-09 Emergency RED, [facility] [id number] [place] 00:00:00 00:00:00 YEYO [address] 2019-12-24 2019-12-24 [facility] 064 [id number] [place] 00:00:00 00:00:00 JAQUELINE Lara Method i 2019-11-09 2019-11-09 Emergency E [facility] [id number] [facility] 20:17:00 20:17:00 melanie Riddle [facility] l [facility] l Results Test Description Test Time Test Comments Results Result Comments Source BLOOD CULTURE 2022-05-25 01:00:10 Test Item Value Reference Range Interpretation Comme nts CULTURE (BEAKER) (test code = 1095) No growth in 5 days The specimen volume collected for this blood culture was below the optimum (10 mL per bottle or 20 mL total). Use of lower volumes may adversely affect recovery and/or detection times of some organisms.BLOOD [id number] 01:00:10 Test Item Value Reference Range Interpretation Comments CULTURE (BEAKER) (test No growth in 5 days code = 1095) The specimen volume collected for this blood culture was below the optimum (10 mL per bottle or 20 mL total). Use of lower volumes may adversely affect recovery and/or detection times of some organisms.Urinalysis w/Microscopic 2022-05-20 00:52:30 Test Item Value Reference Range Interpretation Comments Color, UA (test code Light Yellow = 5778-6) Clarity, UA (test Clear code = 5767-9) Specific Hickman, UA 1.010 1.001-1.035 (test code = 5811-5) pH, UA (test code = 6.0 5.0-8.0 5803-2) Protein, UA (test Negative Negative code = 84312-5) Glucose, UA (test Negative Negative code = 365) Ketones, UA (test 10 mg/dL Negative A code = 2514-8) Bilirubin, UA (test Negative Negative code = 84117-2) Blood, UA (test code Large Negative A = 96113-5) Nitrite, UA (test Negative Negative code = 5802-4) Leukocytes, UA (test Negative Negative code = 5799-2) Urobilinogen, UA 0.2 mg/dL 0.2-1.0 (test code = 97252-7) RBC, UA (test code = 14 See_Comment [Autom ated 79057-2) message] The system which generated this result transmit mariela reference range : /HPF. The reference range was not used to interpret this result as normal/abnormal . WBC, UA (test code = <1 See_Comment [Autom ated 5821-4) message] The system which generated this result transmit mariela reference range : /HPF. The reference range was not used to interpret this result as normal/abnormal . Bacteria, UA (test None Seen code = 21254-2) Squam Epithel, UA 4 See_Comment [Automate d (test code = 75521-6) messag e] The system which generated this result transmit mariela reference range : /HPF. The reference range was not used to interpret this result as normal/abnormal . Crystals, Urine (test None Seen code = 85350-4) Specimen Source (test code = 2795) CHECO (test code = CHECO) Blanket Maker ID - [auto]Blanket Maker ID - tech Lab Interpretation Abnormal (test code = 54374-6) [facility] [id number] 00:52:30 Test Item Value Reference Range Interpretation Comments COLOR (BEAKER) (test code = 470) Light Yellow CLARITY (BEAKER) (test code = Clear 469) SPECIFIC GRAVITY UA (BEAKER) 1.010 1.001-1.035 (test code = 468) PH UA (BEAKER) (test code = 467) 6.0 5.0-8.0 PROTEIN UA (BEAKER) (test code = Negative Negative 464) GLUCOSE UA (BEAKER) (test code = Negative Negative 365) KETONES UA (BEAKER) (test code = 10 mg/dL Negative A 371) BILIRUBIN UA (BEAKER) (test code Negative Negative = 462) BLOOD UA (BEAKER) (test code = Large Negative A 461) NITRITE UA (BEAKER) (test code = Negative Negative 465) LEUKOCYTE ESTERASE UA (BEAKER) Negative Negative (test code = 466) UROBILINOGEN UA (BEAKER) (test 0.2 mg/dL 0.2-1.0 code = 463) RBC UA (BEAKER) (test code = 14 /HPF 519) WBC UA (BEAKER) (test code = < /HPF 520) BACTERIA (BEAKER) (test code = None Seen 517) SQUAMOUS EPITHELIAL (BEAKER) 4 /HPF (test code = 516) CRYSTALS, URINE (BEAKER) (test None Seen code = 1521) SOURCE(BEAKER) (test code = 2795) Blanket Maker ID - [auto]Blanket Maker ID - techSARS-CoV2/Influenza/RSV RT-PCR (Symptomatic ONLY)2022-05-20 00:50:53 Test Item Value Reference Interpretation Comments Range SARS-COV2/RT-PCR Positive Negative AA The SARS-Co V-2 (test code = target nucleic 82197-6) acids are detec mariela in this specime n. The presence SARS-CoV-2 nucl eic acids cannot ru le out co-infectio ns or disease caus ed by other viral or bacterial pathogens. As w ith any molecular t est, mutations withi n the target concetta ons of the Xpert Xp ress SARS-CoV-2 test could affect pr cyndi and/or probe binding resulti ng in failure to detect the pres ence of virus or the virus being detected less predictably. Fa lse negative result s may occur if vi trinh is present at levels below th e analytical limi t of detection. This SARS CoV-2 test is a rapid, real-t vi RT-PCR test intended for th e qualitative detection of nucleic acid fr om SARS-CoV-2 in a nasopharyngeal swab specimen collec mariela from individual s suspected of COVID-19 by the ir healthcare provider. Resul ts from the Xpert Xpress SARS-CoV -2 test should be correlated with the clinical histor y, epidemiological data, and other data available to the clinician evaluating the patient. Viral nucleic acid ma y persist in vivo , independent of virus viability . Detection of analyte target( s) does not imply that the correspondi ng virus(es) are infectious or a re the causative agents for clin ical symptoms. Influenza A RT-PCR Negative Negative The Flu A target (test code = [place] [address]-7) not detected in this specimen. Influenza B RT-PCR Negative Negative The Flu B target (test code = [place] 34331-7) not detected in this specimen. RSV by RT-PCR (test Negative Negative The RSV target code = 84413-8) nucleic acid s are not detected in this specimen. CHECO (test code = The presence of CHECO) SARS-CoV-2/FLU/RSV viral nucleic acids cannot rule out co-infections or disease caused by other viral or bacterial pathogens. As with any molecular test, mutations within the target regions of the Xpert Xpress SARS-CoV-2/Flu/RSV test could affect primer and/or probe binding resulting in failure to detect the presence of virus or the virus being detected less predictably. False negative results may occur if the virus is present at levels below the analytical limit of detection in this specimen. This Xpert Xpress SARS-CoV-2/Flu/RSV test is a rapid, real-time RT-PCR test intended for the qualitative detection of nucleic acid from Xpert Xpress SARS-CoV-2/Flu/RSV in a nasopharyngeal swab specimen collected from individuals suspected of Xpert Xpress SARS-CoV-2/Flu/RSV by their healthcare provider. Results from ramón Xpert Xpress SARS-CoV-2/Flu/RSV test should be correlated with the clinical history, epidemiological data, and other data available to the clinician evaluating the patient. Viral nucleic acid may persist in vivo, independent of virus viability. Detection of analyte target(s) does not imply that the corresponding virus(es) are infectious or are the causative agents for clinical symptoms. This test has not been Food and Drug Administration (FDA) cleared or approved and has been authorized by FDA under an Emergency Use Authorization (EUA). This EUA will be effective until the declaration that circumstances exist justifying the authorization of the emergency use of in vitro diagnostic tests for detection and/or diagnosis of COVID-19 is terminated under Section 564(b)(2) of the Act or the EUA is revoked under Section 564(g) of the Act. Fact Sheet for Healthcare Providers:https://w [employer]/Docu ments/Xpert%20Xpres s%20SARS%20CoV-2/Fa ct%20Sheets/302-390 2%43FJYL-GDF-3%20HE ALTHCARE%20PROVIDER S%20FACT%20SHEET.pd f Fact Sheet for Healthcare Patients:https://jd [employer]/Docum ents/Xpert%20Xpress %20SARS%20Cov-2/Fac t%20Sheets/302-3801 %86RTGZ-KIY-2%20PAT IENT%20FACT%20SHEET .pdf Lab Interpretation Abnormal (test code = 21460-3) [facility]RSV [id number] 00:50:53 Test Item Value Reference Range Interpretation Comments SARS-COV2/RT-PCR Positive Negative AA The SARS-Co V-2 target (test code = nucleic acids a re ) detected in thi s specimen. The p resence SARS-CoV-2 nucl eic acids cannot rule out co-infections o r disease caused by other viral or bacterial patho gens. As with any molecu lar test, mutations withi n the target regions of the Xpert Xpress SA RS-CoV-2 test could affe ct primer and/or probe bi nding resulting in fa ilure to detect the pres ence of virus or the vi trinh being detected less predictably. Fa lse negative result s may occur if virus is present at levels below the analytical limi t of detection. This SARS CoV-2 test is a rapid, real-time RT-PC R test intended for th e qualitative det ection of nucleic acid fr om SARS-CoV-2 in a nasopharyngeal swab specimen collec mariela from individuals aminata pected of COVID-19 by the [facility] ide. Results from th e Xpert Xpress SARS-CoV -2 test should be corre lated with the clinical hi story, epidemiological data, and other data avai lable to the clinician e valuating the patient. Vi ral nucleic acid ma y persist in vivo, indepe ndent of virus viability . Detection of an alyte target(s) does not imply that the corres ponding virus(es) are i nfectious or are the caus ative agents for clin ical symptoms. INFLUENZA A RT-PCR Negative Negative The Flu A target nucleic (test code = acids are not d etected in 19101215) this specimen. INFLUENZA B RT-PCR Negative Negative The Flu B target nucleic (test code = acids are not d etected in 19101216) this specimen. RSV RT-PCR (test Negative Negative The RSV tar get nucleic code = 19101217) acids are no t detected in this specimen. The presence of SARS-CoV-2/FLU/RSV viral nucleic acids cannot rule out co- infections or disease caused by other viral or bacterial pathogens. As with any molecular test, mutations within the target regions of the Xpert Xpress SARS-CoV-2/Flu/RSV test could affect primer and/or probe binding resulting in failure to detect the presence of virus or the virus being detected less predictably. False negative results may occur if the virus is present at levels below the analytical limit of detection in thisspecimen.This Xpert Xpress SARS-CoV-2/Flu/RSV test is a rapid, real-time RT-PCR test intended for the qualitative detection of nucleic acid from Xpert Xpress SARS-CoV-2/Flu/RSV in a nasopharyngeal swabspecimen collected from individuals suspected of Xpert Xpress SARS-CoV-2/Flu/RSV by their healthcareprovider. Results from the [facility] Xpert Xpress SARS-CoV-2/Flu/RSV test should be correlated with the clinical history, epidemiological data, and other data available to the clinician evaluating the patient. Viral nucleic acid may persist in vivo, independent of virus viability. Detection of analyte target(s)does not imply that the corresponding virus(es) are infectious or are the causative agents for clinical symptoms.This test has not been Food and Drug Administration (FDA) cleared or approved and has been authorized by FDA under an Emergency Use Authorization (EUA). This EUA will be effective until thedeclaration that circumstances exist justifying the authorization of the emergency use of in vitro diagnostic tests for detection and/or diagnosis of COVID-19 is terminated under Section 564(b)(2) of the Act or the EUA is revoked under Section 564(g) of the Act.Fact Sheet for Healthcare Providers:https ://www.[employer]/Documents/Xpert%20Xpress%20SARS%20CoV-2/Fact%20Sheets/302-390 2%42YLAJ-JQE-5%20HEALTHCARE%20PROVIDERS%20FACT%20SHEET.pdfFact Sheet for Healthcare Patients:https://www.[employer]/Docum ents/Xpert%20Xpress%20SARS%20Cov-2/Fact%20Sheets/302-3801%25VWQY-MCA-0%20PATIENT %20FACT%20SHEET.pdfRAD, CHEST, 1 VIEW, NON [id number] 23:45:00Reason for exam:->FEVERShould this be performed at the bedside?->Yes [facility] 1975 Sex: FFINAL REPORT INDICATION: FEVER COMPARISON: None TECHNIQUE: Single frontal view of the chest. FINDINGS: Lungs and pleura: Clear lungs. No effusion. Heart and mediastinum: Normal heart size.Unremarkable mediastinal contours. Osseous structures: No acute abnormality. Other: Status post cholecystectomy. IMPRESSION: No acute intrathoracic abnormality. Signed: Walter Ferrera [facility] Verified Date/Time: 05/19/2022 23:45:19 HCG, QUANTITATIVE, [id number] 23:44:20 Test Item Value Reference Range Interpretation Comments GONADOTROPIN, CHORIONIC (HCG) QUANT < mIU/mL 0-10 (BEAKER) (test code = 649) Non- Females: <10 mIU/mL Females: Gestation Age Reference Range(mIU/mL) 0.2-1 Week 5-50 1-2 Weeks 50-500 2-3 Weeks 100-5,000 3-4 Weeks 500-10,000 4-5 Weeks 1,000-50,000 5-6 Weeks 10,000-100,000 6-8 Weeks 15,000- 200,000 2-3 Months 10,000-100,000 Blanket Maker ID - GENEVIEVE OMPREHENSIVE METABOLIC [id number] 23:37:53 Test Item Value Reference Range Interpretation Comments TOTAL PROTEIN 7.4 gm/dL 6.0-8.3 (BEAKER) (test code = 770) ALBUMIN (BEAKER) 4.2 g/dL 3.5-5.0 (test code = 1145) ALKALINE PHOSPHATASE 206 U/L 40-150 H (BEAKER) (test code = 346) BILIRUBIN TOTAL 0.7 mg/dL 0.2-1.2 (BEAKER) (test code = 377) SODIUM (BEAKER) (test 133 meq/L 136-145 L code = 381) POTASSIUM (BEAKER) 3.3 meq/L 3.5-5.1 L (test code = 379) CHLORIDE (BEAKER) 102 meq/L 98-107 (test code = 382) CO2 (BEAKER) (test 22 meq/L 22-29 code = 355) BLOOD UREA NITROGEN 7 mg/dL 7-21 (BEAKER) (test code = 354) CREATININE (BEAKER) 0.76 mg/dL 0.57-1.25 (test code = 358) GLUCOSE RANDOM 120 mg/dL 70-105 H (BEAKER) (test code = 652) CALCIUM (BEAKER) 9.1 mg/dL 8.4-10.2 (test code = 697) AST (SGOT) (BEAKER) 29 U/L 5-34 (test code = 353) ALT (SGPT) (BEAKER) 17 U/L 6-55 (test code = 347) EGFR (BEAKER) (test INSUFFIC IENT CLINICAL code = 1092) DATA TO CALCULA TE ESTIMATED GFR. Blanket Maker ID - GENEVIEVE [id number] 23:37:53 Test Item Value Reference Range Interpretation Comments LIPASE (BEAKER) (test code = 749) < U/L 8-78 L Blanket Maker ID - GENEVIEVE [id number] 23:22:34 Test Item Value Reference Range Interpretation Comments PARTIAL THROMBOPLASTIN TIME 32.7 seconds 22.5-36.0 (BEAKER) (test code = 760) LACTIC ACID, [id number] 23:21:53 Test Item Value Reference Range Interpretation Comments LACTATE BLOOD VENOUS (2) (BEAKER) 0.69 mmol/L 0.50-2.20 (test code = 6092) Blanket Maker ID - GENEVIEVE MPROTHROMBIN [id number] 23:21:53 Test Item Value Reference Range Interpretation Comments PROTIME (BEAKER) 14.6 seconds 11.9-14.2 H (test code = 759) INR (BEAKER) (test 1.16 See_Comment [Automat ed message] code = 370) The system [employer] generated this result transmitted ref erence range: <=5.90. The reference range was not used to int erpret this result as normal/abnormal . RECOMMENDED COUMADIN/WARFARIN INR THERAPY RANGESSTANDARD DOSE: 2.0 - 3.0 Includes: PROPHYLAXIS for venous thrombosis, systemic embolization; TREATMENT for venous thrombosis and/or pulmonary embolus.HIGH RISK: Target INR is 2.5-3.5 for patients with mechanical heart valves.CBC W/PLT COUNT & AUTO [id number] 23:15:18 Test Item Value Reference Range Interpretation Comments WHITE BLOOD CELL COUNT (BEAKER) 3.8 K/ L 3.5-10.5 (test code = 775) RED BLOOD CELL COUNT (BEAKER) 4.25 M/ L 3.93-5.22 (test code = 761) HEMOGLOBIN (BEAKER) (test code = 11.4 GM/DL 11.2-15.7 410) HEMATOCRIT (BEAKER) (test code = 34.2 % 34.1-44.9 411) MEAN CORPUSCULAR VOLUME (BEAKER) 80.5 fL 79.4-94.8 (test code = 753) MEAN CORPUSCULAR HEMOGLOBIN 26.8 pg 25.6-32.2 (BEAKER) (test code = 751) MEAN CORPUSCULAR HEMOGLOBIN CONC 33.3 GM/DL 32.2-35.5 (BEAKER) (test code = 752) RED CELL DISTRIBUTION WIDTH 14.4 % 11.7-14.4 (BEAKER) (test code = 412) PLATELET COUNT (BEAKER) (test code 85 K/CU MM 150-450 L = 756) MEAN PLATELET VOLUME (BEAKER) 12.2 fL 9.4-12.3 (test code = 754) NUCLEATED RED BLOOD CELLS (BEAKER) 0 /100 WBC 0-0 (test code = 413) NEUTROPHILS RELATIVE PERCENT 87 % (BEAKER) (test code = 429) LYMPHOCYTES RELATIVE PERCENT 5 % (BEAKER) (test code = 430) MONOCYTES RELATIVE PERCENT 6 % (BEAKER) (test code = 431) EOSINOPHILS RELATIVE PERCENT 1 % (BEAKER) (test code = 432) BASOPHILS RELATIVE PERCENT 1 % (BEAKER) (test code = 437) NEUTROPHILS ABSOLUTE COUNT 3.25 K/ L 1.56-6.13 (BEAKER) (test code = 670) LYMPHOCYTES ABSOLUTE COUNT 0.20 K/ L 1.18-3.74 L (BEAKER) (test code = 414) MONOCYTES ABSOLUTE COUNT (BEAKER) 0.24 K/ L 0.24-0.36 (test code = 415) EOSINOPHILS ABSOLUTE COUNT 0.03 K/ L 0.04-0.36 L (BEAKER) (test code = 416) BASOPHILS ABSOLUTE COUNT (BEAKER) 0.02 K/ L 0.01-0.08 (test code = 417) IMMATURE GRANULOCYTES-RELATIVE 1 % 0-1 PERCENT (BEAKER) (test code = 2801) BLOOD GAS, [id number] 23:08:30 Test Item Value Reference Range Interpretation Comments PH VENOUS (BEAKER) (test code = 7.42 7.32-7.42 701) PCO2 VENOUS (BEAKER) (test code = 36 mm Hg 41-51 L 755) PO2 VENOUS (BEAKER) (test code = 78 mm Hg 25-40 H 702) O2 SATURATION VENOUS (BEAKER) 94.5 % 40.0-70.0 H (test code = 703) HCO3 VENOUS (BEAKER) (test code = 22 mmol/L 21-29 705) BASE EXCESS VENOUS (BEAKER) (test -1.0 mmol/L -2.0-3.0 code = 704) PATIENT TEMPERATURE (BEAKER) 39.0 (test code = 1818) FIO2 (BEAKER) (test code = 1819) 21.0 SARS-COV2/RT-PCR ([facility])2020-05-24 23:21:00 Test Item Value Reference Range Interpretation Comments SARS-COV2/RT-PCR (test Not Detected Not Detected, Negative code = 9333681) SARS-COV-2 PERFORMING LAB [facility] (test code = 1680409) Negative results do not preclude SARS-CoV-2 infection and should not be used as the sole basis for patient management decisions. Negative results must be combined with clinical observations, patient history, and epidemiological information. A false negative result may occur if a specimen is improperly collected, transported or handled.The limit of detection for this assay is 250 copies/mL.This SARS CoV-2 test is a rapid, real-time RT-PCR test intended for the qualitative detection of nucleic acid from SARS-CoV-2 in a nasopharyngeal swab specimen collected from individuals suspected of COVID-19 by their healthcare provider.This test has not been Food and Drug Administration (FDA) cleared or approved and has been authorized by FDA under an Emergency Use Authorization (EUA). This EUA will be effective until the declaration that circumstances exist justifying the authorization of the emergency use of in vitro diagnostic tests for detection and/or diagnosis of COVID-19 is terminated under Section 564(b)(2) of the Act or the EUA is revoked under Section 564(g) of the Act.Fact Sheet for Healthcare Pro viders:https://www.[employer]/Documents/Xpert%20Xpress%20SARS%20CoV-2/Fact%20Sh eets/3023802%45HHCR-XQB-8%20HEALTHCARE%20PROVIDERS%20FACT%20SHEET.pdfFact Sheet for Healthcare Patients:https://www.[employer]/Documents/Xpert%20Xpress%20SARS%20CoV-2/Fact%20Sheets/3023801%20SARS-COV -2%20PATIENT%20FACT%20SHEET.pdfPerforming Laboratory:[facility] [place] [place] [address]
[2022-07-23 12:19] LABS: Urine Blood 3+ (Negative); Urine Glucose Trace (Negative); Urine Protein 1+ (Negative); Urine Specific Gravity >=1.030 (1.005-1.030)
[2022-07-23] MEDS ORDERED: NA CHLORIDE 0.9% 1,000 ML ONE ×2 (12:39→15:56)
[2022-07-23] MEDS ORDERED: FAMOTIDINE 20 MG/2 ML VIAL IV ONE (12:39)
[2022-07-23] MEDS ORDERED: ONDANSETRON 4 MG/2 ML VIAL ONE (12:39)
[2022-07-23 12:49] LABS: Urine Mucus Slight /HPF (None Seen); Urine RBC >50 /HPF (None Seen)
[2022-07-23 13:04] LABS: Albumin 3.9 g/dL (3.4-5.0); Bilirubin Total 1.5 mg/dL (0.2-1.0); Potassium 3.6 mmol/L (3.5-5.1); Protein, Total 7.4 g/dL (6.4-8.2); Troponin High Sensitivity 21.2 pg/mL (<58.9)
[2022-07-23 13:21] LABS: Absolute Lymphocytes (CBC) 0.6 K/uL (0.7-4.9); Hematocrit 36.4 % (36.0-45.0); MCV 83.2 fL (80-100); MPV 9.8 fL (7.6-11.3); RBC Red Blood Cell Count 4.38 M/uL (3.86-4.86)
[2022-07-23] MEDS ORDERED: PROMETHAZINE INJ 25 MG/ML AMP ONE (14:17)
[2022-07-23] MEDS ORDERED: MORPHINE 4 MG/ML SYR ONE (14:18)
[2022-07-23] MEDS ORDERED: METHYLPREDNISOLONE 125 MG INJ ONE (15:56)
[2022-07-23] MEDS ORDERED: CIPROFLOXACIN 400mg IV 400 MG/200 ML BAG IV ONE (15:56)
[2022-07-23] MEDS ORDERED: METRONIDAZOLE 500mg IVPB 500 MG/100 ML BAG IV ONE (15:56)
--- NOTE | 2022-07-23 15:59 | ER ---
Nurse's Notes [facility] Name: Suzette Bush Age: 46 yrs Sex: Female : 1975 Arrival Date: 07/23/2022 Time: 11:17 Bed 20 Private MD: Diagnosis: Abdominal tenderness;Vomiting;Dehydration Presentation: 07/23 12:09 Chief complaint: Patient states: n/v and abdominal pain for 1 week. Seen at [place] for mb8 same issue, sent home on Ativan, Reglan, and Augmentin, has not picked up the scripts. Tried to go to her GI doctor but her doctor told her to come here first. Ebola Screen: No symptoms or risks identified at this time. Initial Sepsis Screen: Does the patient meet any 2 criteria? No. Patient's initial sepsis screen is negative. Does the patient have a suspected source of infection? No. Patient's initial sepsis screen is negative. Risk Assessment: Do you want to hurt yourself or someone else? Patient reports no desire to harm self or others. Onset of symptoms is unknown. 12:09 Method Of Arrival: Ambulatory mb8 12:09 Acuity: MARIA ELENA 3 mb8 12:18 Coronavirus screen: Vaccine status: Patient reports being unvaccinated. mb8 Triage Assessment: 12:10 General: Appears uncomfortable, Behavior is calm, cooperative, appropriate for age, mb8 anxious. Historical: - Allergies: 12:28 No Known Allergies; mb8 - PMHx: 12:10 Anxiety; Depression; Pancreatitis; mb8 - PSHx: 15:37 Cholecystectomy; mb8 - Social history:: Smoking status: Patient reports the use of cigarette tobacco products, denies chronic smoking, but will smoke occasionally. Screenin:13 Abuse screen: Denies threats or abuse. Denies injuries from another. Nutritional mb8 screening: No deficits noted. Tuberculosis screening: No symptoms or risk factors identified. Fall Risk None identified. Assessment: 12:12 Pain: Complains of pain in abdomen. GI: Abdomen is flat, non-distended, Bowel sounds mb8 present X 4 quads. Abd is soft Reports lower abdominal pain, upper abdominal pain, nausea, vomiting. 13:00 General: Patient reports still hurting, Dr. Leonard made aware. He is reviewing her mb8 chart from her visit at [place]. . 13:27 General: Patient reports she is feeling worse. aware. . mb8 13:58 Reassessment: Patient and/or family updated on plan of care and expected duration. Pain mb8 level reassessed. Patient states symptoms have not improved. 14:33 Reassessment: Patient and/or family updated on plan of care and expected duration. Pain mb8 level reassessed. Patient reports pain is still a 10 but reports nausea has decreased. Vital Signs: 12:09 BP 146 / 99; Pulse 81; Resp 20; Temp 98.6; Pulse Ox 100% on R/A; Pain 10/10; mb8 13:30 BP 161 / 93; Pulse 90; Resp 20; Pulse Ox 100% ; Pain 10/10; mb8 13:58 BP 152 / 95; Pulse 86; Resp 22; Pulse Ox 100% ; Pain 10/10; mb8 14:34 BP 149 / 89; Pulse 72; Resp 18; Pulse Ox 100% ; Pain 10/10; mb8 15:10 BP 145 / 88; Pulse 76; Resp 18; Pulse Ox 100% on R/A; Pain 10/10; mb8 ED Course: 11:17 Patient arrived in ED. rg4 12:01 Marcos Oglesby, RN is Primary Nurse. mb8 12:10 Triage completed. mb8 12:12 Arm band placed on. mb8 12:13 Patient has correct armband on for positive identification. Bed in low position. Call mb8 light in reach. Side rails up X2. Client placed on continuous cardiac and pulse oximetry monitoring. NIBP monitoring applied. 12:13 No provider procedures requiring assistance completed. Inserted saline lock: 20 gauge mb8 in right antecubital area, using aseptic technique. Blood collected. 12:22 Mayo Leonard MD is Attending Physician. chapo 12:45 EKG done, by ED staff, reviewed by Mayo Leonard MD. mb7 14:04 Awaiting re-evaluation by ER provider. mb8 15:57 Shelly Evans MD is Referral Physician. chapo 17:38 IV discontinued, intact, bleeding controlled, No redness/swelling at site. Pressure mb8 dressing applied. Administered Medications: 12:45 Drug: NS 0.9% 1000 ml Route: IV; Rate: 1 bolus; Site: right antecubital; mb8 13:28 Follow up: Response: No adverse reaction; IV Status: Completed infusion mb8 12:46 Drug: Pepcid (famotidine) 20 mg Route: IVP; Site: right antecubital; mb8 13:28 Follow up: Response: No adverse reaction mb8 12:46 Drug: Zofran (Ondansetron) 4 mg Route: IVP; Site: right antecubital; mb8 13:28 Follow up: Response: No adverse reaction mb8 14:15 Drug: morphine 4 mg Route: IVP; Infused Over: 4 mins; Site: right antecubital; mb8 14:38 Follow up: Response: No adverse reaction; No change in condition mb8 14:15 Drug: Phenergan (promethazine) 25 mg Route: IM; Site: right deltoid; mb8 14:38 Follow up: Response: No adverse reaction; Nausea is decreased mb8 15:57 Drug: Cipro (ciprofloxacin) 400 mg Volume: 200 ml; Route: IVPB; Infused Over: 60 mins; mb8 Site: right antecubital; 17:35 Follow up: Response: No adverse reaction; IV Status: Completed infusion mb8 15:57 Drug: Flagyl (metroNIDAZOLE) 500 mg Volume: 100 ml; Route: IVPB; Rate: 200 ml/hr; mb8 Infused Over: 30 mins; Site: right antecubital; 16:54 Follow up: Response: No adverse reaction; IV Status: Completed infusion mb8 15:57 Drug: NS 0.9% 1000 ml Route: IV; Rate: 1 bolus; Site: right antecubital; mb8 16:54 Follow up: Response: No adverse reaction; IV Status: Completed infusion mb8 15:57 Drug: SOLU-Medrol (methylPrednisoLONE) 125 mg Route: IVP; Site: right antecubital; mb8 16:55 Follow up: Response: No adverse reaction mb8 Medication: 12:13 VIS not applicable for this client. mb8 Outcome: 15:58 Discharge ordered by . chapo 17:40 Discharged to home ambulatory. mb8 17:40 Condition: stable 17:40 Discharge instructions given to patient, Instructed on discharge instructions, follow up and referral plans. no drinking with medication, no driving heavy equipment, medication usage, Demonstrated understanding of instructions, follow-up care, medications, Prescriptions given X 5 17:41 Patient left the ED. mb8 Signatures: Mayo Leonard MD MD cha Garcia, Rubi rg4 Ilene Nguyen mb7 Marcos Oglesby, RN RN mb8
--- NOTE | 2022-07-23 15:59 | EDPHYS ---
Physician Documentation [facility] Name: Suzette Bush Age: 46 yrs Sex: Female : 1975 Arrival Date: 07/23/2022 Time: 11:17 Bed 20 Private MD: FRED Physician Mayo Leonard HPI: 07/23 15:50 This 46 yrs old Female presents to ER via Ambulatory with complaints of chapo Vomiting, Abdominal Pain. 15:50 The patient presents to the emergency department with nausea, vomiting, abdominal pain, chapo of the right upper quadrant, left upper quadrant, right lower quadrant and left lower quadrant. Onset: The symptoms/episode began/occurred 7 day(s) ago. Possible causes: unknown, flare up of bowel problem, ulcerative colitis. The symptoms are aggravated by food , The symptoms are alleviated by nothing. remaining still. Associated signs and symptoms: Pertinent positives: abdominal pain, anorexia, nausea, vomiting. Severity of symptoms: At their worst the symptoms were mild moderate in the emergency department the symptoms are unchanged. The patient has not experienced similar symptoms in the past. Historical: - Allergies: 12:28 No Known Allergies; mb8 - PMHx: 12:10 Anxiety; Depression; Pancreatitis; mb8 - PSHx: 15:37 Cholecystectomy; mb8 - Social history:: Smoking status: Patient reports the use of cigarette tobacco products, denies chronic smoking, but will smoke occasionally. ROS: 15:53 Constitutional: Negative for fever, chills, and weight loss, Eyes: Negative for injury, chapo pain, redness, and discharge, ENT: Negative for injury, pain, and discharge, Neck: Negative for injury, pain, and swelling, Cardiovascular: Negative for chest pain, palpitations, and edema, Respiratory: Negative for shortness of breath, cough, wheezing, and pleuritic chest pain, Back: Negative for injury and pain, : Negative for injury, bleeding, discharge, and swelling, MS/Extremity: Negative for injury and deformity, Skin: Negative for injury, rash, and discoloration, Neuro: Negative for headache, weakness, numbness, tingling, and seizure, Psych: Negative for depression, anxiety, suicide ideation, homicidal ideation, and hallucinations, Allergy/Immunology: Negative for hives, rash, and allergies, Endocrine: Negative for neck swelling, polydipsia, polyuria, polyphagia, and marked weight changes. 15:53 Abdomen/GI: Positive for abdominal pain, nausea and vomiting, diarrhea, abdominal cramps. Exam: 15:53 Constitutional: This is a well developed, well nourished patient who is awake, alert, chapo and in no acute distress. Head/Face: Normocephalic, atraumatic. Eyes: Pupils equal round and reactive to light, extra-ocular motions intact. Lids and lashes normal. Conjunctiva and sclera are non-icteric and not injected. Cornea within normal limits. Periorbital areas with no swelling, redness, or edema. ENT: Nares patent. No nasal discharge, no septal abnormalities noted. Tympanic membranes are normal and external auditory canals are clear. Oropharynx with no redness, swelling, or masses, exudates, or evidence of obstruction, uvula midline. Mucous membranes moist. Neck: Trachea midline, no thyromegaly or masses palpated, and no cervical lymphadenopathy. Supple, full range of motion without nuchal rigidity, or vertebral point tenderness. No Meningismus. Chest/axilla: Normal chest wall appearance and motion. Nontender with no deformity. No lesions are appreciated. Cardiovascular: Regular rate and rhythm with a normal S1 and S2. No gallops, murmurs, or rubs. Normal PMI, no JVD. No pulse deficits. Respiratory: Lungs have equal breath sounds bilaterally, clear to auscultation and percussion. No rales, rhonchi or wheezes noted. No increased work of breathing, no retractions or nasal flaring. Back: No spinal tenderness. No costovertebral tenderness. Full range of motion. Female : Normal external genitalia. Skin: Warm, dry with normal turgor. Normal color with no rashes, no lesions, and no evidence of cellulitis. MS/ Extremity: Pulses equal, no cyanosis. Neurovascular intact. Full, normal range of motion. Neuro: Awake and alert, GCS 15, oriented to person, place, time, and situation. Cranial nerves II-XII grossly intact. Motor strength 5/5 in all extremities. Sensory grossly intact. Cerebellar exam normal. Normal gait. 15:53 ECG was reviewed by the Attending Physician. 15:53 Abdomen/GI: Inspection: abdomen appears normal, Bowel sounds: hyperactive, Palpation: nontender, in all quadrants, Liver: no appreciated palpable abnormalities, Hernia: not appreciated. 16:04 ECG was reviewed by the Attending Physician. chapo Vital Signs: 12:09 BP 146 / 99; Pulse 81; Resp 20; Temp 98.6; Pulse Ox 100% on R/A; Pain 10/10; mb8 13:30 BP 161 / 93; Pulse 90; Resp 20; Pulse Ox 100% ; Pain 10/10; mb8 13:58 BP 152 / 95; Pulse 86; Resp 22; Pulse Ox 100% ; Pain 10/10; mb8 14:34 BP 149 / 89; Pulse 72; Resp 18; Pulse Ox 100% ; Pain 10/10; mb8 15:10 BP 145 / 88; Pulse 76; Resp 18; Pulse Ox 100% on R/A; Pain 10/10; mb8 MDM: 12:22 Patient medically screened. chapo 15:56 Differential diagnosis: Nonspecific abd pain, gastritis, pancreatitis, diverticulitis, chapo viral gastroenteritis, gastroenteritis, gastritis, gastroesophageal reflux disease, GI Bleed, Hepatitis, Mesenteric ischemia or infarction, myocardia ischemia or infarction, non-specific abd pain, pancreatitis. Data reviewed: vital signs, nurses notes, lab test result(s), EKG, radiologic studies, CT scan. Data interpreted: media monitor: rate is 76 beats/min, rhythm is regular, Pulse oximetry: on room air is 100 %. Test interpretation: by ED physician or midlevel provider: ECG, plain radiologic studies. Counseling: I had a detailed discussion with the patient and/or guardian regarding: the historical points, exam findings, and any diagnostic results supporting the discharge/admit diagnosis, lab results, radiology results, the need for outpatient follow up, for definitive care, a family practitioner, a director agricultural services. 07/23 12:19 Order name: Urine Dipstick-Ancillary; Complete Time: 12:22 EDSD 07/23 12:24 Order name: CBC with Diff; Complete Time: 15:34 [facility] 07/23 12:24 Order name: CMP; Complete Time: 15:34 [facility] 07/23 12:24 Order name: Lipase; Complete Time: 15:34 [facility] 07/23 12:24 Order name: Urine Microscopic Only; Complete Time: 15:34 [facility] 07/23 12:24 Order name: Troponin High Sensitivity; Complete Time: 15:34 [facility] 07/23 12:14 Order name: Urine Dipstick-Ancillary (obtain specimen); Complete Time: 12:18 mb8 07/23 12:24 Order name: IV Saline Lock; Complete Time: 12: [facility] 07/23 12:24 Order name: Labs collected and sent; Complete Time: : [facility] 07/23 12:24 Order name: EKG; Complete Time: 12: [facility] 07/23 12:24 Order name: EKG - Nurse/Tech; Complete Time: 12:45 [facility] EC:53 Rate is 76 beats/min. Rhythm is regular. QRS [place] is Normal. NM interval is normal. QRS chapo interval is normal. QT interval is normal. No Q waves. T waves are Normal. No ST changes noted. Clinical impression: NSR w/ Non-specific ST/T Changes and No evidence of ischemia. Interpreted by me. Reviewed by me. Administered Medications: 12:45 Drug: NS 0.9% 1000 ml Route: IV; Rate: 1 bolus; Site: right antecubital; mb8 13:28 Follow up: Response: No adverse reaction; IV Status: Completed infusion mb8 12:46 Drug: Pepcid (famotidine) 20 mg Route: IVP; Site: right antecubital; mb8 13:28 Follow up: Response: No adverse reaction mb8 12:46 Drug: Zofran (Ondansetron) 4 mg Route: IVP; Site: right antecubital; mb8 13:28 Follow up: Response: No adverse reaction mb8 14:15 Drug: morphine 4 mg Route: IVP; Infused Over: 4 mins; Site: right antecubital; mb8 14:38 Follow up: Response: No adverse reaction; No change in condition mb8 14:15 Drug: Phenergan (promethazine) 25 mg Route: IM; Site: right deltoid; mb8 14:38 Follow up: Response: No adverse reaction; Nausea is decreased mb8 15:57 Drug: Cipro (ciprofloxacin) 400 mg Volume: 200 ml; Route: IVPB; Infused Over: 60 mins; mb8 Site: right antecubital; 17:35 Follow up: Response: No adverse reaction; IV Status: Completed infusion mb8 15:57 Drug: Flagyl (metroNIDAZOLE) 500 mg Volume: 100 ml; Route: IVPB; Rate: 200 ml/hr; mb8 Infused Over: 30 mins; Site: right antecubital; 16:54 Follow up: Response: No adverse reaction; IV Status: Completed infusion mb8 15:57 Drug: NS 0.9% 1000 ml Route: IV; Rate: 1 bolus; Site: right antecubital; mb8 16:54 Follow up: Response: No adverse reaction; IV Status: Completed infusion mb8 15:57 Drug: SOLU-Medrol (methylPrednisoLONE) 125 mg Route: IVP; Site: right antecubital; mb8 16:55 Follow up: Response: No adverse reaction mb8 Disposition Summary: 07/23/22 15:58 Discharge Ordered Location: Home chapo Problem: new chapo Symptoms: have improved chapo Condition: Stable chapo Diagnosis - Abdominal tenderness chapo - Vomiting chapo - Dehydration chapo Followup: chapo - With: Private Physician - When: 2 - 3 days - Reason: Recheck today's complaints, Continuance of care, Re-evaluation by your physician Followup: chapo - With: Shelly Evans MD - When: 2 - 3 days - Reason: Recheck today's complaints, Re-evaluation by your physician Discharge Instructions: - Discharge Summary Sheet chapo - Abdominal Pain, Adult chapo - Dehydration, Adult chapo - Abdominal Pain, Adult, [id number] chapo - Rehydration, Adult chapo - Vomiting, Adult chapo Forms: - Medication Reconciliation Form [facility] - Thank You Letter [facility] - Antibiotic Education [facility] - Prescription Opioid Use [facility] Prescriptions: - Cipro 250 mg Oral Tablet - take 1 tablet by ORAL route every 12 hours; 14 tablet; Refills: 0, Product chapo Selection Permitted - Pepcid 20 mg Oral Tablet - take 1 tablet by ORAL route every 12 hours for 21 days; 42 tablet; Refills: 0, [facility] Product Selection Permitted - Zofran 4 mg Oral Tablet - take 1 tablet by ORAL route every 8 hours As needed; 30 tablet; Refills: 0, [facility] Product Selection Permitted - dicyclomine 20 mg Oral Tablet - take 1 tablet by ORAL route 4 times per day; 28 tablet; Refills: 0, Product chapo Selection Permitted - Medrol (Kwame) 4 mg Oral Tablets, Dose Pack - take 1 tablet by ORAL route as directed - follow package instructions; 1 chapo packet; Refills: 0, Product Selection Permitted - Flagyl 375 mg Oral capsule - take 1 capsule by ORAL route every 8 hours; 21 capsule; Refills: 0, Product [facility] Selection Permitted - promethazine 25 mg Rectal suppository - insert 1 suppository by RECTAL route every 6 hours prn intractable nausea jmm vomiting; 20 suppository; Refills: 0, Product Selection Permitted Signatures: Dispatcher [employer] Mayo Roberts MD MD cha Bates, Michael RN RN mb8 Corrections: (The following items were deleted from the chart) 13:11 12:25 Abdomen Pelvis W [id number] ordered. JERALD MARQUES
[2022-07-23 19:29] VITALS: TEMP 98.6; O2SAT 100
[2022-07-23 19:40] VITALS: BP 145/88
--- NOTE | 2022-07-24 15:41 | EKG ---
Test Date: 2022-07-23 Test Time: 12:46:16 .Net Architect: MB MEASUREMENT RESULTS: Intervals: Rate: 76 RI: 134 QRSD: 72 QT: 404 QTc: 454 [place]: P: 75 RI: 134 QRS: 64 T: 26 INTERPRETIVE STATEMENTS: Normal sinus rhythm Normal ECG Compared to ECG 04/11/2021 18:04:16 No significant changes Electronically Signed On 07-24-22 15:38:58 CDT by Flavio Munoz
== END 2022-07-23 17:41 | disposition home or self-care (01) ==
LOC: ER 11:15
DX: R11.10 Vomiting, unspecified (principal); E86.0 Dehydration; R10.819 Abdominal tenderness, unspecified site; F17.210 Nicotine dependence, cigarettes, uncomplicated
CPT/HCPCS: 96365; 96361; 96368; 93005; 85025; 36415; 84484; 83690; 80053; 96375; 96372; 99284; 96366; J2550; J7030 ×2; J2930; J2405; J0744; 81003; 81015